=== PATIENT | female | born 1945 | race Caucasian/White ===

== ENCOUNTER 2019-11-02 12:06 | Inpatient (IN) | payer MEDICARE, OTHER ==
[~2019-11-02] VITALS: Ht 160 cm; Wt 81.2 kg
--- OUTSIDE RECORDS SUMMARY | ~2019-11-02 | XMS | Encounter Summary ---
Demographics + + + | Address | [address] | | | [place] [address] | + + + | Home Phone | | + + + | Preferred Language | Unknown | + + + | Marital Status | | + + + | Muslim Affiliation | 1009 | + + + | Race | Unknown | + + + | Ethnic Group | Unknown | + + + Author + + + | Author | [facility] | | | and Leifana | + + + | Organization | [facility] | | | and Leifana | + + + | Address | Unknown | + + + | Phone | Unavailable | + + + Support + + +---------+ + | Name | Relationship | Address | Phone | + + +---------+ + | Ruben Kolb | ECON | Unknown | | + + +---------+ + Care Team Providers + +------+ + | Care Paint Pourer Name | Role | Phone | + +------+ + PCP | Unavailable | + +------+ + Encounter Details +--------+ + + + + | Date | Type | Department | Care Team | Description | +--------+ + + + + | 06/09/ | [facility] | [facility] | Luis Duron, | | | 1998 | Encounter | MED CTR XRAY [address] | MD [address] [facility] | | | | | Janet Garcia | [place] | | | | | [place] [address] | [address] | | | | | [phone] | | | +--------+ + + + + Social History + +-------+ +--------+------+ | Tobacco Use | Types | Packs/Day | Years | Date | | | | | Used | | + +-------+ +--------+------+ | Never Assessed | | | | | + +-------+ +--------+------+ + + + | Sex Assigned at | Date Recorded | | | | + + + | Not on file | | + + + + + + + | Job Start Date | Occupation | Industry | + + + + | Not on file | Not on file | Not on file | + + + + + + + + | Travel History | Travel Start | Travel End | + + + + + + | No recent travel history available. | + + documented as of this encounter Plan of Treatment Not on filedocumented as of this encounter Visit Diagnoses Not on filedocumented in this encounter"
--- OUTSIDE RECORDS SUMMARY | ~2019-11-02 | XMS | Encounter Summary ---
Demographics + + + | Address | [address] | | | [place] [address] | + + + | Home Phone | | + + + | Preferred Language | Unknown | + + + | Marital Status | Single | + + + | Hindu Affiliation | Unknown | + + + | Race | Unknown | + + + | Ethnic Group | Other Race | + + + Author + + + | Author | [facility] | + + + | Organization | [facility] | + + + | Address | Unknown | + + + | Phone | Unavailable | + + + Care Team Providers + +------+ + | Care Fire Control Technician G Name | Role | Phone | + +------+ + PCP | Unavailable | + +------+ + Encounter Details +--------+ + + + + | Date | Type | Department | Care Team | Description | +--------+ + + + + | 12/26/ | Hospital | Dermatopathology | | | | 2012 | Encounter | [address] | | | | | | Mailcode: CH16D | | | | | | [facility] | | | | | | and Healing, | | | | | | [address] | | | | | | Floor [place], [place] | | | | | | [address] | | | | | | [phone] | | | +--------+ + + + [...]
--- OUTSIDE RECORDS SUMMARY | ~2019-11-02 | XMS | Encounter Summary ---
Demographics + + + | Address | [address] | | | [place] [address] | + + + | Home Phone | | + + + | Preferred Language | Unknown | + + + | Marital Status | | + + + | Nondenominational Affiliation | 1009 | + + + | Race | Unknown | + + + | Ethnic Group | Unknown | + + + Author + + + | Author | [facility] | | | and Leifana | + + + | Organization | [facility] | | | and Leifana | [...] Team Providers + +------+ + | Care Subassembler Name | Role | Phone | + +------+ + PCP | Unavailable | + +------+ + Encounter Details +--------+ + + + + | Date | Type | Department | Care Team | Description | +--------+ + + + + | 06/21/ | Hospital | [facility] GENERIC OP | | LOC OSTEOARTH | | 2003 | Encounter | CONVERSION [address] | | NOS-L/LEG | | | | DESIRE STEINER | | | | | | [place] | | | | | | [address] | | | | | | [phone] | | | +--------+ + + + [...] filedocumented as of this encounter Visit Diagnoses + + | Diagnosis | + + | Localized osteoarthrosis not specified whether primary or secondary, lower leg | + + documented in this encounter"
--- OUTSIDE RECORDS SUMMARY | ~2019-11-02 | XMS | Clinical Summary ---
Demographics + + + | Address | [address] | | | [place] [address] | + + + | Home Phone | | + + + | Preferred Language | Unknown | + + + | Marital Status | | + + + | Jain Affiliation | 1009 | + + + | Race | Unknown | + + + | Ethnic Group | Unknown | + + + Author + + + | Author | [facility] | | | and Leifana | + + + | Organization | [facility] | | | and Leifana [...] + +------+ + | Care Fire Control Officer Name | Role | Phone | + +------+ + | Sebastian Mann MD | PCP | | + +------+ + Allergies Not on File Medications Not on file Active Problems Not on file Social History + +-------+ +--------+------+ | Tobacco [...] recent travel history available. | + + Last Filed Vital Signs Not on file Plan of Treatment + + + + + | Health Maintenance | Due Date | Last Done | Comments | + + + + + | Vaccine: | | | | | Dtap/Tdap/Td (1 - | 8 | | | | Tdap) | | | | + + + + + | Vaccine: Zoster (1 | | | | | of 2) | 7 | | | + + + + + | Breast Cancer | | | | | Screening | 2 | | | + + + + + | Vaccine: | | | | | Pneumococcal 65+ (1 | 2 | | | | of 2 - PCV13) | | | | + + + + + | Vaccine: Influenza | | | | | (Season Ended) | 0 | | | + + + + + Results Not on filefrom Last 3 Months Insurance + +--------+ +--------+ +---------+--------+ | Payer | Benefi | Subscriber | Effect | Phone | Address | Type | | | t Plan | ID | medina | | | | | | / | | Dates | | | | | | Group | | | | | | + +--------+ +--------+ +---------+--------+ | MEDICARE | MEDICA | [id number] | 09/25/19 | [phone] | | Medica | | | RE | | 12-Pre | 5 | | re | | | PART A | | sent | | | | | | AND B | | | | | | + +--------+ +--------+ +---------+--------+ + +--------+ +--------+ + + | Guarantor Name | Accoun | Relation to | Date | Phone | Billing Address | | | t Type | Patient | of | | | | | | | | | | + +--------+ +--------+ + + | Lissette Kolb | Person | Self [birth year] | [address] | | | al/Shan | | 1946 | [phone] | [place] | | | [place] | | | [address] ([place]) | [address] | + +--------+ +--------+ + +"
--- OUTSIDE RECORDS SUMMARY | ~2019-11-02 | XMS | Clinical Summary ---
Demographics + + + | Address | [address] | | | [place] [address] | + + + | Home Phone | | + + + | Preferred Language | Unknown | + + + | Marital Status | Single | + + + | Methodist Affiliation | Unknown | + + + | Race | Unknown | + + + | Ethnic Group | Other Race | + + + Author + + + | Author | [facility] | + + + | Organization | [facility] | + + + | Address | Unknown | + + + | Phone | Unavailable | + + + Care Team Providers + +------+ + | Care Director Of Restaurant Operations Name | Role | Phone | + +------+ + PCP | Unavailable | + +------+ + Source Comments JORGE is fully live on both [facility] Ambulatory and [facility] InPatient.[facility] Allergies Not on File Medications Not on [...] Signs Not on file Plan of Treatment Not on file Results Not on filefrom Last 3 Months Insurance + +--------+ +--------+ + +--------+ | Payer | Benefi | Subscriber | Effect | Phone | Address | Type | | | t Plan | ID | medina | | | | | | / | | Dates | | | | | | Group | | | | | | + +--------+ +--------+ + +--------+ | MEDICARE | MEDICA | xxxxxxxxxx | Effect | [phone] | [address] | Medica | | | RE A & | | medina | [address] | [address] | re | | | B | | for | | [place], [place] | | | | | | all | | [phone] | | | | | | dates | | | | + +--------+ +--------+ + +--------+ | [employer] [place] | MUTUAL | [id number] | Effect | | | Indemn | | | OF | | med[place] | | | [place] | | | [place] | | for | | | | | | | | all | | | | | | | | dates | | | | + +--------+ +--------+ + +--------+ + +--------+ +--------+ + + | Guarantor Name | Accoun | Relation to | Date | Phone | Billing Address | | | t Type | Patient | of | | | | | | | | | | + +--------+ +--------+ + + | Lissette Kolb | Person | Self [birth year] | [address] | | | al/Fam | | 1946 | [phone] | [place] | | | [place] | | | 3 (Home) | [address] | + +--------+ +--------+ + +"
--- OUTSIDE RECORDS SUMMARY | ~2019-11-02 | XMS | Encounter Summary ---
Demographics + + + | Address | [address] | | | [place] [address] | + + + | Home Phone | | + + + | Preferred Language | Unknown | + + + | Marital Status | Single | + + + | Worship Affiliation | Unknown | + + + | Race | Unknown | + + + | Ethnic Group | Other Race | + + + Author + + + | Author | [facility] | + + + | Organization | [facility] | + + + | Address | Unknown | + + + | Phone | Unavailable | + + + Care Team Providers + +------+ + | Care Wood Caulker Name | Role | Phone | + +------+ + PCP | Unavailable | + +------+ + Encounter Details +--------+ + + + + | Date | Type | Department | Care Team | Description | +--------+ + + + + | 12/26/ | Hospital | Dermatopathology | | | | 2012 | Encounter | [address] | | | | | | Mailcode: CH16D | | | | | | [facility] | | | | | | and Healing, | | | | | | [address] | | | | | | Floor [place], [place] | | | | | | [address] | | | | | | [phone] | | | +--------+ + + + [...]
--- OUTSIDE RECORDS SUMMARY | ~2019-11-02 | XMS | Clinical Summary ---
Demographics + + + | Address | [address] | | | [place] [address] | + + + | Home Phone | | + + + | Preferred Language | Unknown | + + + | Marital Status | | + + + | Religion Affiliation | 1009 | + + + | Race | Unknown | + + + | Ethnic Group | Unknown | + + + Author + + + | Author | [facility] | | | and Leifana | + + + | Organization | [facility] | | | and Leifana [...] Team Providers + +------+ + | Care Delivery Person Name | Role | Phone | + [...] +--------+ +---------+--------+ | MEDICARE | MEDICA | [id number] | 09/25/19 | [phone] | | Medica [...] | | al/Shan | | 1946 | [phone] | [place] | | | [place] | | | [address] ([place]) | [address] | + +--------+ +--------+ + +"
--- OUTSIDE RECORDS SUMMARY | ~2019-11-02 | XMS | Clinical Summary ---
Demographics + + + | Address | [address] | | | [place] [address] | + + + | Home Phone | | + + + | Preferred Language | Unknown | + + + | Marital Status | Single | + + + | Buddhist Affiliation | Unknown | + + + | Race | Unknown | + + + | Ethnic Group | Other Race | + + + Author + + + | Author | [facility] | + + + | Organization | [facility] | + + + | Address | Unknown | + + + | Phone | Unavailable | + + + Care Team Providers + +------+ + | Care Maple Sugar Maker Name | Role | Phone | + +------+ + PCP | Unavailable | + +------+ + Source Comments JORGE is fully live on both [facility] Ambulatory and [facility] InPatient.[facility] Allergies Not on File Medications Not on [...] | | | | all | | [address] | | | | | | dates | | | | + +--------+ +--------+ + +--------+ | [employer] [place] | MUTUAL | [id number] | Effect | | | Indemn | | | OF | | medina | | | ity | | | [place] | | for | | | | [...] | | al/Fam | | 1946 | [phone] | [place] | | | [place] | | | 3 (Home) | [address] | + +--------+ +--------+ + +"
--- OUTSIDE RECORDS SUMMARY | ~2019-11-02 | XMS | Encounter Summary ---
Demographics + + + | Address | [address] | | | [place] [address] | + + + | Home Phone | | + + + | Preferred Language | Unknown | + + + | Marital Status | Single | + + + | Rastafari Affiliation | Unknown | + + + | Race | Unknown | + + + | Ethnic Group | Other Race | + + + Author + + + | Author | [facility] | + + + | Organization | [facility] | + + + | Address | Unknown | + + + | Phone | Unavailable | + + + Care Team Providers + +------+ + | Care Tunnel Mucker Name | Role | Phone | + +------+ + PCP | Unavailable | + +------+ + Encounter Details +--------+ + + + + | Date | Type | Department | Care Team | Description | +--------+ + + + + | 12/08/ | Hospital | Dermatopathology | | | | 2012 | Encounter | [address] | | | | | | Mailcode: CH16D | | | | | | [facility] | | | | | | and Healing, | | | | | | [address], [address] | | | | | | Floor [place], [place] | | | | | | [address] | | | | | | [phone] | | | +--------+ + + + [...] Not on filedocumented as of this encounter Procedures + +--------+ + + + | Procedure Name | Priori | Date/Time | Associated Diagnosis | Comments | | | ty | | | | + +--------+ + + + | DERMATOPATHOLOGY(WET | Routin | 12/26/2012 | | Results for this | | [facility]) | e | | | procedure are in the | | | | | | results section. | + +--------+ + + + | DERMATOPATHOLOGY(WET | Routin | 12/08/2012 | | Results for this | | [facility]) | e | | | procedure are in the | | | | | | results section. | + +--------+ + + + documented in this encounter Results DERMATOPATHOLOGY(WET [facility]) (12/26/2012) + + + + + + | Component | Value | Ref Range | Performed | Pathologist | | | | | At | Signature | + + + + + + | DERMATOPATH | SOURCE OF SPECIMEN:A Rt. | | [facility] | | | OLOGY(WET | proximal forearm, | | DERMATOPATH | | | MNT) | excision CLINICAL | | OLOGY | | | | DESCRIPTION:Please read | | | | | | margins bx. proven | | | | | | malignant melanoma | | | | | | sutures at digital apex. | | | | | | GROSS | | | | | | DESCRIPTION:Received in | | | | | | formalin is a specimen | | | | | | labeled [place], | | | | | | Lissette:A: Specimen is | | | | | | labeled "R forearm" and | | | | | | consists of an ellipse | | | | | | of brown-osirisin, | | | | | | [id number]. The specimen | | | | | | is oriented by a suture | | | | | | at one apex, which | | | | | | isdesignated as the | | | | | | distal apex. With the | | | | | | suture in the 12:00 | | | | | | position, thespecimen is | | | | | | inked blue from | | | | | | 12:00-3:00-6:00 and | | | | | | black from | | | | | | 6:00-9:00-12:00.The | | | | | | tissue is serially | | | | | | sectioned from 12:00 to | | | | | | 6:00 and | | | | | | submittedrespectively in | | | | | | cassettes A1 | | | | | | | | | | | | A6. MICROSCOPIC | | | | | | DESCRIPTION:There are an | | | | | | increased number of | | | | | | collagen bundles with | | | | | | fibrocytes | | | | | | arrangedparallel to the | | | | | | skin surface with | | | | | | vertically oriented | | | | | | blood vessels. In oneof | | | | | | the sections, there is a | | | | | | small, mostly well | | | | | | circumscribed, | | | | | | predominatelyjunctional | | | | | | melanocytic neoplasm | | | | | | characterized by round | | | | | | to oval nests andsingle | | | | | | melanocytes distributed | | | | | | primarily along the | | | | | | basal layer. Most of | | | | | | themelanocytic nuclei | | | | | | are round to oval, and | | | | | | the cells contain | | | | | | amphophiliccytoplasm | | | | | | with melanin. | | | | | | DIAGNOSIS:SCAR. | | | | | | NOTE: There is no | | | | | | evidence of residual | | | | | | melanoma in these | | | | | | sections. In oneof the | | | | | | sections away from scar, | | | | | | there is a small | | | | | | INCIDENTAL | | | | | | MELANOCYTICNEVUS, | | | | | | JUNCTIONAL TYPE which | | | | | | also appears to be | | | | | | completely excised. | | | | | | VBK:emr12/31/12 | | | | | | My electronic signature | | | | | | indicates that I have | | | | | | personally reviewed | | | | | | alldiagnostic slides, | | | | | | the gross and/or | | | | | | microscopic portion of | | | | | | thisreport and | | | | | | formulated the final | | | | | | diagnosis. | | | | | | Rendering Diagnostician: | | | | | | Bobo Jackson | | | | | | M.DWileyPathologistElectroni | | | | | | ana Signed 01/01/2013 | | | | | | 7:14AM | | | | + + + + + + + + | Specimen | + + | | + + + + + + + | Performing | Address | City/State/Zipcode | Phone Number | | Organization | | | | + + + + + | [facility] | [address] | [place] [address] | | | DERMATOPATHOLOGY | [address] | | | + + + + + DERMATOPATHOLOGY(LEON DUGGAN) (12/08/2012) + + + + + + | Component | Value | Ref Range | Performed | Pathologist | | | | | At | Signature | + + + + + + | DERMATOPATH | SOURCE OF SPECIMEN:A Rt. | | [facility] | | | OLOGY(WET | proximal radial | | DERMATOPATH | | | MNT) | forearm, shave biopsy | | OLOGY | | | | CLINICAL | | | | | | DESCRIPTION:R/o | | | | | | atypa/malignancy. | | | | | | GROSS | | | | | | DESCRIPTION:Received in | | | | | | formalin is a specimen | | | | | | labeled [place], | | | | | | Lissette:A: Specimen is | | | | | | labeled "R prox radial | | | | | | forearm" and consists of | | | | | | an irregularshave of | | | | | | white-brown skin, | | | | | | [id number]. The surgical | | | | | | margin is inked black; | | | | | | thetissue is | | | | | | quadrisected, and | | | | | | entirely submitted in | | | | | | cassette A1. | | | | | | MICROSCOPIC | | | | | | DESCRIPTION:There is a | | | | | | moderately broad, not | | | | | | entirely symmetric, | | | | | | compound | | | | | | melanocyticneoplasm | | | | | | composed of nests, some | | | | | | of them of varying size, | | | | | | as well as | | | | | | singlemelanocytes | | | | | | distributed somewhat | | | | | | irregularly both along | | | | | | and focally abovethe | | | | | | basal layer, including | | | | | | in the mid and upper | | | | | | spinous layers | | | | | | (highlightedwith Melan-A | | | | | | and SOX-10). Beneath, | | | | | | there is a dense | | | | | | infiltrate oflymphocytes | | | | | | and histiocytes, as | | | | | | well as fibrosis. Most | | | | | | of the melanocyticnuclei | | | | | | are moderately large, | | | | | | some of them are | | | | | | irregularly shaped, and | | | | | | mostcontain increased | | | | | | amounts of amphophilic | | | | | | cytoplasm. In a few | | | | | | areas, thereare | | | | | | occasional nests and | | | | | | cords of more uniform | | | | | | appearing | | | | | | melanocytespresent in | | | | | | the upper papillary | | | | | | dermis where there is | | | | | | also solar elastosis. | | | | | | DIAGNOSIS:MELANOMA, | | | | | | RIGHT PROXIMAL RADIAL | | | | | | FOREARM, MEASURING | | | | | | APPROXIMATELY 0.35MM | | | | | | INTHICKNESS, | | | | | | NON-ULCERATED, IN | | | | | | ASSOCIATION WITH A | | | | | | PRE-EXISTING NEVUS. | | | | | | NOTE: While subtle, | | | | | | marked asymmetry within | | | | | | the epidermal | | | | | | componentsuggests | | | | | | MELANOMA, in which | | | | | | precise thickness | | | | | | measurements are | | | | | | challenginggiven an | | | | | | indistinct interface | | | | | | with pre-existing nevus. | | | | | | The melanoma, whichhas | | | | | | less than one | | | | | | mitosis/mm2 in the small | | | | | | dermal component, | | | | | | extendsclosely to the | | | | | | peripheral margins and | | | | | | additional treatment to | | | | | | ensurecomplete removal | | | | | | would be prudent. | | | | | | KPW:emr12/11/12 My | | | | | | electronic signature | | | | | | indicates that I have | | | | | | personally reviewed | | | | | | alldiagnostic slides, | | | | | | the gross and/or | | | | | | microscopic portion of | | | | | | thisreport and | | | | | | formulated the final | | | | | | diagnosis. | | | | | | Rendering Diagnostician: | | | | | | Nicholas Kovacs | | | | | | NoelPathologistElectroni | | | | | | ana Signed 12/12/2012 | | | | | | 11:28AM | | | | + + + + + + + + | Specimen | + + | | + + + + + + + | Performing | Address | City/State/Zipcode | Phone Number | | Organization | | | | + + + + + | [facility] | [address] | [place] [address] | | | DERMATOPATHOLOGY | [address] | | | + + + + + documented in this encounter Visit Diagnoses Not on filedocumented in this encounter
--- OUTSIDE RECORDS SUMMARY | ~2019-11-02 | XMS | Encounter Summary ---
Demographics + + + | Address | [address] | | | [place] [address] | + + + | Home Phone | | + + + | Preferred Language | Unknown | + + + | Marital Status | | + + + | Bahai Affiliation | 1009 | + + + | Race | Unknown | + + + | Ethnic Group | Unknown | + + + Author + + + | Author | [facility] | | | and Leifana | + + + | Organization | [facility] | | | and Leifana [...] Team Providers + +------+ + | Care Meter/Relay Craftsman Name | Role | Phone | + +------+ + PCP | Unavailable | + +------+ + Encounter Details +--------+ + + + + | Date | Type | Department | Care Team | Description | +--------+ + + + + | 06/09/ | [facility] | [facility] | Luis Duron, | | | 1998 | Encounter | MED CTR XRAY [address] | MD [address] [facility] | | | | | [place] | [place] | | | | | [place] [address] | [address] | | | | | [phone] | | | +--------+ + + + [...]
--- OUTSIDE RECORDS SUMMARY | ~2019-11-02 | XMS | Encounter Summary ---
Demographics + + + | Address | [address] | | | [place] [address] | + + + | Home Phone | | + + + | Preferred Language | Unknown | + + + | Marital Status | Single | + + + | Taoist Affiliation | Unknown | + + + [...] Team Providers + +------+ + | Care Creosoting Engineer Name | Role | Phone | + [...] [address] | | | | | | [facility] | | | | | | and Healing, | | | | | | [address] | | | | | | Floor [place], [place] | | | | | | [address] | | | | | | [phone] | | | +--------+ + + + [...] brown-osirisin, | | | | | | [id number]. The specimen | | | | | [...] [facility] | [address] | [place] [address] | | | DERMATOPATHOLOGY | [address] [...] | | | | | | labeled [place], | | | | | | Lissette:A: Specimen is | | | | | | labeled "R prox radial | | | | | | forearm" and consists of | | | | | | an irregularshave of | | | | | | white-brown skin, | | | | | | [id number]. The surgical | | | | | [...] [facility] | [address] | [place] [address] | | | DERMATOPATHOLOGY | [address] | | | + + + + + documented in this encounter Visit Diagnoses Not on filedocumented in this encounter
--- OUTSIDE RECORDS SUMMARY | ~2019-11-02 | XMS | Encounter Summary ---
Demographics + + + | Address | [address] | | | [place] [address] | + + + | Home Phone | | + + + | Preferred Language | Unknown | + + + | Marital Status | | + + + | Islam Affiliation | 1009 | + + + | Race | Unknown | + + + | Ethnic Group | Unknown | + + + Author + + + | Author | [facility] | | | and Leifana | + + + | Organization | [facility] | | | and Leifana | [...] Team Providers + +------+ + | Care Acid Bleacher Name | Role | Phone | + +------+ + PCP | Unavailable | + +------+ + Encounter Details +--------+ + + + + | Date | Type | Department | Care Team | Description | +--------+ + + + + | 06/09/ | [facility] | [facility] | Luis Duron, | | | 1998 | Encounter | MED CTR XRAY [address] | MD [address] [facility] | | | | | Janet Garcia | [place] | | | | | [place] [address] | [id number] | | | | | [phone] | | | +--------+ + + + [...]
--- OUTSIDE RECORDS SUMMARY | ~2019-11-02 | XMS | Encounter Summary ---
Demographics + + + | Address | [address] | | | [place] [address] | + + + | Home Phone | | + + + | Preferred Language | Unknown | + + + | Marital Status | | + + + | Anabaptist Affiliation | 1009 | + + + | Race | Unknown | + + + | Ethnic Group | Unknown | + + + Author + + + | Author | [facility] | | | and Leifana | + + + | Organization | [facility] | | | and Leifana [...] Team Providers + +------+ + | Care Site Director Name | Role | Phone | + [...] [place] | | | | | | [address] | | | | | | [phone] | | | +--------+ + + + [...]
--- OUTSIDE RECORDS SUMMARY | ~2019-11-02 | XMS | Encounter Summary ---
Demographics + + + | Address | [address] | | | [place] [address] | + + + | Home Phone | | + + + | Preferred Language | Unknown | + + + | Marital Status | Single | + + + | Mandaeism Affiliation | Unknown | + + + | Race | Unknown | + + + | Ethnic Group | Other Race | + + + Author + + + | Author | [facility] | + + + | Organization | [facility] | + + + | Address | Unknown | + + + | Phone | Unavailable | + + + Care Team Providers + +------+ + | Care Narcotics Detective Name | Role | Phone | + [...] [id number] | | | | | | [facility] | | | | | | and Healing, | | | | | | [address] | | | | | | Floor [place], [place] | | | | | | [address] | | | | | | [phone] | | | +--------+ + + + [...]
--- OUTSIDE RECORDS SUMMARY | ~2019-11-02 | XMS | Clinical Summary ---
Demographics + + + | Address | [address] | | | [place] [address] | + + + | Home Phone | | + + + | Preferred Language | Unknown | + + + | Marital Status | | + + + | Jew Affiliation | 1009 | + + + | Race | Unknown | + + + | Ethnic Group | Unknown | + + + Author + + + | Author | [facility] | | | and Leifana | + + + | Organization | [facility] | | [...] Team Providers + +------+ + | Care Paralegal Secretary Name | Role | Phone | + [...] +--------+ +---------+--------+ | MEDICARE | MEDICA | [id number] | 09/25/19 | [phone] | | Medica [...] | | al/Shan | | 1946 | [phone] | [place] | | | rosie | | | [address] ([place]) | [phone] | + +--------+ +--------+ + +"
--- OUTSIDE RECORDS SUMMARY | ~2019-11-02 | XMS | Encounter Summary ---
Demographics + + + | Address | [address] | | | [place] [address] | + + + | Home Phone | | + + + | Preferred Language | Unknown | + + + | Marital Status | Single | + + + | Gnosticism Affiliation | Unknown | + + + | Race | Unknown | + + + | Ethnic Group | Other Race | + + + Author + + + | Author | [facility] | + + + | Organization | [facility] | + + + | Address | Unknown | + + + | Phone | Unavailable | + + + Care Team Providers + +------+ + | Care Capsule Maker Name | Role | Phone | [...] [id number] | | | | | | [facility] | | | | | | and Healing, | | | | | | [address], [address] | | | | | | Floor [place], [place] | | | | | | [address] | | | | | | [phone] | | | +--------+ + + + [...] brown-osirisin, | | | | | | [id number]. The specimen | | | | | [...] [facility] | [address] | [place] [address] | | | DERMATOPATHOLOGY | [address] [...] | | | | | | labeled [place], | | | | | | Lissette:A: Specimen is | | | | | | labeled "R prox radial | | | | | | forearm" and consists of | | | | | | an irregularshave of | | | | | | white-brown skin, | | | | | | [id number]. The surgical | | | | | [...] [facility] | [address] | [place] [address] | | | DERMATOPATHOLOGY | [address] | | | + + + + + documented in this encounter Visit Diagnoses Not on filedocumented in this encounter
--- OUTSIDE RECORDS SUMMARY | ~2019-11-02 | XMS | Encounter Summary ---
Demographics + + + | Address | [address] | | | [place] [address] | + + + | Home Phone | | + + + | Preferred Language | Unknown | + + + | Marital Status | | + + + | Roman Catholic Affiliation | 1009 | + + + | Race | Unknown | + + + | Ethnic Group | Unknown | + + + Author + + + | Author | [facility] | | | and Leifana | + + + | Organization | [facility] | | | and Leifana [...] Team Providers + +------+ + | Care Anesthesiology Resident Name | Role | Phone | + [...] [place] | | | | | | [address] | | | | | | [phone] | | | +--------+ + + + [...]
--- OUTSIDE RECORDS SUMMARY | ~2019-11-02 | XMS | Clinical Summary ---
Demographics + + + | Address | [address] | | | [place] [address] | + + + | Home Phone | | + + + | Preferred Language | Unknown | + + + | Marital Status | Single | + + + | Adventism Affiliation | Unknown | + + + | Race | Unknown | + + + | Ethnic Group | Other Race | + + + Author + + + | Author | [facility] | + + + | Organization | [facility] | + + + | Address | Unknown | + + + | Phone | Unavailable | + + + Care Team Providers + +------+ + | Care Clinical Writer Name | Role | Phone | + +------+ + PCP | Unavailable | + +------+ + Source Comments JORGE is fully live on both [facility] Ambulatory and [facility] InPatient.[facility] Allergies Not on File Medications Not [...] | | | | all | | [id number] | | | | | | dates | | | | + +--------+ +--------+ + +--------+ | [employer] | [employer]UAL | [id number] | Effect | | | Indemn | | | OF | | medina | | | ity | | | [place] | | for | | | | [...] | | al/Fam | | 1946 | [phone] | [place] | | | [place] | | | 3 (Home) | [address] | + +--------+ +--------+ + +"
[~2019-11-02 12:06] MED LIST: ALEVE220 MG PO; AMLODIPINE BESYL5 MG PO; BACTRIM DS TAB1 EACH PO; COZAAR25 MG PO; DILAUDID4 MG PO; DRISDOL50000 UNIT PO; HYDROCHLOROTH12.5 MG PO; HYDROCHLOROTHIA25 MG PO; IBUPROFEN800 MG PO; LEXAPRO20 MG PO; LOSARTAN POTAS100 MG PO; METOPROLOL TAR100 MG PO; METOPROLOL TART25 MG PO; MIRALAX17 GM PO; NORVASC5 MG PO; NUCYNTA100 MG PO; PHYSICIANS1000 MCG/1 INJ; PRILOSEC20 MG PO; XARELTO10 MG PO
[2019-11-02] MEDS ORDERED: CIPROFLOXACIN500 MG PO (12:21)
--- NOTE | 2019-11-02 19:05 | NUR ---
BEDSIDE REPORT RECEIVED FROM GARY MENDOZA. pt RESTING IN BED AWAKE, DENIES ANY NEEDS AT THIS TIME. IVF INFUSING WNL ORDERED. CALL LIGHT IN REACH.
--- NOTE | 2019-11-02 19:50 | NUR ---
CALL LIGHT ANSWERED, pt C/O INABILITY TO SLEEP OVER PAST WEEK. MD NOTIFIED, TO PLACE ORDERS FOR SLEEP MEDICATION.
--- NOTE | 2019-11-02 20:40 | NUR ---
pt ASSISTED TO RESTROOM, 2PA WITH FWW, TOLERATED WELL, GAIT SLOW, pt C/O FEELING WEAK. IV SITE FLUSHED, INFUSING WNL ORDERED. pt ALERT AND ORIENTED TO ALL. BACK IN BED, VSS. CALL LIGHT IN REACH.
--- NOTE | 2019-11-02 21:30 | NUR ---
PT CALLED. WANTED TO KNOW IF THE "NOISE" FROM THE IV POLE WAS GOING TO HAPPEN ALL NIGHT. OFFERED AND SHE ACCEPTED EAR PLUGS. MOVED IV POLE FURTHER AWAY FROM BED. TV TURNED ON FOR HER/
--- NOTE | 2019-11-02 21:50 | NUR ---
pt ASSESSMENT COMPLETE. DENIES PAIN WITH URINATION. DENIES NAUSEA. CALL LIGHT IN REACH.
--- NOTE | 2019-11-02 23:36 | NUR ---
PATIENT REFUSED TO BRUSH/OREL CARE.
--- NOTE | 2019-11-02 23:45 | NUR ---
CALL LIGHT ANSWERED, 1PA WITH AGAPITO WEINER TO RESTROOM AND BACK TO BED. NO REQUESTS AT THIS TIME. CALL LIGHT IN REACH.
--- NOTE | 2019-11-03 00:45 | NUR ---
CALL LIGHT ANSWERED. 1PA TO RESTROOM WITH FWW FOR VOID AND BACK TO BED, INCONTINENCE NOTED. PRN HEARTBURN MEDICATION ADMINISTERED REQUESTED. VSS. IVF INFUSING WNL ORDERED. CALL LIGHT IN REACH.
--- NOTE | 2019-11-03 02:31 | NUR ---
CALL LIGHT ANSWERED. 1PA TO RESTROOM WITH FWW FOR VOID, INCONTINENT IN ATTENDS, ATTENDS CHANGED. BACK IN BED, ASSESSMENT COMPLETE. pt C/O NAUSEA, PRN MEDICATION ADMINISTERED. IVF INFUSING WNL ORDERED. pt DENIES ANY ADDITIONAL NEEDS AT THIS TIME. CALL LIGHT IN REACH.
--- NOTE | 2019-11-03 04:14 | NUR ---
CALL LIGHT ANSWERED. 1PA TO RESTROOM FOR VOID, INCONTINENCE IN ATTENDS, BED, LINENS CHANGED, ATTENDS IN PLACE. pt BACK IN BED. NEW BAG IVF INFUSING WNL ORDERED. CALL LIGHT IN REACH.
--- NOTE | 2019-11-03 05:40 | NUR ---
pt USING CALL LIGHT FOR FREQUENT VOIDS, INCONTINENT IN ATTENDS, DRIBBLING NOTED. 1PA WITH WALKER TO RESTROOM. IVF INFUSING ORDERED THROUGHOUT SHIFT. C/O NAUSEA, PRN MEDICATION X 1. PRN SLEEP MEDICATION ADMINISTERED, pt STATES "DID NOT HAVE A GOOD NIGHT OF SLEEP".
--- NOTE | 2019-11-03 06:05 | NUR ---
CALL LIGHT ANSWERED. 1PA TO BSC FOR VOID, URGENCY. INCONTINENCE IN ATTENDS. ATTENDS CHANGED. pt BACK IN BED. VSS. IVF INFUSING WNL ORDERED. CALL LIGHT IN REACH.
--- NOTE | 2019-11-03 06:43 | NUR ---
NOTIFIED DR JARAMILLO OF CRITICAL LAB VALUE PHOS, OF 0.7, NO NEW ORDERS RECEIVED AT THIS TIME.
--- NOTE | 2019-11-03 07:45 | NUR ---
PATIENT USING THE BATHROOM. RN IN ROOM. PATIENT BACKS TO BED. PATIENT USES WALKER. TWO PERSON ASSISTING. WARM BLANKET PROVIDED. BED ALAR ON. WHITE BOARD UPDATED. CALL LIGHT WITHIN REACH. NO OTHER NEEDS AT THIS TIME
--- NOTE | 2019-11-03 07:50 | NUR ---
BEDSIDE REPORT.. PT RESTING IN BED ALERT NO DISTRESS NOTED, NO REQUESTS AT THIS TIME.
--- NOTE | 2019-11-03 08:15 | NUR ---
PT ASSISSTED UP TO SITTING POSITION TO EAT BREAKFAST. NO COMPLAINTS. OTHER THAN PT REPORTS SHE IS VERY TIRED.
--- NOTE | 2019-11-03 08:32 | NUR ---
CALL LIGHT ANSWERED. PATIENT RESTING IN BED. PATIENT WOULD LIKE TURN OFF THE LIGHTS TO REST. TURN OFF THE LIGHTS. THE PATIENT WOULD LIKE TO HAVE A BEDBATH LATER. CALL LIGHT WITHIN REACH. NO OTHER NEEDS AT THIS TIME
--- NOTE | 2019-11-03 09:42 | NUR ---
PATIENT RESTING IN BED. VITAL SIGNS AND I&O DONE. LOW DYASTOLIC BLOOD PRESSURE. RN NOTIFIED. CALL LIGHT WITHIN REACH. NO OTHER NEEDS AT THIS TIME
--- NOTE | 2019-11-03 10:00 | NUR ---
PT HAS MORE IV ABX TO INFUSE. SHE REPORTS SHE IS MISSING HER TODAY. SHE HAS NO COMPLAINTS OTHER THAN TIRED.
--- NOTE | 2019-11-03 11:23 | NUR ---
PATIENT RESTING IN BED. PATIENT GOES TO USE THE BATHROOM. PATIENT USES WALKER. TWO PERSON ASSISTING. PATIENT'S ADULT PULL UP CHANGED. PERICARE PERFORMED. PATIENT BACKS TO BED. CALL LIGHT WITHIN REACH. NO OTHER NEEDS AT THIS TIME
--- NOTE | 2019-11-03 11:48 | NUR ---
PT ALERT, ORIENTED AND LAYING IN BED IN POSITION ON L SIDE. PT STATED THAT SHE IS NOT FEELING BETTER, REQUESTED PRAYER. GAVE PT A G.POST AND P. SHAWL. VISIT WENT ON PT SEEMED TO BE CONFUSED ABOUT DAY, GARY CHAVIS DID VOICE SAME CONCERN. DID NOTE BRUISING ON HER FOREHEAD
--- NOTE | 2019-11-03 12:30 | NUR ---
Spoke with Jem. She lives with her spouse Rubne. States this is her second UTI since July and she becomes very ill with UTI. States she lives in 1 story home without steps. Has a 4 w walker and does well with it. States she does not drive, her spouse drives her. C/o feeling very tired and nauseated. States she feels very embarrased as she was confused last night. Assured to not feel embarrassed as it was due to her UTI. She states the nurses have been so kind to her. Plans on going home at discharge with her spouse.
--- NOTE | 2019-11-03 13:32 | NUR ---
PATIENT RESTING IN BED. PATIENT'S LUNCH ORDERED. VITAL SIGNS AND I&O DONE. CALL LIGHT WITHIN REACH. NO OTHER NEEDS AT THIS TIME
--- NOTE | 2019-11-03 13:36 | NUR ---
PT REPORT NAUSEA, BRANCH STORE MANAGER SRI ADMINISTERED IV ZOFRAN PRN, NO EMESIS. WILL MONITOR.
--- NOTE | 2019-11-03 15:38 | NUR ---
PATIENT RESTING IN BED. BEDBATH DONE. PERICARE DONE. PATIENT USING A CLEAN GOWN AND ADULT PULL UP. CALL LIGHT WITHIN REACH. NO OTHER NEEDS AT THIS TIME
--- NOTE | 2019-11-03 15:48 | NUR ---
MARTHA ALTMAN IN PT ROOM, BED BATHING PT SHE DID NOT WANT TO SHOWER. AFTERNOON ASSESSMENT COMPLETE, NO NEW CONCERNS.
--- NOTE | 2019-11-03 16:57 | NUR ---
PT HAS REPORTED FEELING SLEEPY MOST OF SHIFT. SHE HAD ONE BOUT OF NAUSEA WAS GIVEN ZOFRAN SHE REPORTED THAT WAS EFFECTIVE. POOR APPETITE FOR LUNCH. PT HAS BEEN CONTINENT FOR MOST OF DAY SHIFT, ONE INCONT. OF URINE. FLAT/WITHDRAWN AFFECT, VERBALIZES APPRPRIATELY. REPORTS SHE WOULD LIKE HER SPOUSE TO COME IN AND VISIT. PT NOT MOTIVATED TO AMBULATE.
--- NOTE | 2019-11-03 17:07 | NUR ---
PATIENT SITTING UP IN BED. ORAL CARE DONE. VITAL SIGNS AND I&O DONE. CALL LIGHT WITHIN REACH. NO OTHER NEEDS AT THIS TIME
--- NOTE | 2019-11-03 18:06 | NUR ---
PT UP TO BATHROOM ONE PERSON ASSIST, PT REPORTED NAUSEA. PT GIVEN ZOFRAN PRN WILL MONITOR
--- NOTE | 2019-11-03 19:42 | NUR ---
BEDSIDE REPORT RECEIVED FROM GARY CHAVIS AND GARY WALKER. pt LYING IN BED AWAKE, DENIES ANY NEEDS AT THIS TIME. IVF INFUSING WNL ORDERED. CALL LIGHT IN REACH.
--- NOTE | 2019-11-03 21:20 | NUR ---
pt ASSESSMENT COMPLETE. pt DENIES PAIN, NAUSEA. INCONTINENT OF URINE, PARISH VISITOR SINTA CHANGING pt. VSS. WARM BLANKETS PROVIDED. IVF INFUSING WNL ORDERED. pt GAGGING WITH PO POTASSIUM TABLETS ADMINISTRATION. CALL LIGHT IN REACH.
--- NOTE | 2019-11-03 21:27 | NUR ---
CALL LIGHT ANSWERED, BLANKETS ADJUSTED REQUESTED. NO ADDITIONAL REQUESTS.
--- NOTE | 2019-11-03 22:24 | NUR ---
VOLTAGE TESTER WAS IN THE ROOM HELPING PATIENT USE THE BEDSIDE COMMODE. THIS GRAPHICS ARTIST HELPED PATIENT BACK TO BED. CALL LIGHT IN REACH.
--- NOTE | 2019-11-04 00:15 | NUR ---
CALL LIGHT ANSWERED. 1PA WITH FWW TO BS FOR VOID AND BM. pt BACK IN BED. IVF INFUSING WNL ORDERED. CALL LIGHT IN REACH. NO ADDITIONAL REQUESTS.
--- NOTE | 2019-11-04 01:30 | NUR ---
CALL LIGHT ANSWERED, 1PA W FWW TO BED SIDE COMMODE FOR VOID AND BACK TO BED, INCONTINENCE NOTED, ATTENDS CHANGED. pt BACK IN BED, C/O PAIN "ALL OVER FROM FALL, MIGHT BE THE REASON I CAN'T GET ANY SLEEP." MD PHONED, TELEPHONE ORDER RECEIVED, ORDERS REPEATED BACK TO VERIFY.
--- NOTE | 2019-11-04 01:40 | NUR ---
ONE TIME PAIN MEDICATION ADMINISTERED FOR 3/10 PAIN "ALL OVER FROM FALLING". pt GIVEN FREDY CRACKER TO EAT WITH MEDICATION. PO FLUIDS IN REACH. ASSESSMENT COMPLETE. CALL LIGHT IN REACH.
--- NOTE | 2019-11-04 03:25 | NUR ---
pt RESTING IN BED WITH EYES CLOSED, RR 16. LIGHTS OFF IN ROOM.
--- NOTE | 2019-11-04 04:55 | NUR ---
CALL LIGHT ANSWERED. NEW BAG IVF INFUSING ORDERED. 1PA TO BSC FOR VOID, INCONTINENCE NOTED, ATTENDS CHANGED. VS COMPLETE. pt DENIES PAIN, REQUESTING TO SLEEP. CALL LIGHT IN REACH.
--- NOTE | 2019-11-04 05:49 | NUR ---
pt UP TO BSC WITH 1PA, FWW FOR FREQUENCY IN URINATION. RESTED WELL AFTER ONE TIME DOSE PAIN MEDICATION, C/O GENERALIZED PAIN FROM FALL PRIOR TO ADMIT. IVF INFUSING WNL THROUGHOUT SHIFT. ALERT AND ORIENTED TO ALL, USING CALL LIGHT APPROPRIATELY.
--- NOTE | 2019-11-04 07:32 | NUR ---
RECEIVED REPORT FROM KATY VEGA. PT SITTING UP IN BED, PLACED CALL LIGHT TO USE RESTROOM, SATYA ALTMAN ASSITED PT TO BEDSIDE COMMODE. PT STATES PAIN IS 5/10 CURRENTLY AND "WOULD TAKE SOMETHING IF THEY WOULD GIVE IT TO ME"
--- NOTE | 2019-11-04 09:52 | NUR ---
PATIENT SLEEPY IN BED. VITAL SIGNS AND I&O DONE. PATIENT REFUSED TO TAKE HER BREAKFAST. RN NOTIFIED. CALL LIGHT WITHIN REACH. NO OTHER NEEDS AT THIS TIME
--- NOTE | 2019-11-04 10:27 | NUR ---
CALL LIGHT ANSWERED. PATIENT RESTING IN BED. PATIENT ASKS FOR SODA. SODA GIVEN. CALL LIGHT WITHIN REACH. NO OTHER NEEDS AT THIS TIME
--- NOTE | 2019-11-04 11:22 | NUR ---
PT PUT URBAN GARDENING SPECIALIST LIGHT TO REQUEST SOMETHING FOR HEARTBURN/ NAUSEA. THIS RN PTOVIDED PT WITH MAALOX AT THIS TIME AND EDUCATED PT THAT WE CAN GIVE ZOFRAN IF SHE STILL FEELS SICK
--- NOTE | 2019-11-04 11:24 | NUR ---
PATIENT SITTING UP IN CHAIR. HANDS AND FACE CLEANED. PATIENT REFUSED TO TAKE A SHOWER TODAY BECAUSE SHE DOES NOT FEEL GOOD. PATIENT ASKS FOR NAUSEA AND HEARTBURN MEDICATION. RN NOTIFIED. CALL LIGHT WITHIN REACH. NO OTHER NEEDS AT THIS TIME
--- NOTE | 2019-11-04 11:30 | NUR ---
Attempted to see pt x 2 today. Initially she was sleeping and was on the phone when I returned. Will see pt tomorrow.
--- NOTE | 2019-11-04 12:15 | NUR ---
IN PTS ROOM TO GIVE PT A PEP TALK. PT HAD BECOME VERY DEPENDENT ON NURSING STAFF TO DO EVERYTHING FOR HER. EDUCATED PT ON THE NEED TO MOVE (IMPROVE HER WEAKNESS), EAT NUTRICIOUS FOODS (IMPROVE WEAKNESS AND NAUSEA), ALSO DISCUSSED WITH PT THE IMPORTANCE OF TUCKING HER CHIN TO HER CHEST TO PREVENT ASPIRATNG ON HER LIQUIDS. PT STATED "WHAT IF I FALL ASLEEP SITTING UP?" THIS RN DISCUSSED WITH PT THAT THEN SHE FALLS ASLEEP SITTING UP JUST LIKE SHE WOULD IF SHE FELL ASLEEP IN A RECLINER.
--- NOTE | 2019-11-04 12:20 | NUR ---
PT SITTING IN CHAIR-ALERT AND ORIENTED. BREAKFAST IN FRONT OF PT-COMPLAINING STILL OF NAUSEA. GARY MENDOZA HAD JUST GIVEN MEDS TO HELP, ENCOURAGED PT TO TRY AND EAT SOMETHING. PT STATED SHE SLEPT WELL LAST NIGHT, COULD TELL THAT SHE IS MISSING HER . PT REQUESTED I CALL HIM AND SEE HOW HE IS DOING WHICH I DID. PT FEELS SHE HAS GREAT CARE AT [facility] AND IS FEELING BETTER. GAVE PT SOME ENCOURAGEMENT AND HAD PRAYER WITH HER
--- NOTE | 2019-11-04 13:12 | NUR ---
in pts room to do second assessment and to give afternoon meds
--- NOTE | 2019-11-04 13:57 | NUR ---
PATIENT RESTING IN BED. VITAL SIGNS AND I&O DONE. HEAT PACK PROVIDED. PATIENT COMPLAINS ABOUT PAIN AND ASKS FOR PAIN MEDICATION. RN NOTIFIED. CALL LIGHT WITHIN REACH. NO OTHER NEEDS AT THIS TIME
--- NOTE | 2019-11-04 14:30 | NUR ---
IN PTS ROOM TO GIVE PT 500MG OF TYLENOL FOR GENERALIZED PAIN FROM HER FALL. PT THEN ASPIRATED ON HER WATER. RE EDUCATED PT ON TUCKING HER CHIN TO CHEST TO SWALLOW. PT TUCKED CHIN TO CHEST BUT THEN TRIED TO MOVE AND PLACE WATER CUP ON TABLE WHILE DOING SO, THIS RN EDUCATED PT TO FOCUS ON HER SWALLOWING AND NOT PERFORM ANY OTHER TASKS, PT COMPLIANT WITH THIS AND UNDERSTANDS THE IMPORTANCE OF NOT ASPIRATING TO HELP PREVENT PNEUMONIA
[2019-11-04] MEDS ORDERED: TYLENOL325 MG PO (16:04)
--- NOTE | 2019-11-04 16:05 | NUR ---
MED REC COMPLETE
--- NOTE | 2019-11-04 17:11 | NUR ---
PATIENT RESTING IN BED. PATIENT GOES TO USE THE BATHROOM. PATIENT USES WALKER. ONE PERSON ASSISTING. PATIENT BACKS TO BED. IN ROOM. VITAL SIGNS AND I&O DONE. CALL LIGHT WITHIN REACH. NO OTHER NEEDS AT THIS TIME
--- NOTE | 2019-11-04 18:39 | NUR ---
CHECKED ON PT. PT APPEARS TO BE RESTING COMFORTABLY AT THIS TIME
--- NOTE | 2019-11-04 19:20 | NUR ---
bedside report from johnathon - pt was anxious today, better with in rm. bruise on forehead from prior fall very prominent and discolored today. call light in reach - currently alert and oriented - pt is known to me and recognizes me by name.
--- NOTE | 2019-11-04 20:14 | NUR ---
TOOK PATIENT TO BEDSIDE COMMODE. PATIENT IS INCONTINENT. PATIENT IS BACK IN BED. PATIENT C/O HEADACHE AND ASKING FOR PAIN MEDS. GENEVA VEGA NOTIFIED.
--- NOTE | 2019-11-04 21:17 | NUR ---
UP TO BSC WITH SENIOR SYSTEMS DEVELOPER AND NURSE - MEDICATED FOR HEADACHE DUE TO FALL PRIOR TO HOSPITAL STAY. BRUISING NOTED ON MIDLINE FORE HEAD.
--- NOTE | 2019-11-04 22:30 | NUR ---
CALL LIGHT ANSWERED. 1PA WITH FWW TO BSC FOR VOID AND BACK TO BED. pt INCONTIENT IN ATTENDS, CHANGED. CALL LIGHT IN REACH. LIGHTS OFF IN ROOM.
--- NOTE | 2019-11-05 00:08 | NUR ---
CALL LIGHT ANSWERED. IV PUMP ALARMING. IVF BAG CHANGED ORDERED. CALL LIGHT IN REACH. pt RESTING IN BED, NO REQUESTS AT THIS TIME.
--- NOTE | 2019-11-05 00:40 | NUR ---
pt assisted to bsc, call light in reach - + flatus - pt wants to sit for a while. alert and oriented.
--- NOTE | 2019-11-05 00:49 | NUR ---
CALL LIGHT ANSWERED. SS LIQUID BM NOTED IN COMMODE, MIXED W URINE. 1PA WITH FWW BACK TO BED. CALL LIGHT IN REACH. NO ADDITIONAL REQUESTS.
--- NOTE | 2019-11-05 03:33 | NUR ---
CALL LIGHT ANSWERED, pt STATES "I ALREADY WENT PEE". ATTENDS CHANGED, ADDITIONAL VOID WHILE CHANGING ATTENDS. NEW CHUX UNDER pt. DENIES ANY REQUESTS. IVF INFUSING WNL ORDERED. CALL LIGHT IN REACH.
--- NOTE | 2019-11-05 04:00 | NUR ---
pt up to bsc, used call light appropriately - changed attends inc. of urine. denies other needs
--- NOTE | 2019-11-05 04:42 | NUR ---
Report received from GARY Morel.
--- NOTE | 2019-11-05 05:00 | NUR ---
Patient incontinent of urine, up to BSC with FWW and 1PA. Patient steady on feet. New attends in place and chux pad put on bed. Patient returns to bed with FWW and 1PA. Warm blankets provided. Patient denies further needs, call light within reach.
--- NOTE | 2019-11-05 07:15 | NUR ---
REPORT TO THIS RN AND PT WITH TO COMMODE WITH WALKER AND RN HELP. PT BACK IN BED AND WARM BLACKETS GIVEN.
--- NOTE | 2019-11-05 09:30 | NUR ---
PT SITTING UP IN BED AND START COUGHING AND SMALL AMOUNT OF EMESIS NOTED, PT REPORTS NAUSEA. MEDICATION GIVEN. PT WORKING WITH PT.
--- NOTE | 2019-11-05 10:20 | NUR ---
Spoke with Lissette. She cont. to state she does not feel well. Complaint of fatigue and nausea.
--- NOTE | 2019-11-05 13:29 | NUR ---
PT BEEN UP TO CHAIR AND NOW BACK IN BED WITH WARM BLACKET IN PLACE. PT CONTINUES TO REPORT WEAKNESS AND BEING TIRED.
--- NOTE | 2019-11-05 14:00 | NUR ---
MD AT BEDSIDE WITH RN, EDUCATION GIVEN ON BLOOD ADMINISTRAION. PT UP TO BATHROOM WITH WALKER AND RN HELP. PT BACK TO BED CALL LIGHT GIVEN AND BED IN LOW.
--- NOTE | 2019-11-05 14:29 | NUR ---
PT LAYING IN BED ON L.SIDE. SHE MENTIONED SHE HAD A TOUGH NIGHT, BUT WAS PLEASED SHE WAS ABLE TO VISIT WITH HER ANITA. PT REQUESTED PRAYER AND REQUESTED I RETURN LATER.
--- NOTE | 2019-11-05 17:18 | NUR ---
Incontinent of large amount of liquid stool, light brown in color. Fitted sheet, draw sheet, gown and depends changed. Cinda care completed by this nurse. Return to bed.
--- NOTE | 2019-11-05 19:16 | NUR ---
pt RESTING IN BED, BLOOD INFUSION CLOSE TO COMPLETION. ASSISTED TO REPOSITION. REPORT RECEIVED FROM GARY VEGA. WHITEBOARD UPDATED. CALL LIGHT WITHIN REACH.
--- NOTE | 2019-11-05 19:40 | NUR ---
PT'S IV WAS BEEPING, IT IS NOW INFUSING FINE CALL LIGHT IS CLOSE.
--- NOTE | 2019-11-05 19:47 | NUR ---
PATIENT RESTING IN BED, CALL LIGHT IN REACH. RN AT BEDSIDE. PATIENT WASHED HANDS AND FACE WITH WARM WASH CLOTH. NO FURTHER NEEDS AT THIS TIME.
--- NOTE | 2019-11-05 19:48 | NUR ---
BLOOD TRANSFUSION COMPLETED. pt DENIES S/S OF INFUSION REACTION. STATED "I FEEL BETTER THAN I DID BEFORE THE BLOOD" VSS COMPLETED BY CAR BLOCKER POST INFUSION.
--- NOTE | 2019-11-05 20:21 | NUR ---
ASSESSMENT DONE. MEDICATIONS GIVEN (SEE MAR). pt REPORTED NAUSEA "IT HAS BEEN COMING AND GOING FOR A COUPLE HOURS" PRN GIVEN (SEE MAR). NO FURTHER REQUESTS AT THIS TIME. CALL LIGHT WITHIN REACH. pt SPEAKING ON PHONE.
--- NOTE | 2019-11-05 21:15 | NUR ---
PT'S IV PUMP WAS BEEPING. SHE DENIES FURTHER NEEDS AT THIS TIME. CALL LIGHT IS CLOSE.
--- NOTE | 2019-11-05 21:22 | NUR ---
ASSISTED PT TO BSC WITH FWW AND BACK TO BED. PT HAD SOME DRY HEAVING WHILE ON BSC BUT NO EMESIS. SHE REPORTS HEARTBURN WELL NOTIFIED PRIMARY RN. PT DENIES FURTHER NEEDS AT THIS TIME. CALL LIGHT IS CLOSE.
--- NOTE | 2019-11-05 21:33 | NUR ---
PT'S IV WAS BEEPING AND SHE WANTED HELP ADJUSTING HER GOWN. PT DENIES FURTHER NEEDS AT THIS TIME. CALL LIGHT IS CLOSE.
--- NOTE | 2019-11-05 21:44 | NUR ---
WRAPED A BLANKET AROUND PT'S ARM AND HELPED HER READJUST IN BED TO KEEP ARM STRAIGHT TO IV WILL STOP BEEPING. PT DENIES FURTHER NEEDS. CALL LIGHT IS CLOSE.
--- NOTE | 2019-11-05 23:43 | NUR ---
IN TO GIVE MEDICATIONS (SEE MAR). pt RESTING IN BED. NO REQUESTS AT THIS TIME. CALL LIGHT WITHIN REACH.
--- NOTE | 2019-11-06 00:38 | NUR ---
CALL LIGHT ON. pt UP TO BSC AND BACK TO BED. IV INFUSION COMPLETED. SL. NO FURTHER REQUESTS AT THIS TIME. CALL LIGHT WITHIN REACH.
--- NOTE | 2019-11-06 02:15 | NUR ---
HELPED PT TO THE BSC AND BACK TO BED WITH HER FWW. NEW ATTENDS PUT ON. BEDSIDE TABLE AND CALL LIGHT IN REACH.WARM BLANKET GIVEN .
--- NOTE | 2019-11-06 03:15 | NUR ---
HELPED PT TO THE BSC AND BACK TO BED WITH HER FWW. PT ASKING FOR SOMETHING TO SLEEP. I INFORMED HER RN JERONIMO. BEDSIDE TABLE AND CALL LIGHT IN REACH.
--- NOTE | 2019-11-06 03:16 | NUR ---
SPOKE WITH pt OFFERED SLEEP MASK AND EAR PLUGS. GIVEN TO pt BY RECOVERY MANAGER. CALL LIGHT WITHIN REACH.
--- NOTE | 2019-11-06 04:14 | NUR ---
PATIENT CALLED FOR ASSISTANCE WITH REPOSITIONING. PATIENT ABLE TO REPOSITION HERSELF INDEPENDENTLY WITH SUPERVISION. PATIENT CALL LIGHT IN REACH. NO FURTHER NEEDS AT THIS TIME.
--- NOTE | 2019-11-06 05:01 | NUR ---
CALL LIGHT ON. pt UP TO BSC AND BACK TO BED 1PA FWW. SMALL LIQUID BM, INCONT VOID IN DEPENDS. FRESH DEPENDS AND PAD IN PLACE. VITALS AND I&O RECORDED. NO FURTHER REQUESTS AT THIS TIME. WARM BLANKET PROVIDED. CALL LIGHT WITHIN REACH.
--- NOTE | 2019-11-06 05:08 | NUR ---
pt DID NOT REST MUCH DURING SHIFT. 1 UNIT PRBC FINISHED INFUSING. IV POSITIONAL, SL. UP MULTIPLE TIMES TO VOID, INCONT OF URINE. 2 LIQUID BMS, SMALL AMOUNT. 1PA FWW. POOR ORAL INTAKE. FORGETFUL AT TIMES. USES CALL LIGHT FREQUENTLY.
--- NOTE | 2019-11-06 06:30 | NUR ---
HELPED PT TO THE BSC AND BACK TO BED WITH HER FWW.BEDSIDE TABLE AND CALL LIGHT IN REACH. TWO WARM BLANKETS GIVEN AND HER HEATER TURNED UP PER PT REQUEST. SHE NEEDS NOTHING MORE AT THIS TIME. GARBAGES EMPTIED.
--- NOTE | 2019-11-06 08:34 | NUR ---
PATIENT CALLED-SITTING IN CHAIR, FINISHED WITH BREAKFAST, ATE 5% OF OATMEAL. BRUSHED TEETH, WASHED FACE AND HANDS CALL LIGHT IN REACH.
--- NOTE | 2019-11-06 08:49 | NUR ---
PA ASSIST WITH AGAPITO AVELAR FROM CHAIR TO BED W/FWW(PATIENT WAS VERY STAEDY,COULD BE 1PA. WAS INCONTINENT OF URINE, NEW BRIEF ON AND LINENS CHANGED. WARM BLANKET GIVEN, CALL LIGHT WITHIN REACH.
--- NOTE | 2019-11-06 09:10 | NUR ---
Attempted to see pt, she is getting on commode. Will return later.
--- NOTE | 2019-11-06 09:14 | NUR ---
PT UP TO THE CHAIR THIS AM, ATE BREAKFAST BUT NOT MUCH THIS AM. PT DOES NOT FEEL THAT SHE IS HAVING ANY DT'S AT THIS TIME. TALKED WITH HER ABOUT HER DRINKING AND FALLING AT HOME. PT HAS NEVER HAVE DT'S IN THE PAST.
--- NOTE | 2019-11-06 10:39 | NUR ---
PT GIVEN FLUIDS CRANBERRY JUICE WITH HER PHOS PKS. ENCOURAGE PT TO DRINK THEM. EXPLAINED THAT IT IS SUGARFREE JUICE AND NOT APPLE JUICE, I WOULD HOPE THAT IT DOES NOT BOTHER HER STOMACH.
--- NOTE | 2019-11-06 11:50 | NUR ---
In and spoke with pt. She is sitting in chair. Denies complaint. Information given on HH agencys in the area. Pt would like [facility]. Informed I will send the chart to them.
[2019-11-06] MEDS ORDERED: NITROFURANTOIN100 M1 PO (11:52)
[2019-11-06] MEDS ORDERED: FOLIC ACID1 MG PO (11:55)
[2019-11-06] MEDS ORDERED: VITAMIN D325 MC4 PO (11:55)
--- NOTE | 2019-11-06 12:04 | NUR ---
DR DUENAS INTO SEE PT AND DISCHARGED TO HOME. PT UP TO THE CHAIR FOR LUNCH, PT WANTED TO STAY IN BED. EXPLAINED THAT SHE IS GOING HOME AT 14:00 TODAY AND THAT SHE NEEDS TO EAT AND THEN WE WILL HEL HER ET DRESSED. OFFERED SHOWER AND SHAMPOO, PT REFUSED.
--- NOTE | 2019-11-06 12:23 | NUR ---
PT ALERT, ORIENTED AND SITTING IN CHAIR WITH GARY ESTRADA HELPING PT WITH LUNCH. PT SHARED SHE IS GOING HOME TODAY, WITH A BIG SMILE. GAVE BLESSING
--- NOTE | 2019-11-06 12:32 | NUR ---
PHARMACY INTO TALK WITH PT ABOUT HER MEDICATIONS AT THIS TIME. DISCHARGE INSTRUCTIONS GIVEN ALL QUESTIONS ANSWERED.
--- NOTE | 2019-11-06 12:50 | NUR ---
H&P, progress notes, DC summary PT/OT eval and notes, face sheet scanned to [facility].
--- NOTE | 2019-11-06 12:51 | NUR ---
PT BACK TO BED AFTER DISCHARGE INSTRUCTIONS GIVEN. ALL QUESTIONS ANSWERED AND PT IS WAITING ON HER HUSBANDS TO BRING HER SOME CLEAN CLOTHES. CALL LIGHT WITHIN REACH.
--- NOTE | 2019-11-06 14:00 | NUR ---
IN WITH PERSONAL CLOTHES. DISCHARGE VITALS AND I&OS DONE AND CHARTED.
== END 2019-11-06 13:40 | disposition home health service (06) | DRG 690 ==
LOC: ED 12:06 → MS 16:53
PROVIDERS: ADMIT Internal Medicine
PROC: 30233N1 Transfusion of Nonautologous Red Blood Cells into Peripheral Vein, Percutaneous Approach (ICD-10-PCS; principal; 2019-11-05)
DX: N30.00 Acute cystitis without hematuria (principal); N17.9 Acute kidney failure, unspecified; B95.2 Enterococcus as the cause of diseases classified elsewhere; E87.6 Hypokalemia; F10.20 Alcohol dependence, uncomplicated; E83.42 Hypomagnesemia; R29.6 Repeated falls; K70.0 Alcoholic fatty liver; E80.6 Other disorders of bilirubin metabolism; I10 Essential (primary) hypertension; K21.9 Gastro-esophageal reflux disease without esophagitis; Z20.828 Contact with and (suspected) exposure to other viral communicable diseases; F41.9 Anxiety disorder, unspecified; F32.9 Major depressive disorder, single episode, unspecified; D69.6 Thrombocytopenia, unspecified; D52.9 Folate deficiency anemia, unspecified; R79.89 Other specified abnormal findings of blood chemistry; E83.39 Other disorders of phosphorus metabolism; E86.0 Dehydration; E55.9 Vitamin D deficiency, unspecified; E02 Subclinical iodine-deficiency hypothyroidism; Z88.5 Allergy status to narcotic agent; Z88.0 Allergy status to penicillin; Z79.899 Other long term (current) drug therapy; Z79.1 Long term (current) use of non-steroidal anti-inflammatories (NSAID); Z88.8 Allergy status to other drugs, medicaments and biological substances; Z87.891 Personal history of nicotine dependence
CPT/HCPCS: 36415; 74177; 80048; 80053; 80069; 80076; 80500; 81001; 81256; 82140; 82248; 82306; 82607; 82728; 82746; 83010; 83540; 83615; 83690; 83735; 84100; 84425; 84439; 84443; 84466; 84484; 84630; 85014; 85018; 85025; 85027; 85610; 85730; 86850; 86900; 86901; 86920; 87077; 87088; 87186; 96361; 96375; 97116; 97162; 97165; 97530; 97535; 99285-25; J0696; J2405; J3475; J3480; J7030; J7040; J7060; J7121; P9016; Q9967; U0002

== ENCOUNTER 2019-11-07 02:53 | Inpatient (IN) | payer MEDICARE, OTHER ==
[~2019-11-07] VITALS: Ht 160 cm; Wt 87.1 kg
[~2019-11-07 02:53] MED LIST changes: +CIPROFLOXACIN500 MG PO; +FOLIC ACID1 MG PO; +NITROFURANTOIN100 M1 PO; +TYLENOL325 MG PO; +VITAMIN D325 MC4 PO
--- OUTSIDE RECORDS SUMMARY | 2019-11-07 04:30 | XMS ---
PreManage Notification: LIV BRIAN Security Flight Paramedic Events No recent Security Events currently on file CRITERIA MET - [facility] - 2 Visits in 30 Days CARE PROVIDERS There are no care providers on record at this time. Jo Ann has no Care Guidelines for this patient. Omar VISIT COUNT (12 MO.) [address] [facility] TOTAL 2 NOTE: Visits indicate total known visits. ED/C VISIT TRACKING (12 MO.) 11/07/2019 02:[address] [facility] [place] TYPE: Emergency COMPLAINT: - FALL 11/02/2019 12:07 [facility] [place] TYPE: Emergency COMPLAINT: - WEAKNESS, FALL INPATIENT VISIT TRACKING (12 MO.) 11/02/2019 16:53 [facility] [place] TYPE: Medical Surgical COMPLAINT: - UTI/IASEL [email or web address]
--- NOTE | 2019-11-07 05:21 | NUR ---
pt ARRIVED ON FLOOR. MULTIPLE STAFF ASSIST TO TRANSFER FROM STRETCHER TO BED. ASSESSMENT DONE. SCATTERED BRUISES. LEFT ANKLE IN BOOT. CAP REFILL AND PULSES OKAY. VITALS RECORDED. DAUGHTER AT BEDSIDE. CALL LIGHT WITHIN REACH.
--- NOTE | 2019-11-07 05:48 | NUR ---
PRN PAIN MED GIVEN FOR 6/10 PAIN (SEE MAR). pt REPORTED "I FELL WHEN I WAS WALKING INTO THE HOUSE BUT THEY GOT ME UP AND I DID OKAY UNTIL I GOT UP IN THE NIGHT TO GO TO THE BATHROOM. MY TRIED TO HELP ME BUT I JUST WENT DOWN." IVF INFUSING, SCHEDULED MED GIVEN (SEE MAR). pt RESTING IN BED. CALL LIGHT WITHIN REACH. ASSISTED WITH REPOSITIONING. NO FURTHER REQUESTS AT THIS TIME.
--- NOTE | 2019-11-07 06:04 | NUR ---
DR SAMAYOA CALLED TO CHECK ON PT AND ORDERED TYPE & CROSS FOR 2 UNITS, TORBC. HE WILL BE IN TO SEE HER IN ABOUT AN HOUR.
--- NOTE | 2019-11-07 06:52 | NUR ---
ROUNDED ON pt. RESTING IN BED, WOKE WHEN DOOR OPENED REPORTED SLEEPING. CALL LIGHT WITHIN REACH. DAUGHTER AT BEDSIDE.
--- NOTE | 2019-11-07 07:48 | NUR ---
ASSUMED CARE OF THIS PATIENT, REQUESTING PAIN MEDICATION FOR 8 PAIN L ANKLE, FENTANYL GIVEN, BRACE IN PLACE, ICE TO ANKLE, GOOD CMS TO TOES, PT IS ALERT AND ORIENTED, DAUGHTER SITTING IN RECLINER. DR ASMAYOA HAS JUST ARRIVED TO SEE PT.
--- NOTE | 2019-11-07 08:00 | NUR ---
PATIENT RESTING IN BED. DAUGHTER IN ROOM. BEDBATH DONE WITH BHAVANA BEFORE PATIENT GOES TO SURGERY. CATHETER CARE DONE. PATIENT USING A CLEAN GOWN. CALL LIGHT WITHIN REACH. NO OTHER NEEDS AT THIS TIME
--- NOTE | 2019-11-07 10:11 | NUR ---
PATIENT IN SURGERY. IN ROOM. I&O DONE.
--- NOTE | 2019-11-07 10:43 | NUR ---
11/07/19 1043 María Thomas 1022: PATIENT OPENS EYES AND NODS HEAD WHEN ASKED IF SHE IS IN PAIN. PATIENT FOLLOWS INSTRUCTIONS AND WIGGLES HER TOES, BILATERALLY. PATIENT FALLS QUICKLY BACK TO SLEEP WHEN UNSTIMULATED. ICE AND ELEVATION TO LEFT KNEE/ANKLE.
--- NOTE | 2019-11-07 11:05 | NUR ---
PT RETURNED TO ROOM FROM RECOVERY, AWAKE, ORIENTED, SLEEPY, DENIES ANY PAIN, CMS TO L FOOT INTACT, DRSG CDI, PICCO DRSG INTACT FLASHING GREEN, ICE TO ANKLE, CONT. PULSE OXIMETER PLACED. 93% ON RA, ENC TO DEEP BREATH INCREASED TO 98% ON RA. ORDERS NOTED, CALL LIGHT IN EASY REACH. DOE PATENT WITH YELLOW URINE.
--- NOTE | 2019-11-07 12:15 | NUR ---
PT STATES SHE IS COMFORTABLE, L LEG ELEVATED, CMS INTACT TO TOES, REPOSITIONED FOR COMFORT. CALL LIGHT IN EASY REACH.
--- NOTE | 2019-11-07 13:18 | NUR ---
PATIENT TO CT.
--- NOTE | 2019-11-07 13:35 | NUR ---
RETURNED FROM CT, PHYSICAL THERAPY HERE TO SEE PATIENT.
--- NOTE | 2019-11-07 14:11 | NUR ---
PATIENT RESTING IN BED. VITAL SIGNS AND I&O DONE. LOW OUTPUT. RN NOTIFIED. CALL LIGHT WITHIN REACH. NO OTHER NEEDS AT THIS TIME
--- NOTE | 2019-11-07 17:24 | NUR ---
Admin Nucynta 50mg po for reports of 7/10 left ankle pain.
--- NOTE | 2019-11-07 17:32 | NUR ---
PATIENT RESTING IN BED. VITAL SIGNS AND I&O DONE. CALL LIGHT WITHIN REACH. NO OTHER NEEDS AT THIS TIME
--- NOTE | 2019-11-07 17:45 | NUR ---
Pt a&ox4, on ra. Ice to LLE, bulky marlys wrap; CDI. CMS intact. SCD right leg. Metz intact. Tolerated a snack. NWB to LLE. Raymundo CDI; flashing green. Calls staff approp. Nucynta in use for pain.
--- NOTE | 2019-11-07 19:25 | NUR ---
SHIFT REPORT RECEIVED FROM SVETLANARIKRISTIN TOLBERT AT BEDSIDE. PT AWAKE AND RESTING IN BED, SON IN ROOM. SHIMA DRESSING TO LLE, GREEN LIGHT FLASHING. SCANT SEROSANGUINEOUS SHADOWING NOTED TO BOTH SHIMA DRESSING AND DRESSING NEAR ANKLE. WILL MONITOR. LLE ALSO ELEVATED, WITH TRUE WRAP IN PLACE. PT DENIES NEEDS OR CONCERNS. CALL LIGHT IN REACH.
--- NOTE | 2019-11-07 20:05 | OR ---
[facility] [address] [place] [address] Signed DATE OF OPERATION: 11/07/2019 SURGEON: Lee Stringer MD PREOPERATIVE DIAGNOSIS: Displaced left tib-fib fracture. POSTOPERATIVE DIAGNOSIS: Displaced left tib-fib fracture. PROCEDURE PERFORMED: Open reduction, IM rodding, left tibia. HYDROELECTRIC PRODUCTION TECHNICIAN: Gavi Perez PA-C. Gavi was present and critical for all portions of procedure. ANESTHESIA: General. ESTIMATED BLOOD LOSS: 150 mL. TOURNIQUET: No tourniquet. IMPLANTS: Synthes tibial Expert ramone, 11 x 315 with two proximal locking screws and four distal locking screws. BRIEF HISTORY: Lissette is a 74-year-old female, who suffered a ground-level fall about 3 o'clock in the morning, was transported to the Emergency Department with tibial deformity. She was x-rayed and found to have a distal tibia fracture as 100% displaced. This was not an open fracture. Risks, benefits, and alternatives were discussed and she elected to proceed after she was admitted to my service. DESCRIPTION OF PROCEDURE: Once consent was obtained, she was taken to the operating room after adequate anesthesia. She was placed on the operating table. All downside pressure points well Electronically Signed By: LEE STRINGER MD 11/07/192004 PATIENT NAME: LISSETTE BRIAN OPERATIVE REPORT DATE OF : 47 REPORT #: [id number] PHYSICIAN: LEE STRINGER MD PCP: ANN MARIE RABAGO MD REPORT IS CONFIDENTIAL AND NOT TO BE RELEASED WITHOUT AUTHORIZATION [facility] [address] [place], [place] [address] Signed padded. The left lower extremity was prepped and draped in a standard sterile fashion. The C-arm was then brought in and the fracture was fairly easy to reduce, but horribly unstable. We then introduced a percutaneous tenaculum to hold the fracture reduced. Once this was accomplished, and a little bit of traction was applied by Ms. Perez. The fracture was well maintained. The proximal tibia was then approached through a 2-inch incision along the medial parapatellar line. This was carried through skin and subcutaneous tissue. The curved awl was then introduced to the anterior medial tibia in a center position and was introduced into the tibia. This was followed by the ball-tipped guide ramone, which was advanced down the tibia into a center-center position distally. The tibia was then sequentially reamed from 8.5 up to 11.5. The 11 ramone was then selected and measured to a 315. The 315 ramone was then irrigated, introduced over the guide ramone until it was well seated at the physeal scar distally. The guide ramone was then removed. The fracture was again being held with the tenaculum. Four distal interlocking screws were placed percutaneously using a perfect circles technique. Four screws were used due to the soft density of the bone. Two screws were placed proximally, one in the dynamic and one in the static holes. The wounds were all copiously irrigated. Final radiographs showed anatomic reduction and good placement of the screws. The wounds were cleansed and closed with 2-0 Monocryl, followed by tanvir. The wounds were dressed with Aticoat, SHIMA over the big wound, and Sg wrap. She tolerated the procedure well. All sponge, needle, and instrument counts were correct. Lee Stringer MD BA/SENAITL /[id number] Copies: ~ Electronically Signed By: LEE STRINGER MD 11/07/19 2005 PATIENT NAME: LISSETTE BRIAN OPERATIVE REPORT DATE OF : 47 REPORT #: [id number] PHYSICIAN: LEE STRINGER MD PCP: ANN MARIE RABAGO MD REPORT IS CONFIDENTIAL AND NOT TO BE RELEASED WITHOUT AUTHORIZATION
--- NOTE | 2019-11-07 20:22 | NUR ---
SON JULIANNA LEAVING FOR THE EVENING, REQUESTED THAT HE OR HIS SISTER ROBERTO BE INCLUDED IN ALL DISCHARGE PLANNING DECISIONS. SPOKE WITH pt ALONE. pt STATED "YES, PLEASE HAVE THEM MAKE ANY DECISIONS ABOUT MY DISCHARGE. ROBERTO CAN SIGN FOR ME TOO." PER JULIANNA MEJIA LIVES IN [facility] AND SHOULD BE THE PRIMARY CONTACT, HE WOULD LIKE TO BE PART OF ANY CALLS. DAUGHTER ROBERTO, PHONE NUMBER [phone]. SON JULIANNA, PHONE NUMBER [phone].
--- NOTE | 2019-11-07 20:46 | NUR ---
PER PT REQUEST I GAVE HER THE REMOTE THAT WAS ACROSS THE ROOM. FRESH ICE WATER GIVEN WELL. SHE NEEDS NOTHING MORE AT THIS TIME.
--- NOTE | 2019-11-07 21:53 | NUR ---
VITALS AND I &OS DONE AND CHARTED. INFORMED RN MCKAYLA OF LOW OUTPUT. 25ML BEDSIDE TABLE AND CALL LIGHT IN REACH. PT NEEDS NOTHING MORE AT THIS TIME.
--- NOTE | 2019-11-07 22:30 | NUR ---
ASSESSMENT COMPLETE, SCHEDULED MEDS ALSO GIVEN ALONG WITH PRN PAIN PILL FOR 4/10 PAIN IN LLE (SEE EMAR). SHIMA DRESSING INTACT, GREEN LIGHT FLASHING. MEDIAL DRESSING BELOW SHIMA ALSO INTACT. DRESSING TO ANKLE FULLY SATURATED, SEROSANGUINEOUS IN COLOR, SMALL AMOUNT LEAKING TO ABD AND PILLOW CASE. MANUFACTURING SUPERVISOR 2ND SHIFT MANDY IN ROOM TO ALSO ASSESS. WILL CALL DR SAMAYOA TO NOTIFY ALONG WITH TRENDING LOW UO. CAP REILL WNL, COOL TO THE TOUCH. BILATERAL PEDAL PULSES NOTED. SCD'S, BRUCE HOSE, AND HEEL PROTECTOR TO RLE. IV FLUIDS INFUSING, SITE LEAKING. WITH HELP FROM MANUFACTURING SUPERVISOR 2ND SHIFT MANDY, SITE CLEANED AND REDRESSED. BRISK BLOOD RETURN NOTED, REDRESSED WITH OPSITE. CPOX IN PLACE, VSS. NO FURTHER NEEDS OR CONCERNS. CALL LIGHT IN REACH.
--- NOTE | 2019-11-07 23:23 | NUR ---
HELPED GARY BLOCK REPOSITION PT IN BED TO HER RIGHT SIDE. EMPTIED DOE AGAIN. 25ML IN FORMED HER RN.
--- NOTE | 2019-11-07 23:31 | NUR ---
PT HAS HAD 50MLS UO FROM DOE SINCE START OF SHIFT. ALSO, MOST DISTAL DRESSING TO ANKLE FULLY SATURATED, SMALL AMOUNT ON ABD PAD AND PILLOW CASE. PER DR SAMAYOA, OKAY TO REINFORCE WITH ANOTHER ABD PAD AND MONITOR. ALSO NEW ORDERS READ BACK TO CONTINUE LR FLUIDS AT 125MLS/HR CONTINUOUS. PER DR SAMAYOA, NO NEED TO CALL BACK FOR LOW UO FOR REMAINING OF SHIFT.
--- NOTE | 2019-11-08 00:50 | NUR ---
ROUNDED ON PT, DOE CATHETER EMPTIED. 1300MLS OUTPUT NOTED, DARK YELLOW IN COLOR. PRN PAIN PILL GIVEN FOR 6/10 PAIN IN LLE PER PT REQUEST (SEE EMAR). LLE DRESSING C/D/I. NO DRAINAGE NOTED ON CHUCKS. GREEN LIGHT TO SHIMA DRESSING NOTED. CALL LIGHT IN REACH. BED ALARM ALSO ON. WARM BLANKET PROVIDED.
--- NOTE | 2019-11-08 01:00 | NUR ---
BED ALARM WENT OFF, I WENT IN AND TURNED IT OFF. PT WAS MOVING AROUND IN BED. I REPOSITIONED HER TO HER LEFT SIDE WITH A PILLOW. BED ALARM SET. BEDSIDE TABLE AND CALL LIGHT IN REACH.
--- NOTE | 2019-11-08 01:14 | NUR ---
PT CALLS FOR NURSE. PT SAYS SHE IS CONFUSED AND UNCOMFORTABLE. PT REORIENTED AND REPOSITIONED. ICE WATER PROVIDED. NO OTHER NEEDS. CALL LIGHT IN REACH.
--- NOTE | 2019-11-08 02:18 | NUR ---
VITALS AND I&OS DONE AND CHARTED. BEDSIDE TABLE AND CALL LIGHT IN REACH.
--- NOTE | 2019-11-08 03:00 | NUR ---
ASSESSMENT COMPLETE. PT ORIENTED, BUT FORGETFUL AND AT TIMES REQUIRES QUESTIONS REPEATED. SHIMA DRESSING AND DRESSING BELOW SHIMA INTACT, GREEN OKAY LIGHT FLASHING. NO NEW SHADOWING OR DRAINAGE. WITH HELP FROM CONSTRUCTION CONTROLLER MANDY, ABD PADS TO DISTAL DRESSING CHANGED AND TRUE WRAP REDRESSED. ORIGINAL DRESSING REMAINS IN PLACE, FULLY SATURATED, SEROSANGUINEOUS IN COLOR, MODERATE AMOUNT ON ORIGINAL ABD PADS. WILL MONITOR. CMS INTACT, BILATERAL PEDAL PULSES NOTED. LLE REMAINS ELEVATED ON PILLOW FOR COMFORT. IV FLUIDS INFUSING, SITE WNL. SITE TO RIGHT AC EMS START. NEW IV PLACED TO LEFT WRIST. TWO ATTEMPTS, 22G IN PLACE AND SALINE LOCKED. WILL WAIT FOR MORNING LABS BEFORE PULLING EMS START AND NOTIFY UPCOMING DAYSHIFT RN.
--- NOTE | 2019-11-08 06:55 | NUR ---
VITALS AND I&OS DONE AND CHARTED. GARBAGES EMPTIED. BEDSIDE TABLE AND CALL LIGHT IN REACH.
--- NOTE | 2019-11-08 07:00 | NUR ---
scheduled ancef given (see emar). dressing to lle c/d/i. no shadowing or drainage noted. call light in reach, pt denies further needs.
--- NOTE | 2019-11-08 07:31 | NUR ---
A/OX4, FORGETFUL AT TIMES. BED ALARM ON. VSS, PAIN CONTROLLED WITH PRN PAIN MEDICATION. REGULAR DIET, TOLERATING WELL. NO NAUSEA REPORTED. LOW UO AT START OF SHIFT, MD AWARE. DOE CATHETER REMAINS IN PLACE.IV FLUIDS AT 125MLS/HR. ABD PADS REPLACED DURING SHIFT AND REINFORCED WITH NEW TRUE WRAP. DISTAL DRESSING FULLY SATURATED, SEROSANGUINEOUS IN COLOR. SHIMA DRESSING INTACT, GREEN OKAY LIGHT FLASHING. AM LAB RESULTS: HEMOGLOBIN-7.3 AND SODIUM 128.
--- NOTE | 2019-11-08 08:42 | NUR ---
TRANSFUESING 2 UNITS OF PRBC'S TODAY. UNIT 1 STARTED AT THIS TIME. PT SITTING UP IN BED FEEDING SELF BKF. AT THE BEDSIDE. PT IS FORGETFULL TODAY. BUT DOES REMENBER TITLE PROCESSOR. BUT IS HAVING ISSUES CARRING ON A CONVERSVATION WITH .
--- NOTE | 2019-11-08 09:18 | NUR ---
PT FEEDING SELF, SHE PUSHES HER FOOD AROUND AND DOES NOT EAT MUCH. AT THE BEDSIDE.
--- NOTE | 2019-11-08 09:36 | NUR ---
PATIENT SITTING UP IN BED, FINISHED WITH BREAKFAST,ATE 5%. REQUESTED ICE CHIPS AND FRESH WATER. IN ROOM. PATIEN VERY CONFUSED THIS MORNING, TALKING ABOUT SEVERAL DIFFERENT TOPICS AT ONCE. RN AWARE. APRIL MONACO INREABROOK KIM EMPTIED, VITALS AND I&OS DONE AND CHATED.
--- NOTE | 2019-11-08 09:40 | NUR ---
BLOOD CONTIOUES TO INFUSE AT THIS TIME, PT IS CONFUSED BUT TRIES TO TALK ABOUT SOMETHING. IS HARD OF HEARING AND IT APPEARS THAT THIS DOES NOT BOTHER HIM.
--- NOTE | 2019-11-08 11:18 | NUR ---
UNIT 1 OF 2 COMPLETED AT THIS TIME. PT SON-IN-LAW PRESENT. DISCUSSED PT CONFUSSION. ALSO GAVE HIME SOME NUMBERS REGARDING HOME CARE HELP.
--- NOTE | 2019-11-08 11:34 | EKG ---
[facility] [address] [place] [address] Signed Normal sinus rhythm Low voltage QRS Borderline ECG When compared with ECG of 12-MAR-2019 11:11, Inverted T waves have replaced nonspecific T wave abnormality in Inferior leads Confirmed by ANDREW DUENAS MD ([id number]) on 11/08/2019 11:33:59 AM Electronically Signed By: ANDREW DUENAS MD 11/08/19 1134 PATIENT NAME: ROCLIV VY Electrocardiogram DATE OF : 47 PHYSICIAN: ANDREW DUENAS MD REPORT #: [id number] REPORT IS CONFIDENTIAL AND NOT TO BE RELEASED WITHOUT AUTHORIZATION
--- NOTE | 2019-11-08 11:40 | NUR ---
UNIT 2 OF 2 INFUSING AT THIS TIME, PT CONFUSED AND REPOSITIONED AT THIS TIME. REPORT GIVEN TO DAVID VEGA.
--- NOTE | 2019-11-08 11:47 | NUR ---
BEDSIDE REPORT RECEIVED PT SITTING UP IN BED BLOOD TRANSFUSING. ASSIST PT TO REPOSITION, SHE DENIES PAIN OR NEEDS OF AT THIS TIME
--- NOTE | 2019-11-08 13:40 | NUR ---
PT WAS UNABLE TO SELF FEED NOON MEAL LACK OF COORDINATION. THIS WOODWORKER HELPER PROVIDED ASSIST. P/T IN TO WORK WITH PT, ASSIST TO SIT ON EDGE OF BED, LINENS CHANGED AT THAT TIME. PT REPOSITIONED IN BED, SON IN TO VISIT.
--- NOTE | 2019-11-08 14:07 | NUR ---
BLOOD TRANSFUSION COMPLETED SON REMAINS IN THE ROOM. PT RESTING EYES CLOSED RESPONDS TO VOICE AGREES SHE IS COMFORTABLE.
--- NOTE | 2019-11-08 14:43 | NUR ---
PATIENT RESTING WITH EYES CLOSED. WOKE FOR VITALS. VITALS AND I&OS DONE. DOE EMPTIED. URINE CHARTED REGULAR VOID VS DOE THERE SEEMS TO BE A GLITCH IN SCREEN, NO PLACE TO CHART DOE OUTPUT. RN VIRIDIANA AWARE CALL LIGHT IN REACH, PATIENT BACK TO SLEEP
--- NOTE | 2019-11-08 16:31 | NUR ---
PT ASSISTED TO REPOSITION IN BED, IS PRESENT AT THIS TIME. FRESH H20 AND CALL LIGHT IN REACH
--- NOTE | 2019-11-08 17:39 | NUR ---
PT MUCH MORE CLEAR THIS EVENING ABLE TO SELF FEED, MORE TALKATIVE MAKING SENSE. DAUGHTER IS PRESENT AT BEDSIDE. PT CONTINUES TO DENY PAIN OR DISCOMFORTS, STATES SHE IS MORE COMFORTABLE RIGHT NOW THAN SHE'S BEEN ALL DAY
--- NOTE | 2019-11-08 19:10 | NUR ---
SHIFT REPORT RECEIVED FROM TUNDE KINGSTON AT BEDSIDE. PT AWAKE AND RESTING IN BED. IV FLUIDS INFUSING, SITE WNL. PT APPEARS COMFORTABLE, NO DISTRESS NOTED. SHIMA DRESSING AND DRESSING DISTAL TO SHIMA INTACT, GREEN OKAY LIGHT FLASHING. SCANT SEROSANGUINEOUS SHADOWING NOTED. SHADOWING NOTED TO TO HEEL AREA SMALL TO MODERATE AMOUNT TO PILLOW CASE. CHUCKS PLACED UNDER LLE TO MONITOR DRAINAGE. PT DENIES ADDITIONAL NEEDS, CALL LIGHT IN REACH.
--- NOTE | 2019-11-08 20:00 | NUR ---
ASSESSMENT COMPLETE, SCHEDULED MEDS GIVEN (SEE EMAR). VSS, PT A/O TO SELF, PLACE, AND EVENTS. REORIENTED TO DATE AND POC. PT REPORTS BEING TOLD SHE WAS GOING TO BE DISCHARGED TODAY, PT EXPLAINED POC AND NEED FOR REHAB PLACEMENT. PT VERBALIZING UNDERSTANDING, BED ALARM ON TO ENSURE SAFETY. COMPLETE BED LINEN AND BED BATH COMPLETE WITH HELP FROM PODIATRIC FOOT AND ANKLE SPECIALIST MANDY. HAIR ALSO WASHED. BACKSIDE INTACT, NO REDDNESS NOTED. SMALL BRUISE R/T BLOCK IN OR. ABD REPLACED AND TRUE WRAP REDRESSED DUE TO LEAKING AT SHIFT CHANGE. SHIMA DRESSING INTACT, GREEN OKAY LIGHT FLASHING. DISTAL DRESSING REMAINS SATURATED WITH SEROSANGUINEOUS. WILL MONITOR. IV SITE TO RIGHT AC LEAKING, REMOVED. CATHETER TIP INTACT AND REINFORCED WITH 2X2 AND COBAN. NO FURTHER NEEDS, CALL LIGHT IN REACH.
--- NOTE | 2019-11-08 22:45 | NUR ---
PT RESTING IN BED, ASSISTED WITH REPOSITIONING AND AGAIN REMINDED PT THAT POC IS TO STAY IN HOSPITAL UNTIL FURTHER NOTICE. PT VERBALIZES UNDERSTANDING, STATES, "OKAY, THEN I'LL GET READY FOR BED THEN". IV FLUIDS INFUSING, SITE REMAINS WNL. DRESSING TO LLE C/D/I, NO SHADOWING, DRAINAGE, OR LEAKING NOTED TO TRUE WRAP. CALL LIGHT IN REACH, BED ALARM IN PLACE.
--- NOTE | 2019-11-09 02:10 | NUR ---
PT RESTING IN BED WITH EYES CLOSED. RR EVEN AND UNLABORED, NO DISTRESS NOTED. CALL LIGHT IN REACH.
--- NOTE | 2019-11-09 03:48 | NUR ---
ASSESSMENT COMPLETE, NO NEW CHANGES OR CONCERNS. PT PLACED ON BEDPAN AND HAD BM X1, LIQUID. BED LINEN CHANGE AND PT REPOSITIONED IN BED. DRESSING TO LLE REMAINS C/D/I. BILATERAL PEDAL PULSES NOTED. SHIMA DRESSING ALSO INTACT, GREEN OKAY LIGHT FLASHING. SCD AND BRUCE HOSE TO LLE. NO FURTHER NEEDS, CALL LIGHT IN REACH. BED ALARM ON.
--- NOTE | 2019-11-09 04:49 | NUR ---
PT HAD A GOOD NIGHT OVERALL. INITIALLY CONFUSED AT START OF SHIFT, THINKING SHE WAS GOING HOME. REORIENTATION PROVIDED AND PT COMPLAINT WITH CARE THROUGHOUT SHIFT. A/O, BUT FORGETFUL AT TIMES. VSS, BED ALARM ON TO ENSURE SAFETY. REGULAR DIET, TOLERATING WELL. NO NAUSEA REPORTED. MILK OF MAG D/C AFTER PT HAD LIQUID BM X1. VOIDING QS, DOE CATHETER IN PLACE. ALL DRESSINGS INTACT, GREEN SHIMA LIGHT FLASHING. ABD PADS REPLACED AT START OF SHIFT, HAS REMAINED C/D/I SINCE. CMS INTACT. BRUCE CHATTERJEE AND SCD TO RLE.
--- NOTE | 2019-11-09 05:37 | NUR ---
VS AND I&O'S COMPLETE, LAB IN ROOM TO COLLECT BLOOD DRAW. IV FLUIDS INFUSING, SITE WNL. NO ADDITIONAL NEEDS VERBALIZED, CALL LIGHT IN REACH.
--- NOTE | 2019-11-09 06:27 | NUR ---
SPOKE TO DR SAMAYOA REGARDING PT'S INTAKE AND OUTPUT. VERBAL ORDER READ BACK TO PULL DOE AND DISCONTINUE IV FLUIDS. DOE REMOVED AT THIS TIME.
--- NOTE | 2019-11-09 06:58 | NUR ---
PT SALINE LOCKED AT THIS TIME, SITE WNL AND FLUSHES EASILY. NO ADDITIONAL NEEDS VERBALIZED. CALL LIGHT IN REACH.
--- NOTE | 2019-11-09 07:39 | NUR ---
Pt resting in bed, respirations even and non labored. Pt has no notable distress. Pesonal supplies and call light within reach.
--- NOTE | 2019-11-09 09:18 | NUR ---
PATIENT SITTING UP IN BED. IN ROOM. VITAL SIGNS AND I&O DONE. CALL LIGHT WITHIN REACH. NO OTHER NEEDS AT THIS TIME
--- NOTE | 2019-11-09 09:35 | NUR ---
TRIED TO ADMINISTER ORDERED PILLS. PT SITTING UP STRAIGHT IN BED WITH CHIN TUCKED, STILL CHOKED ON PILL. ALMOST CALLED A RAPID RESPONSE BUT PT WAS FINALLY ABLE TO CLEAR IT. RESTED FOR A FEW MINUTES AND THEN ASSESSED AGAIN. ABLE TO SWALLOW WATER WO DIFFICULTY. PT STATES THAT SOMETIMES SHE HAS THAT PROBLEM AT HOME AND ASKED IF SHE COULD JUST TAKE THEM CRUSHED IN APPLESAUCE. HAPPY TO COMPLY. PT SWALLOWED WO DIFFICUL.TY
--- NOTE | 2019-11-09 10:10 | NUR ---
Nucynta 50mg po admin for reports of 7/10 LLE pain.
--- NOTE | 2019-11-09 10:45 | NUR ---
CALL LIGHT ANSWERED. PATIENT RESTING IN BED. OCCUPATIONAL THERAPIST IN ROOM. PATIENT INCONTINENT OF URINE. PATIENT USES THE BEDPAN. PERICARE PERFORMED. TWO PERSON ASSISTING. PATIENT USING A CLEAN ATTENDS. CALL LIGHT WITHIN REACH. NO OTHER NEEDS AT THIS TIME
--- NOTE | 2019-11-09 11:42 | NUR ---
Pt resting in bed, eyes closed, resp even and non labored. Personal supplies and call light within reach.
--- NOTE | 2019-11-09 13:00 | NUR ---
Spoke with Jose. She states she lives with her spouse at home and uses a walker, cane, shower chair, and grab bars. Fell following dc from the hospital last week. Pt is oriented x 1 and frequently changes subjects during the conversation, but is not aware she does so. She is willing to go to a SNF on dc and would like to stay in [place]. Chart faxed to T. Discussed with pt report of alcohol use and she feels she and her spouse need help. D[place] [facility] [place] like [place] speak with them. Called and spoke with Francisca and she will visit pt at 6 pm this evening when she finishes class.
--- NOTE | 2019-11-09 13:21 | NUR ---
PT DROWSY, APPEARS TO BE RATHER DISSAPPOINTED. STAYED FOR A MOMENT, PT VERY DIACOURAGED AT THE TURN OF EVENTS IN HER LIFE. HAD PRAYER WITH PT GAVE HER ENCOURAGEMENT
--- NOTE | 2019-11-09 13:46 | NUR ---
PATIENT RESTING IN BED. VITAL SIGNS AND I&O DONE. CALL LIGHT WITHIN REACH. NO OTHER NEEDS AT THIS TIME
--- NOTE | 2019-11-09 14:32 | NUR ---
Pt working with pt at this time.
--- NOTE | 2019-11-09 14:48 | NUR ---
PATIENT RESTING IN BED. PATIENT REFUSED TO HAVE A BEDBATH TODAY BECAUSE SHE DOES NOT FEEL GOOD. CALL LIGHT WITHIN REACH. NO OTHER NEEDS AT THIS TIME
--- NOTE | 2019-11-09 14:50 | NUR ---
Nucynta 50mg po admin for reports of 7/10 LLE pain.
--- NOTE | 2019-11-09 15:42 | NUR ---
Pt updated Peer to Peer will visit at 6 pm tonight and possible admission to [facility].
--- NOTE | 2019-11-09 16:17 | NUR ---
Per Dr. Stringer pt does not need to use walking boot.
--- NOTE | 2019-11-09 17:48 | NUR ---
Pt a&ox4, on ra. Nucynta po for pain. Pt worked with pt in bed as she was too weak to ambulate. Tolerating regular diet. Brief in place-incontinent. Calls staff appropriately.
--- NOTE | 2019-11-09 17:58 | NUR ---
PATIENT SITTING UP IN BED. VITAL SIGNS AND I&O DONE. CALL LIGHT WITHIN REACH. NO OTHER NEEDS AT THIS TIME
--- NOTE | 2019-11-09 19:20 | NUR ---
REPORT FROM DAY SHIFT RN. PT LYING IN BED, ALERT AND ORIENTED. DRESSING TO POSTERIOR LLE REINFORCED BY DAY SHIFT RN D/T SEROSANG DRAINAGE. PT REPOSITIONED IN BED. DENIES NEEDS. WHITE BOARD UPDATED. CALL LIGHT IN REACH.
--- NOTE | 2019-11-09 19:23 | NUR ---
Posterior dressing reinforced with abd. Sg wrap has sarosang leakage noted to posterior dressing.
--- NOTE | 2019-11-09 21:56 | NUR ---
THIS HOOP FLARING MACHINE OPERATOR AND STREET LIGHT WIRER CLEANED/WIPED PATIENT. CHANGED BED LINEN AND ATTENDS. V/S AND I&O TAKEN AND CHARTED. CALL LIGHT WITHIN REACH.
--- NOTE | 2019-11-09 22:10 | NUR ---
EVENING ASSESSMENT COMPLETE. SCHEDULED MEDS CRUSHED AND GIVEN IN PUDDING PT REPORTS SHE WAS HAVING ISSUES SWALLOWING LARGER PILLS. PRN GIVEN FOR LLE PAIN. FRESH ICE/SCD'S/TEDS/HP IN PLACE. NO NEW DRAINAGE NOTED TO LLE DRESSING. PT WITHOUT S/SX OF ETOH WITHDRAWAL. BED ALARM ON FOR SAFETY. CALL LIGHT IN REACH.
--- NOTE | 2019-11-10 00:50 | NUR ---
PT RESTING IN BED WITH EYES CLOSED, NAD.
--- NOTE | 2019-11-10 02:53 | NUR ---
CALL LIGHT ANSWERED. PT INCONTINENT OF URINE. ATTENDS CHANGED WITH 2PA. NAHID CARE DONE BY STAFF. REPOSITIONED IN BED WITH PILLOWS. PT DENIES PAIN. CALL LIGHT IN REACH.
--- NOTE | 2019-11-10 05:03 | NUR ---
PT RESTING IN BED WITH EYES CLOSED. RR EVEN AND UNLABORED, NAD. CALL LIGHT WITHIN REACH.
--- NOTE | 2019-11-10 06:15 | NUR ---
PT INCONTINENT OF URINE. ATTENDS CHANGED WITH 2PA. NAHID CARE DONE BY STAFF. VS AND I&O COMPLETE. PT DENIES PRN FOR PAIN AT THIS TIME. DRESSING TO LLE REINFORCED WITH ABD AND TRUE WRAP DUE TO SEROSANG DRAINAGE LEAKING THROUGH. FRESH ICE APPLIED. PT DENIES FURTHER NEEDS. CALL LIGHT IN REACH.
--- NOTE | 2019-11-10 06:55 | NUR ---
DR. SAMAYOA NOTIFIED ABOUT SATURATED LLE DRESSING. NEW TELEPHONE ORDERS RECEIVED VERIFIED WITH READ BACK METHOD.
--- NOTE | 2019-11-10 07:49 | NUR ---
0700: Report recieved from Merry VEGA. Pt resting in bed with her bed alarm on. She denies any problems other than feeling tired at this time. Call pardo within reach.
--- NOTE | 2019-11-10 07:50 | NUR ---
Spoke with Dr. Stringer and updated I am working on admit for patient to [facility]. Asked if he is ready for her to dc and he states she will need 1-[address] Whitfield notified.
--- NOTE | 2019-11-10 08:08 | NUR ---
DR SAMAYOA TO THE ROOM CHECKING IN ON THE PT AT THIS TIME. PT WAS ATTEMPTING TO SWALLOW A PILL AND DID COUGH AND SPIT IT UP. SHE APPEARS TO BE IN NO DISTRESS AT THIS TIME.
--- NOTE | 2019-11-10 08:13 | NUR ---
PATIENT RESTING IN BED. PATIENT INCONTINENT OF URINE. PERICARE PERFORMED. BEDBATH DONE. ATTENDS CHANGED. TWO PERSON ASSISTING. PATIENT USING A CLEAN GOWN. CALL LIGHT WITHIN REACH. NO OTHER NEEDS AT THIS TIME
--- NOTE | 2019-11-10 09:34 | NUR ---
PATIENT RESTING IN BED. IN ROOM. VITAL SIGNS AND I&O DONE. HIGH BLOOD PRESSURE. RN NOTIFIED. CALL LIGHT WITHIN REACH. NO OTHER NEEDS AT THIS TIME
--- NOTE | 2019-11-10 09:41 | NUR ---
PHYSICAL THERAPY CHECKED WITH THIS RN TO IF PT HAD PAIN MEDICATIONS THIS AM. THIS RN INTO ASSESS PATIENT PAIN, SHE SAID "ITS GOOD" ASSESSED VIA NUMBER SCALE. PT REPORTS SHE IS AT A 2/10. ASKED PT IF SHE FEELS SHE NEEDS PAIN MEDICATION PRIOR TO WORKING WITH PHYSICAL THERAPY SHE SAID "LETS TRY IT WITHOUT"
--- NOTE | 2019-11-10 10:21 | NUR ---
The pt worked with Janny the physical therapist. Janny, myself and another RN assisted the pt to her feet and she became very scared stating she is fearful of falling and that her pain increased in her left ankle to an 8/10 from a 2. Pt states she can't do anymore at this time. Pt states she will try again after medication for pain. Pt medicated and Janny states she will come back and work with the pt again after pain medications.
--- NOTE | 2019-11-10 10:44 | NUR ---
LEFT ANKLE DRESSING CHANGED WITH AN ACTICOTE, ABD AND COVERED WITH TRUE WRAP ORDERED. THE INCISION SITES APPEAR HEALTHY WITHOUT ANY S/S OF INFECTION NOTED. THERE IS A NOTED MODERATE AMOUNT OF SEROUS DRAIANGE WITHOUT ANY NOTED SMELL. [id number] REMAIN IN PLACE TO THE NOTED 3 SITES. PT TOLERATED THE DRESSING CHANGE WELL. ICE REPLACED AT THIS TIME, SCD IS ON AND RUNNING ON THE RIGHT AND A BRUCE HOSE IS IN PLACE ON THE RIGHT.
--- NOTE | 2019-11-10 10:45 | NUR ---
Spoke with Jem. She states she is feeling better and clearer in her mind. States she was able to see Peer to Peer support last. She scheduled to follow up with Peer to Peer diana, thinks she may reschedule.
--- NOTE | 2019-11-10 11:41 | NUR ---
Pt attempted to stand again with the help of physical therapy, the PADDLE DYEING MACHINE OPERATOR and myself. Pt was able to stand briefly with much help for a very short time but was unable to pivot and she states she is going to fall and she sat back down on the bed. Jem states her pain was under good control this time only reaching about a 3/10 but that she is just too weak to do any more. Physical therapy states she will come back again this afternoon to work with her again. Pt had been incont of urine and was cleaned and changed at this time. Call pardo within reach, bed alarm on, scd on and running, ice in place and gabrielle hose on the right leg. Jem denies any other needs at this time.
--- NOTE | 2019-11-10 11:44 | NUR ---
PATIENT SITTING UP ON THE EDGE OF THE BED. RN AND PHYSICAL THERAPIST IN ROOM. PATIENT STANDS UP. PATIENT USES WALKER. THREE PERSON ASSISTING. PATIENT BACKS TO BED. PATIENT'S ATTENDS CHANGED. TWO PERSON ASSISTING. CALL LIGHT WITHIN REACH. NO OTHER NEEDS AT THIS TIME
--- NOTE | 2019-11-10 12:13 | NUR ---
PT ASSISTED WITH OCCUPATIONAL THERAPY TO SITTING AT SIDE OF BED FOR LUNCH. STAFF REPORTS PT IS MORE CLEAR OF MIND TODAY THAN YESTURDAY. PT ALSO REPORTS SHE CAN NOT REMEMBER ANYTHING FROM YESTURDAY, WHEN ASKED IF SHE REMEMBERED WORKING WITH PHYSICAL THERAPY YESTURDAY.
--- NOTE | 2019-11-10 14:04 | NUR ---
PT LAYING IN BED, TV OFF. PT IS OBVIOUSLY STRUGGLING WITH HER CURRENT SITUATION. WAS ABLE TO ONLY SPEND A MOMENT WITH PT-SHE SAID SHE IS UPSET THAT SHE WILL BE GOING TO [facility]. I ENCOURAGED HER TO VIEW IT A TOOL TO GET TO WHERE SHE WANTS TO BE-BACK HOME. MULTIPLE STAFF IN TO CARE FOR PT. GAVE BLESSING, WILL FOLLOW
--- NOTE | 2019-11-10 14:06 | NUR ---
PATIENT RESTING IN BED. VITAL SIGNS AND I&O DONE. CALL LIGHT WITHIN REACH. NO OTHER NEEDS AT THIS TIME
--- NOTE | 2019-11-10 15:57 | NUR ---
1540: THE PT JUST STOOD SEVERAL TIMES AT THE BEDSIDE WITH THE HELP FROM HEATH THE PHYSICAL THERAPIST AND MYSELF USING THE WALKER AND GAIT BELT. PT NOW BACK TO BED AND HER CALL OROURKE IS WITHIN REACH. THE PT REMAINS VERY FEARFUL OF FALLING BUT STATES THAT HER PAIN REMAINS UNDER CONTROL WITH PREMEDICATION FOR PAIN. SEE PHYSICAL THERAPY NOTES.
--- NOTE | 2019-11-10 16:17 | NUR ---
Pt states her pain level is "good" at this time. Foot remains elevated. Harjit hose and scd on the right leg. Raymundo functioning well, dressings remains intact. Fresh ice placed to the left lower leg. Pt was incont of urine and was cleaned and fresh attends were placed.
--- NOTE | 2019-11-10 16:20 | NUR ---
PATIENT RESTING IN BED. RN IN ROOM. PATIENT INCONTINENT OF URINE. PERICARE PERFORMED. PATIENT'S ATTENDS CHANGED. TWO PERSON ASSISTING. CALL LIGHT WITHIN REACH. NO OTHER NEEDS AT THIS TIME
--- NOTE | 2019-11-10 17:04 | NUR ---
PATIENT RESTING IN BED. DAUGHTER IN ROOM. VITAL SIGNS AND I&O DONE. CALL LIGHT WITHIN REACH. NO OTHER NEEDS AT THIS TIME
--- NOTE | 2019-11-10 18:19 | NUR ---
UPON CHANGING THE PT'S ATTENDS THERE APPEARS TO BE SOME YEAST IN HER GROIN. NYSTOP NIO ADDED TO THE ORDERS.
--- NOTE | 2019-11-10 18:24 | NUR ---
PT STOOD AT THE BEDSIDE WITH THE WALKER, GAIT BELT AND WITH 2-3 PERSON ASSIST 3 TIMES THIS SHIFT. THIS REQUIRES MUCH ASSISTANCE FROM TO DUE THIS AND SHE STATES THAT SHE IS VERY SCARED OF FALLING EACH TIME. AFTER THE FIRST TIME THE STANDING AND WITH PREMEDICATION SHE TOLERATED THE PAIN WELL RATING IT LOW THE SECOND TWO TIMES. PT ALSO WORKED WITH OT THIS SHIFT. HER PAIN HAS BEEN WELL CONTROLED OTHER THAN WHEN SHE STOOD THE FIRST TIME. HER K PHOS AND MAG LEVELS WERE REPLACED ORDERED. THE LEFT ANKLE DRESSING WAS CHANGED THIS AM ORDERED AND THE DRESSING REMAINS CDI AT THIS TIME. THE OTHER DRESSINGS REMAIN INTACT WITH A MODERATE AMOUNT OF OLD DRAINAGE NOTED WITHOUT ANY S/S OF INFECTION. BRUCE CHATTERJEE, TONJA, SHIMA, ICE AND ELEVATION IN PLACE.
--- NOTE | 2019-11-10 19:08 | NUR ---
RECEIVED REPORT FROM GARY MATTHEWS. pt RESTING IN BED WITH LEFT LEG ELEVATED. NO REQUESTS AT THIS TIME. CALL LIGHT WITHIN REACH. WHITEBOARD UPDATED.
--- NOTE | 2019-11-10 20:35 | NUR ---
pt RESTING IN BED. DEPENDS CHANGED, PAD SATURATED. NEW LINENS. LEFT ANKLE WRAPPED, SURGICAL DRESSINGS VISUALIZED, NO NEW DRAINAGE NOTED. DRESSINGS INTACT AND DRY. SHIMA FLASHING GREEN. EDEMA NOTED IN LEFT ANKLE AND FOOT. pt ORIENTED TO PERSON, PLACE, AND SITUATION. NOT ORIENTED TO TIME OR DATE, REORIENTED QUICKLY. ASSESSMENT DONE. pt REFUSED BOWEL MED, OTHER MEDICATIONS GIVEN (SEE MAR). NO REQUESTS AT THIS TIME. CALL LIGHT WITHIN REACH.
--- NOTE | 2019-11-10 21:35 | NUR ---
PT CALLED REQUESTING A WARM BLANKET, SHE DENIES FURTHER NEEDS AT THIS TIME. CALL LIGHT IS CLOSE.
--- NOTE | 2019-11-10 22:30 | NUR ---
ASSISTED PRIMARY RN JERONIMO CLEANED/ WIPED PATIENT AND CHANGED ATTENDS AND BED LINEN. PATIENT HAD LARGE LOOSE BROWN WATERY STOOL.
--- NOTE | 2019-11-10 22:55 | NUR ---
CALL LIGHT ON. pt REPORTED A BM. LIQUID BROWN STOOL. LINENS CHANGED. LEFT LEG ELEVATED. NO FURTHER REQUESTS AT THIS TIME. CALL LIGHT AND POSSESSIONS WITHIN REACH.
--- NOTE | 2019-11-11 00:30 | NUR ---
CALL LIGHT ON pt REQUESTED ASSISTANCE REPOSITIONING, DONE. NO FURTHER REQUESTS AT THIS TIME. CALL LIGHT WITHIN REACH.
--- NOTE | 2019-11-11 01:09 | NUR ---
CALL LIGHT ANSWERED. pt REPOSITIONED WITH TWO NURSING STAFF ASSIST. SOCKS AND BLANKETS REMOVED. CALL LIGHT IN REACH. NO ADDITIONAL REQUESTS.
--- NOTE | 2019-11-11 02:39 | NUR ---
PATIENT CALLED. WARM BLANKET PROVIDED.
--- NOTE | 2019-11-11 03:46 | NUR ---
CALL LIGHT ON. ASSISTED pt TO REPOSITION. ASSESSMENT DONE. pt DENIED PAIN AT THIS TIME. NO NEW DRAINAGE NOTED ON ANY DRESSINGS. SHIMA LIGHT FLASHING GREEN. CALL LIGHT WITHIN REACH.
--- NOTE | 2019-11-11 03:56 | NUR ---
PT CALLED D/T BEEPING NOISE, TURNED SCD MACHINE OFF. PT DENIES FURTHER NEEDS AND CALL LIGHT IS CLOSE.
--- NOTE | 2019-11-11 05:05 | NUR ---
CALL LIGHT ON, pt WANTED ALL THE BLANKETS OFF. DEPENDS CHANGED. VITALS AND I&O RECORDED. LOWER DRESSING HAD SLIGHT AMOUNT OF DRAINAGE, REINFORCED WITH ABD. pt REPORTED "I DON'T KNOW WHAT IS WRONG I JUST COULDN'T GET ALL THIS STUFF OFF AND COMFORTABLE." DENIED PAIN AT THIS TIME. NO FURTHER REQUESTS AT THIS TIME. CALL LIGHT WITHIN REACH.
--- NOTE | 2019-11-11 08:08 | NUR ---
PT CALLED TO REPORT SHE NEEDED HER BRIEFS CHANGED. TWO STAFF INTO ROOM TO ASSIST PT SHE REPORTED THAT SHE HAS ALREADY FINISHED. PT CHANGED. NOTED PT HAS DRAINAGE ON PILLOW CASE UNDER PT LEFT ANKLE. REPORTED TO MARIA E VEGA PRIMARY NURSE TODAY THAT DRAINAGE IS LEAKING FROM DRESSING.
--- NOTE | 2019-11-11 08:43 | NUR ---
PT SITTING UP IN BED TRYING TO EAT BKF. EXPLAINED TO PT THAT SHE WILL GET UP INTO THE CHAIR AFTER BKF. PT HAS ISSUES WITH TAKING PO MEDS. SHE CAN ONLY TAKE ONE AT A TIME AND STILLS YTEND TO HAVE PROBLEMS SWALLOW THEM. CRUSHED MEDS AND PLACED IN PUDDING AND PT DID WELL WITH THIS. PT IS PICKING AT HER BKF. AT THE BEDSIDE GAVE HIM A CUP OF COFFEE.
--- NOTE | 2019-11-11 10:50 | NUR ---
DRESSING CHANGE TALKED WITH DR SAMAYOA AND THEN TALKED WITH DEBORA. FARM EQUIPMENT ENGINE MECHANIC NURSE ABOUT THE DRESSING DUE TO THE CURRENT DRESSING HAS TAPE AND IT APPEARS ON THE LEFT LEG A BLISTER IS FORMING. THE FOOT AND LEG IS VERY BRUSIED AND HAS A LARGE AMOUNT OF DRAINAGE FROM THE ANKLE AREA. A ALLEVENT FOAM SPONGE DRESSING APPLIED WITH A ABD OVER THAT ON THE ANKLE AND KNEE AREA THEN WRAPED WITH A 4" TRUE BANDAGE. PULSES PRESENT IN ALL AREAS TOP OF FOOT AND THE ANKLE AREA. PT HAS FEELING AND IS ABLE TO WIGGLE TOES.
--- NOTE | 2019-11-11 10:54 | NUR ---
UP TO CHAIR PT WORKING WITH PT TO STAND AND TO GET TO THE CHAIR. THIS PROCESS IS A THREE STAFF PROCESS. PT UNABLE TO HOLD HER WEIGHT UP EVEN WITH THE USE OF THE CEILING LIFT. DURING THIS PROCESS DR SAMAYOA AND DR SWEET INTO SEE PT. PT UP TO THE CHAIR WITH CEILING LIFT, CALL LIGHT WITHIN REACH
--- NOTE | 2019-11-11 11:10 | NUR ---
In and spoke with pt. Her sister is visiting. Pt is more cheerful and laughing with sister. States she is doing ok, unable to get out of bed and lift was used. Sitting recliner at this time. She was able to speak with Dr. Stringer this am and plans on staying1-3 more days depending on how well she does. She asks if I can call her children and they have many questions and she can't answer. She plans on dc to [facility] when released. Called and spoke with son, he is concerned for her mental health and informed she seem happier today. He also wanted to know if she remain on tx for her UTI and updated until November 11 antibiotic will cont. I also call her her daughter after noon and she was concerned for her mom and depression. UPdated I had offered to assist her with a counseling appt on Saturday and she declined. She did accept [facility] to PE[facility] support and visited with them. Daughter is wanting to know if I can assist her with getting a room at [facility] where she can stand at the window to visit. Informed she will need to discuss with [facility] as it was my understanding pt are taken to the dinning area to visit through the window on cell phones. Reminded her mom will be on isolation for 14 days where she will not leave her room.
--- NOTE | 2019-11-11 12:59 | NUR ---
CHECKED IN ON PT- ANITA IN VISITING. SHE WAS SITTING UP IN BED. BRUISE STILL VISIBLE ON FOREHEAD. PT STILL HAS DEPRESSED LOOK ON FACE, WILL CHECK BACK AND LET THEM BE TOGETHER
--- NOTE | 2019-11-11 13:12 | NUR ---
PT BACK TO BED VIA CEILING LIFT. THEN ATTENDS CHANGED AT THIS TIME. PT DID NOT C/O PAIN WITH THIS ACTIVITY.
--- NOTE | 2019-11-11 13:57 | NUR ---
PT ALERT, ORIENTED AND HER SISTER FROM [place] IN TO VISIT. PT SEEMS MORE UPBEAT THIS AFTERNOON AND APPEARS HER SISTER SURPRISED HER WITH VISIT. PT SAID SHE HAS BEEN WORKING HARD WITH BOTH P.T. AND OT. GAVE BLESSING
--- NOTE | 2019-11-11 16:12 | NUR ---
LEG FEELS BETTER NOW. "THANK YOU FOR GIVING ME THE PAIN MEDS"
--- NOTE | 2019-11-11 17:53 | NUR ---
PT UP TO THE CHAIR WITH THE CEILING LIFT. DINNER TRAY SETUP FOR HER. PT DID WELL WITH THIS. SHE WAS ALSO INCONTENT OF URINE IN HER ATTENDS. ATTENDS CHANGED.
--- NOTE | 2019-11-11 19:32 | NUR ---
PT ATTENDS CHANGED, AND REPOSITIONED IN BED.
--- NOTE | 2019-11-11 20:33 | NUR ---
VITALS AND I&OS DONE AND CHARTED. EMPTIED GARBAGES AND CLEANED UP THE ROOM. FRESH ICE WATER GIVEN. BEDSIDE TABLE AND CALL LIGHT IN REACH.
--- NOTE | 2019-11-11 20:55 | NUR ---
in pt room with daughter roseanne - pt request pain pill and reposition legs. call light in reach. watching tv - meds given per her request crushed in pudding.
--- NOTE | 2019-11-11 23:31 | NUR ---
pt used the call light and asked to have some help with a drink of water. i helped her and asked if there is anything else i can do for her? she said she is good. call light and bedside table within her reach.
--- NOTE | 2019-11-12 01:05 | NUR ---
WITH THE HELP OF GARY FIERRO WE REPOSITIONED PT IN BED TO HER COMFORT. BEDSIDE TABLE AND CALL LIGHT IN REACH.
--- NOTE | 2019-11-12 04:30 | NUR ---
pt inc lg amt of urine and liq stool. linen and attends changed with help of oil burner repairersteven avendaño. nora care done, area red and treated with barrier wipes and nystop powder. pt sligtly confused thought she was talking to someone on phone during the attends change. noted and charge aware that anabel drsg is not attached to suction box. lle with 3-4 plus edema.
--- NOTE | 2019-11-12 05:16 | NUR ---
PT EYES CLOSED RESP RATE EVEN, BED ALARM ON AND CALL LIGHT IN REACH.
--- NOTE | 2019-11-12 06:57 | NUR ---
VITALS AND I&OS DONE AND CHARTED. WITH THE HELP OF GARY FIERRO WE CHANGED PT'S ATTEND INCONTINENT OF URINE. BEDSIDE TABLE AND CALL LIGHT IN REACH.
--- NOTE | 2019-11-12 07:47 | NUR ---
PT UP TO THE CHAIR AT THIS TIEM WITH CEILING LIFT. CALL LIGHT WITHIN REACH, HAD PAIN WHEN POSITING LEFT FOOT. PT TENDS TO KEEP LEFT FOOT TURNED OUT TO THE LEFT AND NOT IN AN UPRIGHT POSITION WITH TOES TO THE CEILING.
--- NOTE | 2019-11-12 08:45 | NUR ---
PT REMAINS UP IN THE CHAIR IS AT THE BEDSIDE. CRUSHED PT MEDS FOR HER AND PLACED IN PUDDING. PT IS ABLE TO SWALLOW THEM BETTER WHEN CRUSHED IN PUDDING. WAITING ON SOME OATMEAL FROM THE KITCHEN AT THIS TIME.
--- NOTE | 2019-11-12 10:44 | NUR ---
PT HAS WORKED WITH PT AND OT THIS AM. PT HAS BEEN UP IN THE CHAIR AND NOW IS BACK TO BED. PT WAS INCONTENT OF URINE. ATTENDS CHANGED AND IS IN BED AND IT WAS EXPLAINED TO HER THAT SHE WILL BE UP FOR LUNCH.
--- NOTE | 2019-11-12 11:10 | NUR ---
IV FLUIDS INFUSING AT THIS TIME, PT APPEARS TO BE SLEEPING AT THIS TIME.
--- NOTE | 2019-11-12 11:50 | NUR ---
PT ATTENDS CHANGED HAD VERY LARGE BM, THEN PT UP TO CHAIR FOR LUNCH.
--- NOTE | 2019-11-12 12:14 | NUR ---
PT REMAINS UP IN CHAIR ATE ALL OF HER SANDWICH AND SOME OF HER SOUP. THIS IS THE BEST SHE HAS EATEN IN THE PAST FEW DAYS.
--- NOTE | 2019-11-12 13:16 | NUR ---
PT SITTING IN CHAIR-ALERT, ORIENTED AND WATCHING TV. PT HAD DISCOURAGED LOOK ON HER FACE, AND ADMITTED SHE WAS MAYBE ALITLE DEPRESSED. HER REASON IS SHE BELIEVES SHE WILL BE IN SNF FOR UP TO 3 MONTHS BEFORE GOING HOME FOLLOWING DC FROM [facility]. DEBRIEFED PT, WORKED ON DEVELOPING MEASURABLE SHORT TERM GOALS. PT SAID SHE WAS TIRED-SHE FELT P.T. WAS WORKING HER REALLY HARD. HAD PRAYER WITH PT, WILL FOLLOW
--- NOTE | 2019-11-12 14:10 | NUR ---
PT REMAINS UP IN THE CHAIR AT THIS TIME HAS BEEN SLEEPING.
--- NOTE | 2019-11-12 14:30 | NUR ---
Spoke with pt. She is up in chair. Rn in room. Pt states she has not been able to take steps at this time. Rn assisting her with grooming.
--- NOTE | 2019-11-12 16:18 | NUR ---
Left message for pts daughter. She was wanting to know if mom could have a room with an outside window. I had called [facility] last night. They left a message today, stating they had save a room with a window for [facility].
--- NOTE | 2019-11-12 17:04 | NUR ---
PT INCONTENT OF URINE CHANGED AND THEN UP TO THE CHAIR WITH THE CEILING LIFT. PT TRAY SET UP FOR HER AND SHE IS FEEDING HERSELF.
--- NOTE | 2019-11-12 18:17 | NUR ---
PT BACK TO BE DID WELL WITH THE CEILING LIFT. ATTENDS DRY AT THIS TIME, SIDERAILS X2 CALL LIGHT WITHIN REACH. ROOM PICKED UP DUE TO MORE FAMILY IS TO COME SHE HER THIS EVENING.
--- NOTE | 2019-11-12 19:20 | NUR ---
SHIFT REPROT RECEIVED FROM TUNDE SANDERSON AT BEDSIDE. PT RESTING IN BED, PLACED ON BEDPAN PER PT REQUEST. SHIMA DRESSING INTACT, GREEN OKAY LIGHT FLASHING. NONADHERENT FOAM DRESSING X2 ALSO NOTED TO LLE, FOOT PUMP IN PLACE. SCD AND BRUCE HOSE TO RLE. NO ADDITIONAL NEEDS, CALL LIGHT IN REACH.
--- NOTE | 2019-11-12 19:35 | NUR ---
WITH THE HELP OF AGAPITO PANDYA WE GOT PT OFF THE BEDPAN AND CLEANED UP FROM A LARGE SOFT BM. REPOSITIONED PT UP IN BED TO HER COMFORT. BEDSIDE TABLE AND CALL LIGHT IN REACH.
--- NOTE | 2019-11-12 20:00 | NUR ---
ASSESSMENT COMPLETE, SCHEDULED MEDS GIVEN (SEE EMAR). PT A/O, A LITTLE FOREGETFUL AT TIMES BUT HAS BEEN CALLING APPROPERIATELY. PRN PAIN PILL ALSO GIVEN FOR PAIN IN LLE. NO CHANGES IN DRESSING SINCE BEGINNING OF SHIFT. CMS INTACT, BILATERAL PEDAL PULSES NOTED. SHIMA DRESSING INTACT, GREEN OKAY LIGHT FLASHING. NONADHERENT FOAM DRESSING X2 ALSO REMAIN IN PLACE, SCANT SEROSANGUINEOUS SHADOWING NOTED. DRESSING C/D/I WHEN VIEWING TRUE WRAP. ANKLE PUMPS IN PLACE, BRUCE HOSE TO RLE. ICE CREAM AND FREDY CRACKERS PROVIDED PER PT REQUEST. NO FURTHER NEEDS. CALL LIGHT IN REACH.
--- NOTE | 2019-11-12 23:39 | NUR ---
PT RESTING IN BED WITH EYES CLOSED. RR EVEN AND UNLABORED, NO DISTRESS NOTED. CALL LIGHT IN REACH.
--- NOTE | 2019-11-12 23:53 | NUR ---
WARM BLANKET GIVEN PER PT REQUEST.
--- NOTE | 2019-11-13 00:49 | NUR ---
pt repositioned per pt request. hips floated. no further needs, call light in reach. green flashing light noted with anabel dressing.
--- NOTE | 2019-11-13 03:00 | NUR ---
ASSESSMENT COMPLETE, NO NEW CHANGES OR CONCERNS. PRN PAIN MEDICATION GIVEN FOR 5/10 PAIN IN LLE. BRUCE CHATTERJEE AND SCD'S TO RLE, SCD'S ONLY TO LLE. SHIMA DRESSING INTACT, GREEN OKAY LIGHT FLASHING. DISTAL DRESSINGS X2 WNL, NO CHANGE SINCE PREVIOUS ASSESSMENT. PT DENIES NAUSEA. INCONTINENT OF URINE, NAHID CARE DONE AND PT REPOSITIONED WITH HELP FROM DAVID VEGA. NO FURTHER NEEDS, CALL LIGHT IN REACH.
--- NOTE | 2019-11-13 05:59 | NUR ---
PT SLEPT OFF AND ON, CALLED THROUGHOUT THE NIGHT TO BE REPOSITIONED. TOE TOUCH TO LLE, MARTINA LIFT FOR TRANSFER TO CHAIR. REGULAR DIET, TOLERATING WELL, NO NAUSEA REPORTED. PAIN CONTROLLED WITH PRN PAIN MEDICATIONS, VSS. SHIMA DRESSING FLASHING GREEN AND DRESSINGS X2 UNCHANGED. BRUCE CHATTERJEE AND SCD'S. ASSISTED WITH TURNING PRN. INCONTINENT OF URINE.
--- NOTE | 2019-11-13 07:25 | NUR ---
REPORT RECIEVED FROM Mohsen HILLIARD RN. PATIENT LYING IN BED WITH EYES CLOSED AT THIS TIME. ALLOWED TO REST. CALL LIGHT IN REACH, BED RAILS UP X2.
--- NOTE | 2019-11-13 08:10 | NUR ---
2PA WITH OTHER WOODWORK TEACHER PATIENT FROM BED TO CHAIR USING MARTINA, PATIENT TOLERATED WELL. SET UP FOR BREAKFAST. FACE AND HANDS WASHED, BRIEF CHANGED. CALL LIGHT IN REACH.
--- NOTE | 2019-11-13 09:58 | NUR ---
ASSESSMENT COMPLETED. STATES PAIN IS CONTROLLED AT THIS TIME. DENIES OTHER NEEDS. EDUCATED ON IV MEDICATION PRESCRIBED AND WHY PRESCRIBED. VERBALIZES UNDERSTANDING. CALL LIGHT IN REACH, SITTING IN RECLINER.
--- NOTE | 2019-11-13 10:03 | NUR ---
PATIENT UP IN CHAIR, EYES CLOSED. WOKE FOR VITALS AND I&OS. LINENS CHANGED. FACE AND HANDS WASHED/ TEETH BRUSHED. RESH ICE IN CUP. CALL LIGHT IN REACH. NOOTHER NEEDS
--- NOTE | 2019-11-13 10:40 | NUR ---
SPOKE WITH DR SAMAYOA WHO STATES HE IS READY TO DISCHARGE TO SNF. HE WILL FILL OUT ORDERS WHICH WHERE PRINTED AND LEFT ON CHART BY NURSING. CALLED [facility]. SPOKE WITH LELAND. SHE STATES THEY CAN TAKE PATIENT TODAY. DISCUSSED THAT I WILL SEND ORDERS WHEN THEY ARE DONE.
[2019-11-13] MEDS ORDERED: SENNA LAX8.6 MG PO (10:54)
[2019-11-13] MEDS ORDERED: NUCYNTA50 MG PO (10:54)
[2019-11-13] MEDS ORDERED: ASPIRIN EC325 MG PO (10:54)
--- NOTE | 2019-11-13 11:02 | NUR ---
Assist into bed by Kelley lift. Incontinent of urine, brief changed, nora-care completed. Dr. Stringer in to see patient. Verbal orders to remove Picot and place Allevyn, dressing changed as prescribed. Ecchymosis to incision sites. Dried serosanguinous drainage on previous dressings. Incision approximated, no odor or redness or heat noted at sites. New dressings applied. Denies other needs at this time. Call light in reach, Bed rails up X2.
--- NOTE | 2019-11-13 11:07 | NUR ---
2PA PATIENT BACK TO BED, GARY HURTADO ASSISTED, USED MARITNA. PATIENT WAS INCONTINENT, CHANGED BRIEF. MD IN TO VISIT WITH PATIENT. CALL LIGHT IN REACH.
--- NOTE | 2019-11-13 12:23 | NUR ---
ORDERS, PASSR AND RX FAXED TO [facility]. FAX CONFIRMATION RECEIVED 1224PM.
--- NOTE | 2019-11-13 12:25 | NUR ---
RECEIVED A CALL FROM PATIENTS SON JULIANNA WITH SOME QUESTIONS. UPDATED HIM THAT DR SAMAYOA HAS WRITTEN DICHARGE THIS MORNING. HE WONDERED HOW SHE WAS BEING TRANSPORTED. DISCUSSED SHE MAY NEED NON-EMERGENT TRANSFER SHE IS NOT GETTING OOB YET AND NEEDING [facility]. DISCUSSED THAT THERAPIST AND STAFF WILL DETERMINE IF WHEELCHAIR IS SAFE, IF NOT, WE WILL FILL OUT REQUEST FOR MEDICARE PAYMENT TO BE FILED WITH EMS SERVICE. NOT ABLE TO QUARANTEE PAYMENT WITH MEDICARE AT THIS TIME. HE STATES THAT WILL BE FINE. ALL QUESTIONS ANSWERED.
--- NOTE | 2019-11-13 13:07 | NUR ---
PT TO BE MOVED TO [facility] TODAY. SHE STILL EXPRESSES HER DISPLEASURE WITH THIS DECISION. PT WANTS TO GO HOME, BUT ACKNOWLEDGES HER NEED FOR SKILLED CARE. PT STILL EMOTIONAL, GAVE COMFORT AND HAD PRAYER.
--- NOTE | 2019-11-13 13:44 | NUR ---
PATIENT AWAKE IN BED, VITALS AND I&OS CHARTED. GARBAGE EMPTIED. CALL LIGHT IN REACH. NO OTHER NEEDS AT THIS TIME.
--- NOTE | 2019-11-13 14:00 | NUR ---
SPOKE WITH LELAND MURRY RN AT [facility]. SHE STATES ORDERS ARE FINE. THEY DO NOT CARRY THE PAIN MEDICATION ORDERED THOUGH ([facility]). DISCUSSED I WILL CHECK WITH PHARMACY HERE TO SEE IF WE CAN PROVIDE A PART FILL SO THEY CAN GET SOME IN STOCK. SPOKE WITH PHARMACY TECHS, PHARMACIST IS IN A CODE AT THIS TIME. SPOKE WITH CONTRACT ADMINISTRATION COORDINATOR WHO STATES SHE WILL HAVE GO TO THEIR PHARMACY TO FILL AND THEN THEY CAN TAKE IT TO [facility] WITH HER. UPDATED [facility].
--- NOTE | 2019-11-13 14:23 | NUR ---
Incontinent of urine at this time. Brief and linens changed. Denies other needs at this time. Call light in reach, visitor at bedside.
--- NOTE | 2019-11-13 15:19 | NUR ---
NO PHARMACY IN [facility] HAS NUCYNTA. OUR PHARMACY WILL DO A PARTIAL FILL WHEN RETURNS WITH RX. THIS WILL BE SENT TO [facility] WITH PATIENT. MESSAGE LEFT FOR UNEMPLOYMENT EXAMINER AT [facility]. TEXTED DR SAMAYOA REGARDING THIS ISSUE.
--- NOTE | 2019-11-13 15:23 | NUR ---
REPORT CALLED TO GARY JESUS, AT [facility].
--- NOTE | 2019-11-13 15:42 | NUR ---
INCONTINENT OF URINE. BRIEF CHANGED, NAHID-CARE COMPLETED. DENIES OTHER NEEDS AT THIS TIME.
--- NOTE | 2019-11-13 15:51 | NUR ---
PATIENT AWAKE IN BED, SON IN ROOM. THIS BOBBIN WINDER TENDER AND RN GENESIS CHANGED PATIENTS BRIEF. PERSONAL ITEMS GATHERED. THIS BOBBIN WINDER TENDER AND PATIENTS SON DRESSED PATIENT IN PERSNOAL CLOTHES. WAITING FOR D/C. CALL LIGHT IN REACH.
== END 2019-11-13 16:00 | DRG 562 ==
LOC: ED 02:53 → MS 02:55 → ED 04:32 → MS 11-10 08:30
PROVIDERS: ADMIT Specialist
DX: S82.302A Unspecified fracture of lower end of left tibia, initial encounter for closed fracture (principal); G92 Toxic encephalopathy; D62 Acute posthemorrhagic anemia; F33.9 Major depressive disorder, recurrent, unspecified; E87.1 Hypo-osmolality and hyponatremia; S82.832A Other fracture of upper and lower end of left fibula, initial encounter for closed fracture; G89.18 Other acute postprocedural pain; M19.90 Unspecified osteoarthritis, unspecified site; I25.10 Atherosclerotic heart disease of native coronary artery without angina pectoris; I10 Essential (primary) hypertension; N30.90 Cystitis, unspecified without hematuria; B95.2 Enterococcus as the cause of diseases classified elsewhere; K21.9 Gastro-esophageal reflux disease without esophagitis; E55.9 Vitamin D deficiency, unspecified; D52.9 Folate deficiency anemia, unspecified; E86.0 Dehydration; E83.42 Hypomagnesemia; E83.39 Other disorders of phosphorus metabolism; T42.6X5A Adverse effect of other antiepileptic and sedative-hypnotic drugs, initial encounter; W18.30XA Fall on same level, unspecified, initial encounter; Y92.239 Unspecified place in hospital as the place of occurrence of the external cause; Y92.009 Unspecified place in unspecified non-institutional (private) residence as the place of occurrence of the external cause; F10.20 Alcohol dependence, uncomplicated; Z79.899 Other long term (current) drug therapy; Z88.5 Allergy status to narcotic agent; Z88.0 Allergy status to penicillin; Z88.8 Allergy status to other drugs, medicaments and biological substances
CPT/HCPCS: 01392; 36415; 64445; 64447; 70450; 71045; 73590; 73610; 80048; 80053; 80076; 81001; 83735; 84100; 84132; 85025; 86850; 86900; 86901; 86920; 93005; 93010; 97110; 97162; 97166; 97530; 97535; J0330; J0690; J0735; J1100; J1885; J2001; J2250; J2405; J2704; J2765; J3010; J3475; J7030; J7060; J7121; P9016

== ENCOUNTER 2021-03-15 11:23 | Inpatient (IN) | payer MEDICARE, OTHER ==
[~2021-03-15] VITALS: Ht 160 cm; Wt 85.9 kg
[~2021-03-15 11:23] MED LIST changes: +ASPIRIN EC325 MG PO; +NUCYNTA50 MG PO; +SENNA LAX8.6 MG PO
--- OUTSIDE RECORDS SUMMARY | 2021-03-15 11:30 | XMS ---
PreManage Notification: LIV BRIAN Security Commercial Lending Relationship Manager Events No recent Security Events currently on file CRITERIA MET - [facility] - Has Care Guidelines CARE PROVIDERS GEM SHANKS Internal Medicine: Pulmonary Disease 11/09/2019-Current PHONE: Unknown [facility] Group Home [facility] Current PHONE: [phone] Jo Ann has no Care Guidelines for this patient. Care History Medical/Surgical 11/09/2019 [facility] Patient has follow up on 11/12/[address] He. 11/09/2019 [facility] - Patient is currently established with [facility]. If patient is seen in the ED during business hours. Please contact CHWs at [facility]. Care Recommendation: If this patient has had 5 or more Emergency Department visits in the last 12 months.\T\nbsp; Patient will require education on the scope and purpose of the ED as an acute care provider not a Primary Care Provider and should not be utilized for chronic conditions.\T\nbsp; These are guidelines and the provider should exercise clinical judgment when providing care. Omar VISIT COUNT (12 MO.) 1 COMPA Harris TOTAL 1 NOTE: Visits indicate total known visits. ED/UCC VISIT TRACKING (12 MO.) 03/15/2021 11:23 COMPA Gallegos [place] TYPE: Emergency COMPLAINT: - FALL INPATIENT VISIT TRACKING (12 MO.) No inpatient visits to display in this time frame [email or web address]
[2021-03-15] MEDS ORDERED: LISINOPRIL10 MG PO (11:47)
[2021-03-15] MEDS ORDERED: BAYER CHEWABLE81 MG PO (16:58)
--- NOTE | 2021-03-15 19:57 | NUR ---
03/15/211956 Katie Kim 1940-PATIENT ARRIVED TO PACU ON 9L MASK NONAROUSABLE RN DOING JAW THRUST TO MAINTAIN OPEN AIRWAY. ORAL AIRWAY IN PLACE. SR WITH PVC. IVF INFUSING. DOE CATHETER DRAINING YELLOW URINE. DRESSING TO RIGHT HIP HAS SMALL AMT OF DRAINAGE ON DRESSING. BRUCE HOSE AND SCDS PLACED ON PATIENT. 1954-RN DOING JAW THRUST TO MAINTAIN OPEN AIRWAY. WILL PLACE ICE TO RIGHT HIP.
--- NOTE | 2021-03-15 22:47 | NUR ---
PATIENT POST-OP VITALS TAKEN AND RECORDED. DOE EMPTIED AND DOE CARE COMPLETED. PATIENT REFUSING BOWEL CARE AT THIS TIME. PATIENT REFUSED SCHECDULED PAIN MEDICATION AT THIS TIME. DR DUENAS IN TO SEE PATIENT. WILY PROVIDED. CALL LIGHT IN REACH. BED ALARM ON FOR SAFETY. CALL LIGHT IN REACH.
--- NOTE | 2021-03-15 23:44 | NUR ---
PATIENT SCHEDULED MEDICATION GIVEN PER ORDER. PATIENT DENIES ANY PAIN. IV INFUSING PER ORDER. PATIENT DENIES ANY NEEDS. CALL LIGHT IN REACH. BED ALARM ON FOR SAFETY.
--- NOTE | 2021-03-16 02:26 | NUR ---
PATIENTS VITALS TAKEN AND RECORDED. SCHEDULED MEDICATIONS GIVEN PER ORDER. PATIENT DENIES ANY PAIN. DOE EMPTIED. PATIENTS IV INFUSING PER ORDER. SCDS, TEDHOSE, AND HEEL PROTECTORS IN PLACE. PATIENT DENIES ANY NEEDS. CALL LIGHT IN REACH. BED ALARM ON FOR SAFETY.
--- NOTE | 2021-03-16 04:22 | NUR ---
PATIENT IS RESTING IN BED WITH EYES CLOSED, CPOX READINGS ARE WNL. CALL LIGHT IN REACH.
--- NOTE | 2021-03-16 05:27 | NUR ---
PATIENTS VITALS TAKEN AND RECORDED. DOE EMPTIED AND DOE CARE COMPLETED. PATIENT REPOSITIONED IN BED. SCDS, HEEL PROTECTORS, AND TEDHOSE IN USE. TOWEL ROLLED UNDER RIGHT ANKLE PER ORDER. PATIENT DENIES ANY PAIN. PATIENTS IV INFUSING PER ORDER. PATIENT DENIES ANY FURTHER NEEDS. CALL LIGHT IN REACH.
--- NOTE | 2021-03-16 05:59 | NUR ---
PATIENT ASSISTED TO THE BSC A 2-3PA HEAVY PIVOT TRANSFER. PATIENT WAS UNABLE TO HAVE BM. PATIENT WAS PAINFUL WITH MOVEMENT. PATIENT IS BACK IN BED RESTING. SCDS, TEDHOSE, AND HEEL PROTECOTRS IN PLACE. ROLLED UP TOWEL UNDER RIGHT ANKLE PER ORDER. PATIENT IS NOW ON RA. PATIENT DENIES ANY FURTHER NEEDS. CALL LIGHT IN REACH.
--- NOTE | 2021-03-16 06:56 | NUR ---
PATIENTS MORNING MEDICATIONS GIVEN PER ORDER. PATIENT DENIES ANY FURTHER NEEDS. CALL LIGHT IN REACH.
--- NOTE | 2021-03-16 07:27 | OR ---
[facility] [address], [place] [address] Signed DATE OF OPERATION: 03/15/2021 SURGEON: Lee Stringer MD PREOPERATIVE DIAGNOSIS: Right intertrochanteric hip fracture. POSTOPERATIVE DIAGNOSIS: Right intertrochanteric hip fracture. PROCEDURE PERFORMED: Open reduction and internal fixation of right hip. BODY SHOP MECHANIC: Gavi Perez PA-C. Gavi was present and critical for all portions of procedure. ANESTHESIA: General. BLOOD LOSS: 100 mL. IMPLANTS: Four-hole Synthes DHS with 90 mm lag screw and four 4.5 screws. BRIEF HISTORY: Lissette is a 75-year-old female, who suffered a ground level fall last night. She was picked up by her family and put in the chair. However, she continued to have hip pain. Ultimately presented to the ER today and radiograph showed a nondisplaced intertrochanteric hip fracture. She was seen in the emergency department. Risks and benefits of operative treatment were discussed with her and the family and the fact that early intervention is better in terms of complications postoperatively. They elected to proceed. DESCRIPTION OF PROCEDURE: Once consent was obtained, she was taken to the operating room. After adequate anesthesia, she was placed on the fracture table. Both feet were placed in foot traction. The left foot was extended and adducted. The right was left in a neutral position. C-arm was brought in. Radiograph showed the fracture to be nondisplaced. Electronically Signed By: LEE STRINGER MD 03/16/21 0727 PATIENT NAME: LISSETTE BRIAN OPERATIVE REPORT DATE OF : 47 REPORT #: [id number] PHYSICIAN: LEE STRINGER MD PCP: ANN MARIE RABAGO MD REPORT IS CONFIDENTIAL AND NOT TO BE RELEASED WITHOUT AUTHORIZATION [facility] [address], [place] [address] Signed The hip was then prepped and draped in a standard sterile fashion. A 3 inch incision was made laterally, carried through the skin and subcutaneous tissue. IT band was then divided longitudinally and the vastus lateralis was split bluntly down to the femur. The guide for the 135 DHS was then placed on the lateral femur and the guide pin was advanced from the lateral femur across the femoral neck into a low center-center position in the femoral head. The guide pin was then eight measured to a 90 and a triple reamer was then used to ream the femur up into the femoral head. The 90 mm lag screw was then advanced over the guide pin until it was well-seated in the femoral head. The four-hole DHS was then slid over this and advanced until it was well-seated against the lateral femur in the center position. The four 4.5 mm screws were then drilled and appropriate length screws were placed. The wound was then copiously irrigated with antibiotic solution. The fascia was closed using #2 Stratafix, subcutaneous tissue with 0 Stratafix, and skin with tanvir. Wound was dressed with an Acticoat 7 dressing. She was awakened, taken to the recovery room in satisfactory condition. All sponge, needle, and instrument counts were correct. Lee Stringer MD BA/MODL /[id number] Copies: ~ Electronically Signed By: LEE STRINGER MD 03/16/21 0727 PATIENT NAME: ROCLISSETTE ELLEN OPERATIVE REPORT DATE OF : 47 REPORT #: [id number] PHYSICIAN: LEE STRINGER MD PCP: ANN MARIE RABAGO MD REPORT IS CONFIDENTIAL AND NOT TO BE RELEASED WITHOUT AUTHORIZATION
[2021-03-16] MEDS ORDERED: FOLIC ACID1 MG PO (07:57)
--- NOTE | 2021-03-16 08:00 | NUR ---
Spoke with Lissette following her visit with Dr. Stringer. Pt cont. to josé luis e at home with her spouse. She has a car electronics installer. Has walker, wc, cane, hospital bed, toilet riser, and an electric recliner. Pt plans on dc to home and states she will never go to a SNF again as it was a bad exper- ience. We discussed this is the recommendation by her surgeon and she declines. She states her daughter is finding her a cg and has also called someone to come in and speak with her about her alcohol use. She is unsure if this is CARTER, but thinks they are coming to the hospital to see her. She has had [facility] in the past for HH and would like the m to return for PT/OT. Pt plans on going home to her home when she can discharge. Attempted to call spouse and unable to reach. Called and spoke with son, Vin, as Dr. Stringer had discussed dc with him.
--- NOTE | 2021-03-16 09:00 | NUR ---
REPORT RECEIVED FROM NIGHT RN AND PT. CARE RESUMED. PT. IS ALERT AND ORIENTED. SHE DENIES PAIN AT THIS TIME. ACTICOAT DRESSING INTACT WITH MODERATE SERISANGUINOUS SHADOWING ON THE RIGHT HIP. +2 EDEMA AROUND THE SITE. DOE REMOVED BY RN STUDENT AND PT. ABLE TO VOID. SCD/BRUCE HOSE, HEEL PROTECTORS IN PLACE AND LEG ELEVATED. SKIN TEAR ON RIGHT ARM DRESSED WITH ALLEVYN. ABRASION ON THE L. FOREHEAD IS DRY AND SCABBED. PT. DENIES MOST SIGNS OF ETOH WITHDRAWAL, EXCEPT MILD TREMORS IN HANDS. WILL CONTINUE TO MONITOR. DISCUSSED POC AND MEDS. LEFT RESTING WITH CALL LIGHT IN REACH.
--- NOTE | 2021-03-16 09:32 | NUR ---
Jo Removal per order at 0910. Educated patient on jo removal process and check void. Removed jo without incident. 10mL saline removed prior to removal. Emptied 325 mL from jo prior to removal. Patient tolerarted well and verbalized understanding of education and agreed to call when she needs help.
--- NOTE | 2021-03-16 10:05 | NUR ---
PT WORKING WITH P.T. REPORTS NEED TO VOID, BUT COULD NOT LAWN CARETAKER TIME AND HAD AN INCONTINENT VOID. PT. ASSISTED BY P.T. WITH FWW/ TOE TOUCH TO THE BSC. BEDDING CHANGED AND NEW ATTENDS IN PLACE. LEFT RESTING WITH EMPLOYER RELATIONS REPRESENTATIVE AND P.T. IN THE ROOM.
--- NOTE | 2021-03-16 11:45 | NUR ---
Pts son,Vin, here. Met with him and he is aware mom refusing to go to a SNF. He and sister are attempting to hire a cg (he states she works placing cg), He has questions regarding HH and discussed [facility] and what HH does, discussed equipment and pt is well set with equipment. Son also states he is able to work remotely and would be able to stay for a week or so until they can hire a cg. He also states spouse is frail and would not be able to assist pt with care, grandson is on the spectrum and would only be able to assist if someone was present to direct him. Son and daughter will cont. to attempt to find cg to stay with pt and assist. Will cont. to work with family for plan for dc. Pt declined list of SNFS and already made her choice for HH.
--- NOTE | 2021-03-16 12:33 | NUR ---
PT ALERT, ORIENTED AND VISITING WITH SON JULIANNA. HAD TIME TO DEBRIEF PT, SHE ADMITTED SHE WILL NOT GO TO SNF, FEELS SHE HAS EVERYTHING SHE NEEDS. HAS HELP FROM FAMILY, WORKING TO FIND CG. PT CONFESSED TO ME SHE NEEDS HELP WITH A DRINKING PROBLEM. IS OPEN TO PEER TO PEER-MENTIONED SHE HAS SPOKEN WITH CM REGARDING THIS NEED. PT REQUESTED PRAYER, WILL CONTINUE TO FOLLOW
--- NOTE | 2021-03-16 12:46 | NUR ---
MED REC COMPLETE
--- NOTE | 2021-03-16 13:34 | NUR ---
PT. DENIES PAIN AT THIS TIME. THERE IS MORE SHADOWING, COVERING 75% OF FOAM DRESSING. DRESSING REMAINS INTACT AND NO LEAKING THROUGH. +2 EDEMA AROUND INCISION SITE REMAINS UNCHANGED. SON AND IN THE ROOM. PT. VOIDING WELL. ICE, SCDS, BRUCE HOSE, HEEL PROTECTORS IN PLACE. PT. DENIES FURTHER NEEDS. LEFT RESTING WITH CALL LIGHT IN REACH.
--- NOTE | 2021-03-16 14:06 | NUR ---
R. HIP DRESSING SATURATED. NOTIFIED. ORDER GIVEN FOR REPLACING ACTICOAT DRESSING AND A SPIKA DRESSING.
--- NOTE | 2021-03-16 16:09 | NUR ---
ROUNDING ON PT. SHE REPORTS HAVING INCONTINENT VOID. SHE STATES "I DON'T HAVE TO GET UP IF I ALREADY PEED, RIGHT?" THIS NURSE DISCUSSED IMPORTANCE OF STANDING FOR RECOVERY. PT. CLEANED AND ATTENDS CHANGED. SPIKA DRESSING CDI. ACTICOAT ON R. HIP HAS MODERATE SANGUINOUS DRAINAGE AND IS INTACT WITHOUT LEAKAGE. PT. GIVEN FRESH ICE PACK. DENIES PAIN AT THIS TIME. LEFT RESTING WITH CALL LIGHT IN REACH.
--- NOTE | 2021-03-16 17:30 | NUR ---
PT. IS INCREASINGLY DIAPHORETIC AND CONTINUES TO HAVE HAND TREMORS. CIWA ADMINISTERED AND SCORE OF 11. NOTIFIED NO NEW ORDERS. WILL CONTINUE TO MONITOR.
--- NOTE | 2021-03-16 18:14 | EKG ---
[facility] [address] [place] [id number] Signed Normal sinus rhythm Normal ECG When compared with ECG of 07-NOV-2019 04:38, T wave inversion no longer evident in Inferior leads T wave inversion less evident in Anterior leads Confirmed by ANDREW DUENAS MD ([id number]) on 03/16/2021 6:13:56 PM Electronically Signed By: ANDREW DUENAS MD 03/16/21 1814 PATIENT NAME: ROCLIV VY Electrocardiogram DATE OF : 47 PHYSICIAN: ANDREW DUENAS MD REPORT #: [id number] REPORT IS CONFIDENTIAL AND NOT TO BE RELEASED WITHOUT AUTHORIZATION
--- NOTE | 2021-03-16 19:10 | NUR ---
SHIFT REPORT RECEIVED FROM ANASTASIA VEGA. PT UP TO USE BSC AND BACK TO BED. NO OTHER NEEDS. SON IN ROOM. CALL LIGHT IN REACH.
--- NOTE | 2021-03-16 20:50 | NUR ---
ASSESSMENT COMPLETED. PT STATES SHE HAS 5/10 R HIP PAIN, PRN PAIN MED PROVIDED. SCHEDULED MEDS PROVIDED. GCS 15, A&O X4. IV WNL, CDI, FLUSHED WELL. RIGHT HIP BANDAGE ABD DRY AT THIS TIME, SPICA IN PLACE. PT TOLERATING TOE TOUCH 2PA, FWW TO BSC WELL BUT A BIT ANXIOUS, EDUCATION PROVIDED. CMS INTACT, PT STATES SHE NORMALLY HAS NEUROPATHY IN FEET BUT NOT AT THIS TIME. GENERALIZED EDEMA IN RIGHT HIP. LUNGS CLEAR, HEART TONES REGULAR. ABD SOFT, NONTENDER, BOWEL TONES ACTIVE, TOLERATING ORAL INTAKE WELL. SCDs, BRUCE HOSE AND HEEL PROTECTION IN PLACE. SON IN ROOM. ICE WATER PROVIDED. CIWA 4 FOR SWEATING AND ANXIETY. CALL LIGHT IN REACH.
--- NOTE | 2021-03-16 22:22 | NUR ---
PT PAIN 3/10 IN RIGHT HIP. SCHEDULED MEDS PROVIDED WITH APPLESAUCE. PT REPORTS ITCHING, LOTION PROVIDED BY ANDRES ALTMAN.
--- NOTE | 2021-03-17 01:27 | NUR ---
PT CIWA 11. PT REPORTS BEING EXTREMELY ITCHY, SCRATCHING SKIN UNTIL BLEEDING. PT REPORTS SHE HAS NOT SLEPT AT ALL TONIGHT. MD NOTIFIED BY PHONE, STATES HE WILL PUT IN ORDERS.
--- NOTE | 2021-03-17 02:30 | NUR ---
PT REPORTS 6/10 R HIP PAIN, ANXIETY AND ITCHING. PRN ATIVAN PROVIDED. SCHEDULED PAIN MED PROVIDED. ACTICOAT DRESSING SOAKED, ABD PAD HAS SCANT RED DRAINAGE ON IT, SPICA CDI. L AC IV LEAKING, ATTEMPTED TO START NEW IV WITHOUT SUCCESS. L AC IV RE-DRESSED, NO LEAKAGE NOTED WITH SLOW FLUSH. CMS INTACT. CIWA 11. NO OTHER NEEDS AT THIS TIME. CALL LIGHT IN REACH.
--- NOTE | 2021-03-17 05:00 | NUR ---
CIWA 3, MILD ITCHING, MILD ANXIETY. SPICA DRESSING ADJUSTED, SMALL AMOUNT OF RED DISCHARGE ON ABD PAD, CHANGED, PT TOLERATED WELL. PT REPOSITIONED, CMS INTACT. NO OTHER NEEDS AT THIS TIME. CALL LIGHT IN REACH.
--- NOTE | 2021-03-17 06:00 | NUR ---
PT REPORTS 06/05 "ACHE" IN RIGHT HIP. SCHEDULED MEDS PROVIDED. DRESSING ABD AND SPICA DRESSING CDI. CMS INTACT. NO OTHER NEEDS. CALL LIGHT IN REACH.
--- NOTE | 2021-03-17 08:00 | NUR ---
REPORT RECEIVED FROM NIGHT RN AND PT. CARE RESUMED. PT. IS ALERT AND ORIENTED TO ALL. SHE APPEARS DIAPHRETIC AND SLIGHTLY RESTLESS. CIWA SCORE OF 11. PT. REFUSED ATIVAN AT THIS TIME AND REASSESS AFTER MORNING CARE. IV SITE FLUSHES WELL. 02 SAT. WAS 90% ON RA AND PT. ENCOURAGED TO DEEP BREATH. LUNGS CLEAR THROUGHOUT. RIGHT HIP FOAM DRESSING HAS A MODERATE AMOUNT OF SANGUINOUS DRAINAGE, BUT IS NOT LEAKING THROUGH THE OPSITE. PICA DRESSING PLACE. STUDENT NURSE IN THE ROOM TO ASSIST WITH BED BATH AND LINEN CHANGE. PT. LEFT RESTING WITH CALL LIGHT IN REACH.
--- NOTE | 2021-03-17 11:12 | NUR ---
PT ALERT, ORIENTED AND ANITA IN RM. PT ALERT, ADMITTED SHE DID NOT SLEEP WELL. PT MENTIONED ANXIETY MADE IT DIFFICULT TO REST COMFORTABLY. AGAPITO HIGGINBOTHAM IN DOING VS, GAVE BLESSING. WILL FOLLOW
--- NOTE | 2021-03-17 11:32 | NUR ---
ROUNDING ON PT. SHE STATES SHE IS DOING WELL AND DENIES PAIN AT THIS TIME. BROUGHT FRESH ICE WATER. IN THE ROOM.
--- NOTE | 2021-03-17 13:45 | NUR ---
PT. USED CALL LIGHT APPROPRIATELY FOR ASSISTANCE TO THE BEDSIDE COMMODE. PT. HAD DIFFICULTY AMBULATING WITH FWW AND TOE-TOUCH. 2PA NEEDED. DRESSING IS SATURATED, BUT NO LEAKING AND SPIKA DRESSING INTACT. PT. DENIES ANXIETY, ITCHINESS AT THIS TIME. REPORTS PAIN AFTER AMBULATION. SCHEDULED TYLENOL AND TRAMADOL ADMIN. PT. LEFT RESTING WITH CALL LIGHT IN REACH.
--- NOTE | 2021-03-17 14:15 | NUR ---
RECEIVED PHONE CALL FROM PATIENTS SON JULIANNA AROUND 1330 STATING THE FAMILY MET LAST NIGHT AND THEY ARE THINKING PATIENT MIGHT NOT BE ABLE TO GO HOME DIRECTLY THEY ARE FINDING IT HARD TO FIND QUILL MACHINE TENDER CARE FOR HOME AT THIS TIME. HE STATES THEY WILL BE IN THIS AFTERNOON IF I CAN COME TALK WITH THEM. ASKED STAFF NURSES TO LET ME KNOW WHEN FAMILY ARRIVES.
--- NOTE | 2021-03-17 16:22 | NUR ---
SPOKE WITH PATIENT, HER AND SON AND DAUGHTER IN ROOM. I DISCUSSED WITH THE PATIENT HER DISCHARGE PLAN SHE HAD IT CURRENTLY TO GO HOME WITH HELP AT HOME AND HOME HEALTH. ASKED HOW SHE THOUGHT SHE WAS DOING. SHE STATED SHE HADN'T BEEN UP TODAY. ASKED WHY AND SHE STATED "WHEN THEY CAME IN I JUST WASN'T UP TO IT AT THAT TIME". DISCUSSED IMPORTANCE OF WORKING WITH THERAPY WHEN THEY COME IT IS HARD FOR THEM TO COME BACK JUST WHEN PEOPLE FEEL LIKE IT BECAUSE OF THE NUMBER OF PEOPLE THEY HAVE TO SEE. DISCUSSED THAT SHE WILL NEED TO BE ABLE TO MOVE AROUND MORE IF GOING HOME. THIS LED THE FAMILY TO COME INTO CONVERSATION REGARDING HOW THEY FELT ABOUT HER NOT HAVING ENOUGH HELP SOON THEY HAD HOPED. DAUGHTER STATES THEY HAVE AN ASSESSMENT PLANNED FOR HER TO POSSIBLY HIRE HELP WITH LOCAL CAREGIVER AGENCY. BUT SHE STATES THEY WOULD ONLY HAVE AVAILABLE 6HOURS A WEEK AT THIS TIME. THEY DISCUSSED THIS A FAMILY. PATIENT BECAME UPSET AND VERY TEARY. STATES "I KNEW THIS WOULD HAPPEN". ASKED WHAT SHE MEANT. SHE STATES "THAT I WOULD HAVE TO GO TO THE HORRIBLE PLACE". DAUGHTER STATES SHE WAS IN THE LOCAL SHELTER ONCE AFTER A FRACTURED ANKLE. PATIENT STATES "IT WAS SO HORRIBLE". WHEN ASKED EXACTLY WHAT SHE MEANS SHE STATED "THE WHOLE THING". PATIENT THEN SPOKE ABOUT THAT SHE HATES STAYING ANY PLACE BUT HOME. FAMILY WAS VERY SUPPORTIVE. IS VERY QUIET HE IS VERY HARD OF HEARING BUT HE HELD HER HAND AND WAS VISIBLY UPSET THAT SHE WAS SO UPSET. BUT HE AGREED WITH KIDS HE CANNOT PHYSICALLY DO THE CARE HIMSELF. I EXPLAINED TO HER THAT SHE HAS ABSOLUTE CONTROL AND WILL MAKE HER OWN DECISION, BUT THAT SHE NEEDS ALL THE INFORMATION TO CONSIDER. WE DISCUSSED THAT SHE DOESN'T HAVE TO STAY LOCAL, THAT THERE ARE FACILITIES OTHER PLACES TOO. WE DISCUSSED CMS.GOV/COMPARE AND SON WAS ABLE TO PULL THAT UP ON HIS CELL PHONE. I ALSO GAVE THEM A HANDOUT WITH [facility] WITHIN 60 MILES. I DISCUSSED WITH HER THAT SHE DOESN'T HAVE TO GO. AND IF SHE DOES SHE IS FREE TO LEAVE ANY TIME. 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 NOT JUST ONCE A DAY WHEN THERAPY IS THERE. WE TALKED FOR ABOUT AN HOUR. SHE SEEMED LESS UPSET WHEN I LEFT. DAUGHTER CAUGHT ME IN THE BOSS AND STATES "SHE CHECKED HERSELF OUT OF [place], WILL THAT STOP HER FROM GETTING INTO SOMEWHERE?". I ASSURED HER UNLESS SHE DID SOMETHING TO DISRUPT THE FACILITY IT SHOULD NOT BE A PROBLEM. SHE THANKED ME FOR HELPING THEM TALK WITH HER. I CALLED TO SEE IF [facility] IS ACCEPTING PATIENTS, HAD TO LEAVE A MESSAGE ON THEIR VOICEMAIL. I DO NOT SEE ANY CHANCE OF GOING TO ANY FACILITY OVER WEEKEND, EVEN IF THEY CHOOSE ONE ADMITTING OFFICES WILL BE CLOSED AND THEY WILL NOT BE ABLE TO RUN INSURANCE WITHOUT THEM BEING THERE. STAFF UPDATED.
--- NOTE | 2021-03-17 17:39 | NUR ---
ROUNDING ON PT. SHE ASKS FOR ASSISTANCE WITH STRAIGHTENING OUT HER BED. WHILE REPOSITIONING, PT. STATES SHE HAD INCONTINENT VOID. 2PA CHANGING PT. ATTENDS. PT. REPORTS ANXIETY AND ITCHING. ATTRIBUTES ANXIETY LEARNING SHE IS GOING TO [facility] AFTER DISCHARGE FOR REHAB. DRESSING REMAINS UNCHANGED. ADMINISTERED VISTERIL. PT. STATES SHE IS NOT HUNGRY AND DID NOT EAT DINNER. LEFT RESTING IN BED WITH CALL LIGHT IN REACH.
--- NOTE | 2021-03-17 19:10 | NUR ---
SHIFT REPORT RECEIVED FROM ANASTASIA VEGA. PT REPORTS 3/10 PAIN WITH MOVEMENT. BRIEFS CHANGED. ICE PACK PROVIDED. SON IN ROOM. CALL LIGHT IN REACH.
--- NOTE | 2021-03-17 19:29 | NUR ---
FAMILY TO RN STATION, pt REPORTS FEELING WARM. TEMP AFEBRILE, 98.1. ICE PACK AND COOL RAG PROVIDED PER REQUEST, NO FURTHER NEEDS. CALL LIGHT IN REACH. PRIMARY RN JORDANA LYNCH.
--- NOTE | 2021-03-17 20:30 | NUR ---
IN TO ASSIST RN WITH VITALS, NO FURTHER NEEDS
--- NOTE | 2021-03-17 20:56 | NUR ---
ASSESSMENT, VS & I& O COMPLETED. DRESSING ON R HIP ABD PAD AND SPICA CDI. COLD PACK PROVIDED. PT COMPLAINS OF ITCHING, LOTION PROVIDED. IV WNL, CDI, FLUSHED WELL. LUNGS CLEAR, HEART TONES NORMAL. CMS INTACT EXCEPT MILD NUMBNESS TO BOTTOM OF FEET. PT FEELS MILDLY ANXIOUS, EDUCATION PROVIDED. SKIN FRAGILE, SCATTERED BRUISING AND ABRASIONS. GENERALIZED EDEMA IN RIGHT HIP. SON IN ROOM. PT DENIES PAIN WHILE LAYING IN BED. SCHEDULED MEDS PROVIDED. NO OTHER NEEDS. CALL LIGHT IN REACH.
--- NOTE | 2021-03-17 22:26 | NUR ---
SCHEDULED MEDS PROVIDED WITH PUDDING. PT DENIES PAIN AT THIS TIME. NO OTHER NEEDS. SON IN ROOM. CALL LIGHT IN REACH.
--- NOTE | 2021-03-17 23:16 | NUR ---
PT HAS N/V OF ABOUT 50ML AFTER CHANGING BRIEFS. PRN NAUSEA MED PROVIDED. PT FEELS ITCHY AND HAS ANXIETY, PRN MED PROVIDED. NO OTHER NEEDS AT THIS TIME. CALL LIGHT IN REACH.
--- NOTE | 2021-03-18 00:30 | NUR ---
PT RESTING IN BED, EYES CLOSED. CALL LIGHT IN REACH.
--- NOTE | 2021-03-18 02:30 | NUR ---
SCHEDULED MEDS PROVIDED. PT REPORTS 3/10 PAIN WITH MOVEMENT. BRIEFS CHANGED. DRESSING WNL, ABD PAD HAS SMALL AMOUNT OF DARK RED DRAINAGE, SPICA INTACT. ASSESSMENT COMPLETED. CMS INTACT EXCEPT BOTTOM OF FEET NUMBNESS, CHRONIC. BRUISING AND ABRASIONS UNCHANGED. ICE WATER PROVIDED. NO OTHER NEEDS. CALL LIGHT IN REACH.
--- NOTE | 2021-03-18 04:38 | NUR ---
PT RESTING IN BED, CALL LIGHT IN REACH.
--- NOTE | 2021-03-18 06:25 | NUR ---
SCHEDULED MEDS PROVIDED. VS AND I&O COMPLETED. PT UP TO BSC, HEAVY 2PA, FWW. PT DID NOT TOLERATE TRANSFER WELL BUT DID USE BSC WHEN ON IT. MEDS GIVEN WITH PUDDING. NO OTHER NEEDS AT THIS TIME. CALL LIGHT IN REACH.
--- NOTE | 2021-03-18 07:51 | NUR ---
REPORT RECEIVED FROM NIGHT RN AND PT. CARE RESUMED. THIS NURSE ATTEMPTED TO ADMIN. MORNING MEDS BUT PT. REQUESTS TO SLEEP LONGER. WILL RETURN IN AN HOUR.
--- NOTE | 2021-03-18 09:00 | NUR ---
PT. MEDS ADMIN IN PUDDING AND PT. TOLERATED WELL. PT. IS ALERT AND ORIENTED TO ALL. 2PA WITH FWW TO THE COMMODE. PT. HAS DIFFICULTY COORDINATING MOVEMENTS. VOIDED. SATURATED ACTICOAT DRESSING CHANGED, AREA CLEANED WITH ALCOHOL AND ACTICOAT REPLACED. NO NEW DRAINAGE NOTED DURING CHANGE. СВЕТЛАНА INTACT AND NO REDNESS NOTED AROUND THE SITE. +1 1 EDEMA PRESENT AROUND THE SITE. PT. ASSISTED BACK TO BED AND HELPED WITH REPOSITIONING. SHE REPORTS 4/10 WHEN MOVING LEG. NORCO ADMIN. POOR APPETITE AND PT. ATE ONLY PUDDING WITH HER MEDS INSTEAD OF BREAKFAST. BP ELEVATED AND NOTIFIED. ZESTRIL ORDERED. DISCUSSED POC AND SAFETY. IN THE ROOM. CALL LIGHT IN REACH.
--- NOTE | 2021-03-18 11:19 | NUR ---
PT. REPORTS 02/03 RT. HIP PAIN THAT IS STABBING AFTER P.T. ADMIN. 1 NORCO TAB. PT. TOOK TAB CUT WITH PUDDING. ASSISTED WITH REPOSITIONING. DISCUSSED NUTRITION AND ENCOURAGED PROTEIN INTAKE. LEFT RESTING WITH DAUGHTER AT BEDSIDE.
--- NOTE | 2021-03-18 14:23 | NUR ---
THIS RN RECEIVED REPORT FROM ANASTASIA VEGA. THIS RN TO ASSUME CARE OF PT AT THIS TIME. PT APPEARS TO BE DOING GOOD AT THIS TIME WITH MINIMAL PAIN BUT STATES THAT SHE IS TIRED FROM WORKING WITH PHYSICAL THERAPY.
--- NOTE | 2021-03-18 14:30 | NUR ---
THIS RN IN PTS ROOM TO GIVE SCHEDULED MEDS. PT NOT WANTING TYLENOL DUE TO IT BEING MORE DIFFICULT TO SWALLOW.
--- NOTE | 2021-03-18 16:55 | NUR ---
IN PTS ROOM PER REQUEST DUE TO PT NEEDING TO USE RESTROOM- IN SHORT TIME FOR STAFF TO GO INTO ROOM PT STATED THAT SHE HAD SCOOTED HERSELF UP AND WAS INCONTINENT OF URINE. THIS RN AND KRYSTIN RN PROVIDED PT WITH PERICARE AND CHANGED PADS. PT BACK TO COMFORTABLE POSITION
--- NOTE | 2021-03-18 17:52 | NUR ---
PT WITH ELEVATED BLOOD PRESSURE. DR SWEET NOTIFED. AWAITING ORDERS NOW.
--- NOTE | 2021-03-18 18:20 | NUR ---
HTIS RN IN PTS ROOM TO GIVE THE HYDRALIZE UPPED DOSE EARLY DUE TO PTS HIGH BP. THIS RN ALSO OFFERED PT VISTARIL FOR POSSIBLE ANXIETY- PT STATED THAT SHE WAS HAVING SOME AT THIS TIME. PACHECO PROVIDED ON SCHEUDLE FOR PTS PAIN.
--- NOTE | 2021-03-18 19:00 | NUR ---
SHIFT REPORT RECEIVED FROM REJI VEGA. PT UP TO BSC, 2PA, PT DID NOT TOLERATE WELL, BECOMES ANXIOUS DURING TRANSFER. DRESSING HAS 25% SHADOWING ON RIGHT HIP. NO OTHER NEEDS. CALL LIGHT IN REACH.
--- NOTE | 2021-03-18 19:35 | NUR ---
IN ROOM WITH PRIMARY RN JORDANA TO ASSIST pt FROM BSC BACK TO BED. pt HEAVY 2PA WITH FWW. pt ANXIOUS AND VERBALIZES INABILITY TO AMBULATE, pt REQUIRES ENCOURAGEMENT AND REDIRECTION AND PROVIDED WITH VERBAL INSTRUCTIONS ON SAFE AMBULATION. pt BOOSTED IN BED AND ROOM TIDIED. CALL LIGHT IN REACH.
--- NOTE | 2021-03-18 20:01 | NUR ---
PT REPORTS 8/10 RIGHT HIP PAIN, SHOOTING AND ACHING, PRN PAIN MED PROVIDED. ICE WATER PROVIDED. CALL LIGHT IN REACH.
--- NOTE | 2021-03-18 21:19 | NUR ---
ASSESSMENT, VS AND I&O COMPLETED. RIGHT HIP PAIN 08/03, ICE PACK PROVIDED. SCHEDULED MEDS PROVIDED. DRESSING WNL, 25% SHADOWING. GENERALIZED EDEMA IN RIGHT THIGH/HIP. LUNGS CLEAR, HEART TONES REGULAR. THERAPUTIC CCOMMUNICATION PROVIDED FOR ANXIETY. CMS INTACT EXCEPT CHRONIC NUMBNESS IN THE BOTTOM OF BOTH FEET. PT HAS NO IV. SCATTERED BRUISING AND ABRASIONS NOTED. 2 RIGHT ELBOW ABRASIONS COVERED WITH ALLEVYN. ICE WATER AND PUDDING PROVIDED. NO OTHER NEEDS. CALL LIGHT IN REACH.
--- NOTE | 2021-03-18 22:21 | NUR ---
PT R HIP PAIN 07/06, SCHEDULED MED PROVIDED. NO OTHER NEEDS. CALL LIGHT IN REACH.
--- NOTE | 2021-03-19 | NUR ---
PT RESTING IN BED, CALL LIGHT IN REACH.
--- NOTE | 2021-03-19 02:34 | NUR ---
ASSESSMENT COMPLETED. VS COMPLETED, SCHEDULED MEDS PROVIDED. R HIP PAIN 08/03, ICE PACK PROVIDED. DRESSING INTACT, NO CHANGES. CMS INTACT EXCEPT CHRONIC NUMBNESS ON BOTTOM OF FEET. ICE WATER PROVIDED. SCDs, BRUCE HOSE AND HEEL PROTECTION IN PLACE. NO OTHER NEEDS. CALL LIGHT IN REACH.
--- NOTE | 2021-03-19 04:00 | NUR ---
PT RESTING IN BED. CALL LIGHT IN REACH.
--- NOTE | 2021-03-19 06:03 | NUR ---
VS AND I&O COMPLETED. SCHEDULED MEDS PROVIDED. PT DENIES PAIN AT THIS TIME. BRIEFS CHANGED. DRESSING SLIGHTLY MORE SS DRAINAGE.ICE WATER AND PUDDING PROVIDED. NO OTHER NEEDS AT THIS TIME. CALL LIGHT IN REACH.
--- NOTE | 2021-03-19 07:22 | NUR ---
this rn recieved report from ever harris. pt appears to be resting
--- NOTE | 2021-03-19 08:30 | NUR ---
THIS RN IN PTS ROOM. PT UP TO CHAIR BY THE RECYCLING DIRECTOR'S. PT STATES THAT SHE IS NAUSEOUS. THIS RN PROVIDED PT WITH 4MG ZOFRAN. PT REQUESTING TO TAKE MEDS AFTER A BIT
--- NOTE | 2021-03-19 08:38 | NUR ---
PT RESTING IN BED. UPDATED WHITE BOARD. PT ACCEPTED [facility] FOR FACE. THIS CLOUD SOFTWARE ENGINEER AND CLOUD SOFTWARE ENGINEER ROSIO AMBULATED PT TO CHAIR. PT WAS VERY AGITATED AND AFRAID WE MIGHT DROP HER. PT WAS SAFELY AMBULATED TO CHAIR USING WALKER AND GAIT BELT. SET PT UP WITH BREAKFAST TRAY. REMADE BED. DURING THE PROCESS OF AMBULATING, A SCAB ON PTS KNEE BROKE OPEN FROM RUBBING AGAINST SCD'S EDGE. GARY MENDOZA NOTIFIED. PT COMPLAINING OF NAUSEA AND PAIN. PT REQUESTED MEDICATIONS FOR NAUSEA AND PAIN. GARY MENDOZA NOTIFIED. CALL LIGHT WITHIN REACH, NO FURTHER NEEDS AT THIS TIME. GAVE PT AN ENEMESIS BAG IN CASE OF VOMIT.
--- NOTE | 2021-03-19 09:10 | NUR ---
THIS RN IN PTS ROOM TO GIVE THE REST OF PTS MORNING MEDS.
--- NOTE | 2021-03-19 09:30 | NUR ---
THIS RN BACK IN PTS ROOM PER PT REQUEST DUE TO PT STATING SHE NEEDED TO USE THE COMMODE. THIS RN WITH ROSIO ALTMAN GOT PT TO COMMODE. WHILE PT WAS GETTING UP SHE IMMEDIATELY STATED "IM GANNA FALL" THIS RN COACHED PT TO COMMODE. PT KEPT WANTING TO SIT DOWN WHEN IT WAS NOT SAFE TO DO SO. STAFF HAD PT WELL BALNACED WITH THE GAIT BELT. PT KEPT PUSHING WALKER AWAY AND ATTEMPTING TO GRAB THE BED. THIS RN EDUCATED ABOUT HOW THAT WAS MORE UNSAFE. THIS RN ABLE TO KEEP PTS WALKER UNDER HER BY PUTTING FOOT IN THE WAY OF THE WHEEL. PT MADE IT TO THE COMMODE AND THEN STATED "I DON'T HAVE TO GO NOW, THAT WAS JUST TOO MUCH" PT ON COMMODE WITH CALL LIGHT WITHIN REACH THIS RN BACK IN PTS ROOM WITH ANASTASIA RN TO GET PT BACK TO BED. THIS RN INSTRUCTED PT HOW SHE WAS GOING TO GET UP AND MOVE- REASSURED PT THAT SHE WAS SAFE. DESPITE THIS PEP TALK PT WHEN SHE WAS STOOD UP WITH GAIT BELT STATED "IM GOING TO FALL" AND CRIED OUT IN PAIN MULTIPLE TIMES. PT BACK TO BED WITH CALL LIGHT WITHIN REACH. PILLOWS PROVIDED FOR COMFORT. DR. SAMAYOA IN PTS ROOM AT THIS TIME
--- NOTE | 2021-03-19 11:11 | NUR ---
PATIENT GIVEN ONE TIME DOSE OF 5MG OXYCODONE. PATIENT RATES PAIN 10/10 AT THIS TIME IN RIGHT HIP.
--- NOTE | 2021-03-19 11:13 | NUR ---
GARY MENDOZA NOTIFIED OF NO OUTPUT
--- NOTE | 2021-03-19 12:25 | NUR ---
PT REFUSED BEDBATH/SHOWER
--- NOTE | 2021-03-19 12:45 | NUR ---
PT REPORTED 10/10PAIN WITH PHYSICAL THERAPY. THIS RN IN PTS ROOM TO CHECK ON PT- PT STATES THAT IT IS GETTING BETTER AND THAT XIN EDUCATED HER ON THE PAIN SCALE.
--- NOTE | 2021-03-19 13:22 | NUR ---
PT IN BED. JUST LEFT. GARY MENDOZA NOTIFIED OF HIGH BP. PT COMPLAINING OF PAIN. PT CURRENTLY SIPPING ON ENSURE. WILL COME BACK FOR I&O'S LATER. CALL LIGHT WITHIN REACH, NO FURTHER NEEDS AT THIS TIME.
--- NOTE | 2021-03-19 13:45 | NUR ---
THIS RN IN PTS ROOM WITH JULIÁN ALTMAN PER PT REQUEST DUE TO PT STATING THAT SHE WAS INCONTINENT OF BM. PT HAD A SMALL BM AND THEN RELEASED SOME GAS. STAFF PLACED PT BEDPAN- PT THEN PROCEDDED TO HAVE AN XLARGE BM. ROSIO ALTMAN AND THIS RN CHANGED PTS LINENS AND CLEANED UP PT. PT HARDLY TOLERATED THE TURNING REQUIRED TO CLEAN HER UP. AFTER GETTING PT TURNED THIS RN NOTED SLIGHT DRAINAGE FROM PTS SURGIACAL SITE.
--- NOTE | 2021-03-19 18:40 | NUR ---
PT WAS INCONTINENT. PT REFUSED PM/ORAL CARE
--- NOTE | 2021-03-19 19:57 | NUR ---
pT AWAKE, ALERT AND ORIENTED, PLEASNT. ON ROOM AIR, CLEAR LUNGS, BRUISED AMRS AND LEGS, R OPTICOT DRESSING WITH OLD AND FRESH DRAINAGE. TRACE EDEMA TO R HIP, DECLINES SCDS IN R LEG, SCDS L LEG ON, DECLINES HEEL PROTECTORS, ALLEVYN DRESSING TO BOTH ELBOW AREAS. TOLERATING FLUIDS WELL, ATTGENDS IN PLACE, CALL LIHGT AT HNADS REACH, REPOSITIONED. COOPERATIVE. NO IV SITE
--- NOTE | 2021-03-19 21:35 | NUR ---
awake, pleasant. R hip dressing with old and new discharge. given ultram scheduled per r hip pain, cooperative. no c/o h/a or cp
--- NOTE | 2021-03-20 00:43 | NUR ---
was incontinent of urine, skin care, clean attends in place, c/o 11/03 r hip pain, medicated with 1 norco, scds , gabrielle hose in place, declines heel protectors, tolerated well, dressing r hip saturated
--- NOTE | 2021-03-20 00:58 | NUR ---
ANSWERED PT CALL LIGHT, PT ASKED FOR ICE PACK. ICE PACK PROVIDED WITH RN APPROVAL. CALL LIGHT WITHIN REACH. NO FUTHER ASSISTANCE NEEDED AT THIS TIME.
--- NOTE | 2021-03-20 02:01 | NUR ---
awakes easily, coop with assessment, R hip dressing saturated, area tender edema, tedhose, scds and heel protectors in place. On room air. medicated with scheduled Ultram and metropolos scheduled. Denies c/o lightheadness
--- NOTE | 2021-03-20 04:27 | NUR ---
resting, eyes closed, no distress, call light and fluids at bedside, scds in place, tedhose and heel protectors
--- NOTE | 2021-03-20 06:26 | NUR ---
Pt on room air, clear lungs, tolerating diet and fluids well. bruising over arms and legs healing, allevyn to R elbow and knee area, R HIP Opticot saturated w ss old drainage. edema to area, tender, Has been medicated with scheduled Ultram, has declines scheduled Tylenol,. Has received prn NorcoX2 per pain effective. scds, gabrielle hose and heel protectors in place Has been incontinent of urine and bowel. skin care, barrier cream clean attends in place,with turning and repositioning. uses call light. BP 187/71, received PRN Aprezoline po. denies c/o h/a or flashing lights. MD aware of pts high BP since admit.
--- NOTE | 2021-03-20 06:32 | NUR ---
Patient said she would like to sleep for a while longer.
--- NOTE | 2021-03-20 07:28 | NUR ---
this rn received report from mariam harris.
--- NOTE | 2021-03-20 08:50 | NUR ---
PATIENT IS RESTING IN BED. WHITE BOARD UPDATED. SHE DOES NOT FEEL LIKE EATING BREAKFAST RIGHT NOW. PATIENT RECIEVED FRESH ICE PACK. SHE DOES NOT NEED ANYTHING ELSE AT THIS TIME. CALL LIGHT IN REACH.
--- NOTE | 2021-03-20 09:15 | NUR ---
THIS RN IN PTS ROOM TO GIVE PT MORNING MEDS. PT STATES THAT SHE HAS CONCERNS LEAVING AFTER HAVING BLOOD PRESSURE ISSUES. THIS RN DISCUSSED WITH PT THAT WE ARE TWEAKING MEDS SO SHE WILL BE OKAY TO GO TO A FACILITY. THIS RN PROVIDED PT WITH HER TRAMADOL AND A NORCO PRN SO SHE CAN FULLY PARTICIPATE IN PHYSICAL THERAPY LATER
--- NOTE | 2021-03-20 10:00 | NUR ---
SPOKE WITH PATIENT IN ROOM. PATIENT IS AWAKE, ALERT. PATIENT REMEMBERS ME MEETING WITH THEM ON SATURDAY. ASKED IF SHE HAS MADE ANY DECISIONS. SHE STATES SHE IS AGREEING SHE NEEDS REHAB FOR NOW. SHE STATES SHE REALLY DOESN'T WANT TO LEAVE TOWN AND WANTS TO TRY [facility]. SHE STATES SHE UNDERSTANDS THAT THEY WILL HAVE TO AGREE SHE WENT AMA LAST TIME SHE WAS THERE. SHE STATES "I WAS IN A DIFFERNT FRAME OF MIND". DISCUSSED SHE NEEDS TO WORK WITH THERAPY EACH TIME THEY COME IN. SHE STATES SHE WILL AND UNDERSTANDS HER HARD WORK WITH MEAN SHE WILL BE HOME SOONER. DISCUSSED I WILL CONTACT [facility] AND WILL LET HER KNOW.
--- NOTE | 2021-03-20 10:15 | NUR ---
TEXTED ROMI AND FAXED CHART. GURVINDER STATES SHE WILL GIVE TO NURSING. DISCUSSED THAT SHE WOULD BE READY TO GO TODAY OR TOMORROW. SHE STATES THEY WILL HAVE TO GET PERMISSION FROM [facility] DUE TO HER AMA LAST TIME. SHE WILL LET US KNOW.
--- NOTE | 2021-03-20 12:56 | NUR ---
UPDATED DR SAMAYOA ON DISCHARGE STATUS.
--- NOTE | 2021-03-20 13:00 | NUR ---
THIS RN IN PTS ROOM PER PT REQUEST DUE TO PT STATING THAT SHE WAS INCONTINENT OF URINE. PT ABLE TO ROLL AND BE CHANGED. PT STATES PAIN GOT WORSE- PAIN MEDS DUE SOON.
--- NOTE | 2021-03-20 13:15 | NUR ---
this rn in pts room to give pt schedule toradol and prn norco at this time.
--- NOTE | 2021-03-20 13:19 | NUR ---
PT DISCOURAGED, SHARED WITH ME SHE WILL BE GOING TO [place] FOR REHAB. GAVE PT ENCOURAGEMENT, WORKED TO HELP PT SEE THE BENEFIT PT ALERT, ORIENTED AND HAD JUST FINISHED WITH Ngozi QUISPE AND WAS RESTING. PT MENTIONED SHE WAS ABLE TO GET SOME SLEEP LAST NIGHT, BUT I COULD TELL SHE HAD SOMETHING ON HER MIND. PT BEGAN TO INFORM ME THAT SHE IS GOING TO [place] FOR HER REHAB RATHER THAN HOME.SHE SAID SHE WILL TRY TO MAKE THE BEST OFTIME SHE WILL BE THERE. SHE SAID SHE WILL BE IN [place] FOR THE FIRST 14 DAYS. HOPES SHE CAN HAVE A RM WITH AN OUTSIDE WINDOW. GAVE PT ENCOURAGEMENT, ANITA IN TO VISIT. PT REQUESTED PRAYER, WILL FOLLOW
--- NOTE | 2021-03-20 13:29 | NUR ---
GURVINDER FROM [facility] CALLED AND THEY NEED TO VERIFY SECONDARY INSURANCE BUT THEY POSSIBLY CAN TAKE PATIENT TOMORROW. CALLED ADMITTING TO DISCUSSED VERIFICATION, RUDY WILL CHECK ON THIS.
--- NOTE | 2021-03-20 14:25 | NUR ---
SECONDARY INSURANCE VERIFIED, COPY FAXED TO GURVINDER AT [facility]. ALSO PATIENT STATES HER DATES OF [place] WERE IN JULY AND AUGUST THIS YEAR. INFO GIVEN TO T. DISCUSSED WITH HER THAT THEY HAVE ACCEPTED HER AND DISCHARGE WILL LIKELY BE TOMORROW.
--- NOTE | 2021-03-20 17:30 | NUR ---
THIS RN IN PTS ROOM WITH ELO RN TO CHANGE PTS DRESSING AT THIS TIME PER INSTRUCTION FROM DUE TO SLIGHT DRAINAGED NOTED COMING OUT OF DRESSING THIS AM
--- NOTE | 2021-03-20 19:23 | NUR ---
REPORT RECEIVED FROM GARY MENDOZA. pt RESTING IN BED AWAKE RNS ENTER ROOM. WATCHING FOOTBALL GAME. NO REQUESTS AT THIS TIME.
--- NOTE | 2021-03-20 20:10 | NUR ---
pt INCONTINENT OF URINE, ATTENDS CHANGED. 2PA TO REPOSITION IN BED. SCANT SEROUS DRAINAGE ON RIGHT HIP DRESSING. CSM INTACT, CHRONIC TINGLING. pt RATES PAIN 6/10 WITH MOVEMENT "SHOOTS DOWN LEG". PRN PAIN MEDICATION ADMINISTERED. MANUAL BP 198/78, NOTIFIED. SCHEDULED BP MEDS ADMINISTERED AT THIS TIME. NO NEW ORDERS. CALL LIGHT IN REACH.
--- NOTE | 2021-03-20 20:56 | NUR ---
BP REASSESSED, 162/65 (81). pt RESTING IN BED. NO NEEDS AT THIS TIME.
--- NOTE | 2021-03-20 21:01 | NUR ---
RECEIVED IN REPORT FROM RN DAY CHARGE, THAT PT XARELTO WAS BEING HELD X [address] SAMAYOA, AND RECEIVED PHONE CALL FROM DAY RNREJI THAT SHE HAD NOT PASSED THIS ALONG TO PT PRIMARY RN RENAN. THIS RN PUT HOLD ON XARELTO X 2 DAYS.
--- NOTE | 2021-03-20 23:37 | NUR ---
IN pt ROOM FOR SCHEDULED MEDICATION ADMINISTRATION. pt REFUSES TYLENOL ADMINISTRATION. RATES PAIN 5/10 IN RIGHT HIP. PRN NORCO ADMINISTERED REQUESTED FOR PAIN CONTROL. ICE PACK IN PLACE. pt INCONTINENT OF LARGE VOID. ATTENDS CHANGED. REPOSITIONED IN BED. CALL LIGHT IN REACH. BRUCE CHATTERJEE, SCDS ON.
--- NOTE | 2021-03-21 02:34 | NUR ---
Patient was assisted with nora care, 2PA. Patient is assistive by holding onto the bed handles while being rolled for cleaning an incontinent urine output. A warm blanket was given to the patient and the patient helped by unfolding the upper portion.
--- NOTE | 2021-03-21 02:45 | NUR ---
IN pt ROOM FOR SCHEDULED PAIN MEDICATION. pt RATES PAIN 5/10 IN RIGHT HIP WITH MOVEMENT AFTER RN AND EXTERMINATION INSPECTOR CHANGED pt ATTENDS. ASSESSMENT COMPLETE. DRESSING WITH SEROSANGUINOUS DRAINAGE SATURATING 3/4 OF DRESSING. BRUISING UNCHANGED ON RIGHT HIP. pt STATES CSM UNCHANGED. STRONG PEDAL PULSES BILATERALLY. BRUCE HOSE AND SCDS ON. CALL LIGHT IN REACH.
--- NOTE | 2021-03-21 04:52 | NUR ---
CHECKED ON pt. RESTING IN BED WITH EYES CLOSED. NO DISTRESS NOTED. LIGHTS OFF IN ROOM.
--- NOTE | 2021-03-21 06:45 | NUR ---
pt SLEEPING AWAKENS TO VOICE. BP ELEVATED, PRN MEDICATION ADMINISTERED. PRN PAIN MEDICATION ADMINISTERED, pt C/O PAIN WITH MOVEMENT 10/03. INCONTINENT OF URINE, ATTENDS CHANGED. NEW ICE PACK TO RIGHT HIP. SCDS, BRUCE HOSE IN PLACE. WARM BLANKET PROVIDED. LIGHTS OFF IN ROOM.
--- NOTE | 2021-03-21 07:15 | NUR ---
Report received from Juliann VEGA. Pt resting in bed with no needs at this time. Will continue plan of care.
--- NOTE | 2021-03-21 07:59 | NUR ---
Discussed plan of care with patient who is agreeable. Pt sitting up in bed, declines moving to chair at this time but agrees to work with physical therapy later in day. Pt expresses concern regarding trending blood pressures. Will return shortly with scheduled medications
--- NOTE | 2021-03-21 08:40 | NUR ---
Scheduled medications administered, assessment complete. Pt BP WNL, pt states feeling "better" about potentially being discharged to [place], pt agreeable.
--- NOTE | 2021-03-21 08:48 | NUR ---
COVID SWAB OBTAINED , SENT TO IN-HOUSE LAB, NO COMPLICATIONS
--- NOTE | 2021-03-21 08:50 | NUR ---
Spoke with Lissette. She plans on going to a SNF today. She states she does not have clothing as her has not brought in. She denies other needs. Covid swab was completed earlier today. I will contact Dr. Stringer to check if he wants orders faxed to him for [facility].
--- NOTE | 2021-03-21 10:00 | NUR ---
Scheduled tramadol administered. Pt able to roll to change attends, large urine incontinence. Actecote dressing to R hip replaced as it is noted to be leaking serous fluid, tanvir intact, incision well approximated. Large bruise noted to area. Pt tolerates rolling well.
--- NOTE | 2021-03-21 10:00 | NUR ---
Called and scheduled [facility] for transport, their only opening today is at 1 pm and I happily took it. Texted Tessa at [facility] and requested they put a wc out and the transport van will pear picker at 12:45. [id number] Recieved completed SNF orders from Dr. Stringer and faxed orders, covid neg swab, med list, ortho prog notes, PT prog notes, copy of vaccination card.
--- NOTE | 2021-03-21 11:00 | NUR ---
Updated pt about dc, she has questions about isolation and having a room with a window. Texted Tessa, let Lissette I may not have answers before she leaves. Spouse is here and forgot to bring pt any clothing.
--- NOTE | 2021-03-21 12:16 | NUR ---
CHECKING ON PT-P.T. IN WITH HER. GAVE ENCOURAGEMENT. WILL CHECK BACK
--- NOTE | 2021-03-21 12:43 | NUR ---
Pt dressed, all belongings returned, attends changed. Dressing to R hip C/D/I. Dr Stringer gives order for discharge, updated on patient's leaving.
--- NOTE | 2021-03-21 13:27 | NUR ---
Report called to [facility], all questions answered. Pt discharged via wheelchair van. VSS, A+O. Discharge teaching provided and paperwork sent. All belongings returned.
--- NOTE | 2021-03-27 07:15 | DS ---
[facility] [address] [place], [place] [address] Signed ADMISSION DATE: 03/15/2021 DISCHARGE DATE: 03/21/2021 ADMISSION DIAGNOSIS: Right hip fracture. DISCHARGE DIAGNOSIS: Right hip fracture. PROCEDURE PERFORMED DURING THIS HOSPITALIZATION: Open reduction and internal fixation of right hip. BRIEF HISTORY: Lissette is a 75-year-old female, who suffered a ground level fall the day before admission. She eventually was taken to the ER, where radiographs showed a nondisplaced intertrochanteric hip fracture. She was admitted to my service and risks and benefits of operative treatment were discussed with her. Once medical clearance was obtained, she was taken to the operating room and underwent the above-named procedure that afternoon. She tolerated well and was taken to the recovery room and subsequently to orthopedic floor. She was relatively good with pain control throughout on [place] 7.5. DVT prophylaxis of SCDs, TEDs, and Xarelto 10 mg p.o. daily was undertaken. She was mobilized with physical therapy, toe-touch weightbearing on the right lower extremity. Initially, she was demanding to go home; however, her family did not think they could take care of her, and eventually she was excepted the nursing facility on Saturday. She will be continued on her current medications and weight restrictions. She will follow up with me in 7-10 days for staple removal. She will notify me sooner if she has any troubles. Lee Stringer MD BA/MICHELINE /[id number] Copies: Electronically Signed By: LEE STRINGER MD 03/27/21 0715 PATIENT NAME: LISSETTE BRIAN DISCHARGE SUMMARY DATE OF : 47 REPORT #: [id number] PHYSICIAN: LEE STRINGER MD PCP: ANN MARIE RABAGO MD REPORT IS CONFIDENTIAL AND NOT TO BE RELEASED WITHOUT AUTHORIZATION [address] [place], [place] [address] Signed ~ Electronically Signed By: LEE STRINGER MD 03/27/21714 PATIENT NAME: LISSETET BRIAN DISCHARGE SUMMARY DATE OF : 47 REPORT #: [id number] PHYSICIAN: LEE STRINGER MD PCP: ANN MARIE RABAGO MD REPORT IS CONFIDENTIAL AND NOT TO BE RELEASED WITHOUT AUTHORIZATION
== END 2021-03-21 13:10 | disposition home or self-care (01) | DRG 482 ==
LOC: ED 11:23 → MS 17:33
PROVIDERS: ADMIT Specialist; ATTEND Specialist
PROC: 3E0T3BZ Introduction of Anesthetic Agent into Peripheral Nerves and Plexi, Percutaneous Approach (ICD-10-PCS; 2021-03-15)
PROC: 0QS604Z Reposition Right Upper Femur with Internal Fixation Device, Open Approach (ICD-10-PCS; principal; 2021-03-15 18:25)
DX: S72.141A Displaced intertrochanteric fracture of right femur, initial encounter for closed fracture (principal); W18.30XA Fall on same level, unspecified, initial encounter; I10 Essential (primary) hypertension; Z20.822 Contact with and (suspected) exposure to COVID-19; K21.9 Gastro-esophageal reflux disease without esophagitis; F32.A Depression, unspecified; Z98.890 Other specified postprocedural states; Z88.8 Allergy status to other drugs, medicaments and biological substances; Z88.5 Allergy status to narcotic agent; Z88.0 Allergy status to penicillin; Z79.82 Long term (current) use of aspirin; Z79.899 Other long term (current) drug therapy; F41.9 Anxiety disorder, unspecified; F10.20 Alcohol dependence, uncomplicated
CPT/HCPCS: 01210; 64447; 71045; 72192; 73502; 76942; 80048; 80053; 85025; 93005; 93010; 96374; 96375; 96376; 97110; 97162; 97530; 99285-25; A9270; C1713; C9803; J0131; J0690; J0735; J1100; J1885; J2001; J2060; J2250; J2274; J2405; J2704; J2765; J3010; J7040; J7121; Q0177; U0003

== ENCOUNTER 2022-01-09 10:01 | Emergency (ER) | payer MEDICARE ==
[~2022-01-09] VITALS: Ht 160 cm; Wt 73.5 kg
[~2022-01-09 10:01] MED LIST changes: +BAYER CHEWABLE81 MG PO; +LISINOPRIL10 MG PO
== END 2022-01-09 13:47 | disposition home or self-care (01) ==
LOC: ED 10:01
DX: R04.0 Epistaxis (principal); I10 Essential (primary) hypertension; K21.9 Gastro-esophageal reflux disease without esophagitis; Z88.0 Allergy status to penicillin; Z88.5 Allergy status to narcotic agent; Z88.6 Allergy status to analgesic agent; Z88.8 Allergy status to other drugs, medicaments and biological substances; Z79.899 Other long term (current) drug therapy; Z79.82 Long term (current) use of aspirin
CPT/HCPCS: 30903; 99283-25

== ENCOUNTER 2022-05-22 09:01 | Emergency (ER) | payer MEDICARE, OTHER ==
[~2022-05-22] VITALS: Ht 160 cm; Wt 73.5 kg
== END 2022-05-22 11:05 | disposition home or self-care (01) ==
LOC: ED 09:01
DX: H53.9 Unspecified visual disturbance (principal); I10 Essential (primary) hypertension; K21.9 Gastro-esophageal reflux disease without esophagitis; Z88.5 Allergy status to narcotic agent; Z88.0 Allergy status to penicillin; Z79.899 Other long term (current) drug therapy; Z79.82 Long term (current) use of aspirin
CPT/HCPCS: 99283

== ENCOUNTER 2023-05-06 00:10 | Inpatient (IN) | payer MEDICARE, OTHER ==
[2023-05-06] VITALS (7 sets, daily range): BP systolic 125–149; BP diastolic 53–77
[~2023-05-06] VITALS: Ht 160 cm; Wt 86.8 kg
[2023-05-06 02:04] LABS: BASOPHILS 0.2 % (0-2); EOSINOPHILS 0.7 % (0-6); HEMATOCRIT 36.3 % (35.0-50.0); HEMOGLOBIN 11.6 g/dL (12.0-18.0); LYMPHOCYTES 12.6 % (24-44); MCH 26.6 (27-36); MCHC 31.9 g/dl (30-36); MCV 83.4 fl (81-99); MONOCYTES 4.1 % (0-12); NEUTROPHILS 82.4 % (39-80); PLATELET COUNT 224 K/uL (140-440); RBC 4.35 M/ul (4.3-5.7); RDW 15.7 (10.5-15.0)
[2023-05-06 02:29] LABS: ALBUMIN 3.1 g/dL (3.4-5.0); ANION GAP 10.1 (7-21); BILIRUBIN, TOTAL 0.7 ng/dL (0.2-1.0); BUN/CREATININE RATIO 25.53 (6.0-28.6); CALCIUM 8.3 mg/dL (8.5-10.1); CREATININE, SERUM 0.94 mg/dL (0.55-1.02); POTASSIUM 4.1 mmol/L (3.5-5.1); PROTEIN, TOTAL 6.2 g/dL (6.4-8.2)
--- NOTE | 2023-05-06 05:52 | EKG ---
[facility] [address] [facility] [place], [place] [address] Signed Sinus rhythm with 1st degree AV block Otherwise normal ECG When compared with ECG of 15-MAR-2021 16:31, first degree av block now present Confirmed by BEN DIAZ MD ([id number]) on 05/06/2023 5:51:49 AM Electronically Signed By: BEN DIAZ 05/06/23 0552 PATIENT NAME: ROCLIV ELLEN Electrocardiogram DATE OF : 47 PHYSICIAN: BEN DIAZ REPORT #: [id number] REPORT IS CONFIDENTIAL AND NOT TO BE RELEASED WITHOUT AUTHORIZATION
[2023-05-06 05:59] LABS: INR 1.09 (0.80-1.30); PROTIME 13.6 Sec (11.2-14.2)
[2023-05-06 06:17] LABS: BILIRUBIN, URINE NEGATIVE (negative); BLOOD/HGB, URINE NEGATIVE (Negative); KETONE, URINE SMALL (Negative); LEUK ESTERASE, URINE SMALL (negative); NITRITE, URINE POSITIVE (negative); PH, URINE 7.5 (5-7)
[2023-05-06 06:37] LABS: RED BLOOD CELLS, URINE 0-1 /hpf (0-5)
[2023-05-06 06:38] LABS: BACTERIA, URINE 3+ /hpf (negative); CASTS, URINE NONE SEEN \\lpf; COLLECTION TYPE, URINE CLEAN CATCH; CRYSTALS, URINE TRIPLE PHOSPHATE 1+ (0-1+); EPITHELIAL CELLS, URINE OCCASIONAL /lpf (0-1+)
[2023-05-06 06:39] LABS: REFLEX CULTURE, URINE Yes (No)
--- NOTE | 2023-05-06 07:15 | NUR ---
Pt report received from GARY Berger. Pt is awake, supine in bed, family/friend in room. Pt requests mouth swab for dry mouth and this was provided to her. Pt denies pain currently. IV fluids running (LR @ 100ml/hr) per emar. Call light in reach. Denies further needs at this time.
--- NOTE | 2023-05-06 07:49 | NUR ---
PT ADMITTED TO ROOM 123 FROM ED at 0655. A/O, STATES SHE FELL GETTING PEPSI IN GARAGE, HAD TO SCOOT INTO THE HOUSE, AND RETRIVE HER ALERT NECKLACE. NORMALLY RA, BUT ON 2L; WITH ASSIST OF 4 STAFF PT WAS SLID OVER WITH SIDE SHEET. TOLERATED WELL. FULLY DRESSED, ABLE TO REMOVE SOILED WET PANTS, UNDERWEAR AND INCONT PADS WITH SMALL AMOUNT OF PAIN. ODOROUS, PERICARE WAS GIVEN, FRESH PURWICK IN PLACE. IV FLUIDS STARTED, PER MARS. BOTH LEGS SUPPORTED WITH PILLOW; BENT FOR COMFORT. AGAPITO HERNADEZ EDUCATED PT BODY REPAIRER LIGHT, PT FAMILAR WELL, PREVIOUS PT HERE, KNOWN TO STAFF. THIS RN RECEIVED REPORT FROM PAM, ED AT THE ITME PT WAS ADMITTED. PT STATED THAT SHE HAS NO KNOWN SKIN ISSUES AT THIS TIME.
--- NOTE | 2023-05-06 10:10 | NUR ---
Spoke with pt and her daughter, Lissette. Pt fell with nondisplaced fx and will go to surgery shortly. Pt cont to live in her home with multiple pieces of DME. Her spouse, Ruben, in January. Pt does not want placement and daughter states she and her brother will move in and care for her. They deny need for any other DME. There are no financial issues. Pt plans on dc to home when cleared medically by Dr. Stringer.
--- NOTE | 2023-05-06 10:13 | NUR ---
UR NOTE MCG HIP FRACTURE, OPEN REPAIR (ISC) INPATIENT 05/06/23 MET CLINICAL INDICATIONS FOR PROCEDURE
--- NOTE | 2023-05-06 15:01 | NUR ---
05/06/23 1501 Shelby Pagan 1422 PT TO PACU FROM OR PER BED. PT RESPIRATIONS DANII AND UNLABORED.O2 AT 6L PER MASK. PT HAS URINE WICK IN PLACE, ON SUCTION. DRSG TO L HIP CDI. ICE APPLIED PER ORDER 1453 PT AWAKE AND ALERT, CONVERSING APPROPRIATELY. O2 DC'D, SATS REMAIN IN 90S. SPINAL LEVEL S2. CAN WIGGLE TOES BILATERALLY. DENIES PAIN OR NAUSEA. 1457 DR SAMAYOA AT BEDSIDE TO DISCUSS SURGERY.
--- NOTE | 2023-05-06 15:35 | NUR ---
PT ARRIVED TO ROOM AT THIS TIME, POST SURGERY. RNS EMMA VEGA AND PARMJIT TRANSPORTED PT VIA HOSPITAL BED FROM PACU. RECEIVED REPORT FROM RNS. PT IS A&O X4, REPORTS HER PAIN IS CURRENTLY 1 OUT OF 10 IN THE LEFT HIP. DRESSING TO LEFT HIP HAS A SMALL AMOUNT OF SHADOWING (SMALLER THAN THE SIZE OF A PENCIL ERASER) AND IS OTHERWISE C/D/I. PT IS SATTING AT 91% ON ROOM AIR WHILE EATING CRACKERS AND JELLO (SHE REQUESTED THESE) AND WAS PLACED ON 1LPM NC TO MAINTAIN SATS AT OR ABOVE 92%. PUREWICK IS IN PLACE, PLACED IN PACU. VSS. CALL LIGHT IN REACH. SCD'S ON, ANTI EMBOLIC STOCKINGS NOT ON BUT WILL BE PLACED. PT'S QUESTIONS ANSWERED. SIDE RAILS UP X4.
--- NOTE | 2023-05-06 17:50 | NUR ---
PT SWALLOWED ONE TAB OF SCHEDULED TYLENOL AT ABOUT 1730 HOURS (NOT THE TIME DOCUMENTED IN THE MAR) AFTER IT WAS CUT IN HALF. SHE WAS HAVING A DIFFICULT TIME GETTING THE TAB DOWN AND HAD ASKED TO SWALLOW IT WITH PUDDING. SHE HAD TO SPIT ONE OF THE TWO SCHEDULED TABS OUT AND ONLY INGESTED 2 HALVES OF ONE TAB. AT THIS TIME SHE WAS ALSO GIVEN ONE TAB OF NORCO FOR 5 OUT OF 10 PAIN IN HER LEFT HIP. PT REPORTS SHE HAS SENSATION DOWN THE ENTIRETY OF HER LEFT LEG AND FOOT AND THAT SHE FEELS LIKE SOMETHING IS "HOLDING DOWN MY LEFT FOOT". REASSURED THE PT THAT NOTHING IS HOLDING HER FOOT DOWN (SHE HAS BRUCE HOSE ON, SCDS ON, AND HAD REMOVED BLANKETS FROM OVER HER FEET).
--- NOTE | 2023-05-06 18:23 | NUR ---
PT RETURNED TODAY FROM SURGERY AT ABOUT 1535 HOURS TO HER ROOM. SHE HAS BEEN A&O X4. HER ROOM AIR SATS SEEM TO DECREASE WHEN SHE DOZES OFF, WELL WHILE SHE IS AWAKE, SO SHE HAS BEEN VARYING BETWEEN 1 AND 2LPM VIA NC TO MAINTAIN SATS AT OR ABOVE 92%. SHE HAS GOOD CMS BILATERALLY AND IS STARTING TO REPORT INCREASING PAIN. SHE HAS A DIFFICULT TIME SWALLOWING TABLETS UNLESS THEY ARE CUT IN HALF AND SHE REFUSES TO HAVE THEM CRUSHED. SHE HAS RECEIVED ONE 500MG TAB TYLENOL AND 1 NORCO AROUND 1730 HOURS. HER FAMILY HAS BEEN IN TO SEE HER AND SHE SEEMS TO BE IN A PLEASANT MOOD. SHE HAS ADVANCED HER DIET TO REGULAR WITHOUT COMPLAINTS OF NAUSEA, NO VOMITING. PT STILL HAS S/L IV IN LEFT AC BUT OR PLACED A 22G IN HER LEFT HAND THAT IS CURRENTLY S/L WELL.
--- NOTE | 2023-05-06 19:16 | NUR ---
SHIFT REPORT RECEIVED FROM NANDA VEGA.
--- NOTE | 2023-05-06 19:25 | NUR ---
PT IN BED, WITH HOB ELEVATED, TAKING ON PHONE, ALERT, SATS READING 73-80% ON RA, OXYGEN TURNED UP TO 4L/NC, SATS SLOWLY RISING, OXYGEN SLOWLY TUNED DOWN TO 2L/NC, SATS CURRENTLY AT 97%, PLAN TO MONITOR, PT WITHOUT COMPLAINTS AT THIS TIME, CONTINUES TO TALK ON PHONE.
--- NOTE | 2023-05-06 21:25 | NUR ---
RN TO ROOM, VS COMPLETED, PT REMAINS ON 2L PER NC, FINISHED APPROX 50% OF HER SANDWICH WITHOUT N/V. PT CHEERFUL AND TALKATIVE, DENIES NEED FOR PAIN MED PRIOR TO TRANSFER TO CHAIR WHILE LINEN CHANGED, STATES SHE WILL WANT MEDICATION WHEN SHE GOES BACK TO BED.
--- NOTE | 2023-05-06 22:05 | NUR ---
PT AWAKE, ALERT, ASSESSMENT COMPLETED, PT ASSISTED UP TO RECLINER, 2PA WITH FWW,BED LINEN CHANGED DUE TO INCONTINENT AROUND PURE WICK, PT TOLERATED TRANSFER WITH SLIGHT DIZZINESS, BACK TO BED, PERICARE GIVEN, NEW PURE WICK PLACED AND TO SX, BREATH SOUNDS CLEAR, PT REQUESTING PAIN MED, MEDICATED WITH 1 NORCO PER ORDER WITH APPLESAUCE FOR PAIN 12/03, ENCOURAGED PT TO DRINK MORE WATER, FRESH WATER GIVEN, HIP DRESSING INTACT WITH LIGHT SHADOWING OF NARROW STIP OF DARK DRAINAGE, BRUCE HOSE AND SCDS ON BILATERALLY, ICE TO LEFT HIP, AC SL REMOVED INTACT, DRESSING TO SITE. SL PATENT IN LEFT HAND, SIDE RAILS UP X 4, CALL LIGHT IN REACH, HOB ELEVATED APPROX 15 DEGREES.
--- NOTE | 2023-05-06 22:15 | NUR ---
LEFT AC D'DULCE INTACT, DUE TO CLOUDY FLUID IN LINE, SITE WNL.
--- NOTE | 2023-05-07 00:01 | NUR ---
PT ASLEEP, RESP EVEN AND REG, CPOX 96%, HR 79, RESP RATE 20, WITHOUT DISTRESS.
--- NOTE | 2023-05-07 01:30 | NUR ---
PT REMAINS ASLEEP, RESP EVEN AND REGULAR, SATS STABLE.
[2023-05-07 02:25] VITALS: BP 126/49
--- NOTE | 2023-05-07 02:46 | NUR ---
PATIENT RESTING IN BED WITH EYES CLOSED. RESPIRATIONS EVEN AND UNLABORED. PATIENT AWAKENS EASILY. VS OBTAINED AND RECORDED. ASSESSMENT COMPLETE. PATIENT STATES 6/10 PAIN IN LEFT HIP. PRN PAIN MEDICATION GIVEN, SEE MAR. PATIENT L HIP DRESSING C/D/I WITH MINIMAL SHADOWING ON DRESSING. FRESH ICE PACK IN PLACE ON LEFT HIP. TEDHOSE AND SCDs IN PLACE ON BLE. LUNG SOUNDS CLEAR. BOWEL TONES ACTIVE. FRESH ICE WATER PROVIDED. PATIENT REPOSITIONED IN BED. NO FURTHER NEEDS. CALL LIGHT IN REACH.
--- NOTE | 2023-05-07 04:11 | NUR ---
PT ASLEEP, RESP EVEN AND REG, O2 SATS 96-97%, PT WITHOUT SIGNS OF DISTRESS.
[2023-05-07 05:26] VITALS: BP 123/58
[2023-05-07 05:46] LABS: BASOPHILS 0.1 % (0-2); EOSINOPHILS 0.1 % (0-6); HEMATOCRIT 33.9 % (35.0-50.0); HEMOGLOBIN 10.8 g/dL (12.0-18.0); LYMPHOCYTES 5.5 % (24-44); MCH 26.5 (27-36); MCHC 31.7 g/dl (30-36); MCV 83.4 fl (81-99); MONOCYTES 4.4 % (0-12); NEUTROPHILS 89.9 % (39-80); PLATELET COUNT 184 K/uL (140-440); RBC 4.07 M/ul (4.3-5.7); RDW 15.5 (10.5-15.0)
[2023-05-07 05:56] LABS: ANION GAP 8.8 (7-21); BUN/CREATININE RATIO 22.61 (6.0-28.6); CALCIUM 8.4 mg/dL (8.5-10.1); CREATININE, SERUM 0.84 mg/dL (0.55-1.02); POTASSIUM 4.8 mmol/L (3.5-5.1)
--- NOTE | 2023-05-07 05:59 | NUR ---
CALL LIGHT ANSWERED. PATIENT NEEDING HELP WITH TV. VS AND I&Os OBTAINED AND RECORDED. PATIENT BREIF, CHUX, AND SLIDE SHEET CHANGED. PATIENT REPOSITIONED IN BED. PATIENT LEFT HIP DRESSING C/D/I. MINIMAL SHADOWING NOTED ON DRESSING. ICE PACK IN PLACE ON LEFT HIP. SCDs AND TEDHOSE IN PLACE ON BLE. SCHEDULED ABX ADMINISTERED, SEE MAR. PATIENT ANICETO WELL. PATIENT EMOTIONAL ABOUT RECENT LOSS OF . THERAPEUTIC COMMUNICATION UTILIZED WITH PATIENT. FRESH WATER PROVIDED. NEW PUREWICK IN PLACE. PATIENT STATES NO FURTHER NEEDS. CALL LIGHT IN REACH.
--- NOTE | 2023-05-07 06:26 | NUR ---
PATIENT REPORTS 5/10 PAIN IN LEFT HIP. PRN PAIN MEDICATION GIVEN PER PATIENT REQUEST. PATIENT TITRATED DOWN TO 1L NC. SAT 93%. PATIENT HAS NO FURTHER NEEDS. CALL LIGHT IN REACH.
--- NOTE | 2023-05-07 07:32 | NUR ---
REPORT RECIEVED FROM GARY GONZALEZ. PT IN BED, APPEARS TO BE SLEEPING.
[2023-05-07] MEDS ORDERED: HYDROXYZINE HCL25 MG PO (08:00)
[2023-05-07] MEDS ORDERED: TRAZODONE HCL50 MG PO (08:01)
[2023-05-07] MEDS ORDERED: GABAPENTIN300 MG PO (08:02)
[2023-05-07] MEDS ORDERED: BUPROPION XL300 MG PO (08:03)
[2023-05-07] MEDS ORDERED: WELLBUTRIN XL150 MG PO (08:04)
[2023-05-07] MEDS ORDERED: LOSARTAN POTASS50 MG PO (08:04)
--- NOTE | 2023-05-07 08:58 | NUR ---
PT SITTING UP IN BED EATING BREAKFAST. PT DENIES PAIN ATT. DRESSING CDI. PT HAS SENSATIONA AND MOVEMENT BUT CANNOT LIFT LEG OFF OF BED.
[2023-05-07 10:21] VITALS: BP 133/59
--- NOTE | 2023-05-07 11:12 | NUR ---
IN TO CHECK ON PT. DTR ROBERTO IN ROOM. WORKED WITH COOK PIE AND IS SITTING UP IN HER CHAIR.
[2023-05-07] MEDS ORDERED: ALEVE220 MG PO (11:43)
--- NOTE | 2023-05-07 11:43 | NUR ---
MED REC COMPLETE
--- NOTE | 2023-05-07 11:43 | NUR ---
MS REA. 30 MINUTES. FACILITATED STORY TELLING. PROVIDED SUPPORTIVE PRESENCE. PROVIDED PRAYER. PT AND FAMILY EXPRESSED APPRECIATION.
--- NOTE | 2023-05-07 12:30 | NUR ---
PT SITTING UP IN CHAIR EATING LUNCH. STATES THAT THE CHAIR IS UNCOMFORTABL EAND WILL CHANGE IT OUT AFTER SHE GOES BACK TO BED.
--- NOTE | 2023-05-07 13:00 | NUR ---
Spoke with pt and daughter. Pt cont. to have numbness in her knee and there is not a plan for dc today.
[2023-05-07 13:40] VITALS: BP 131/51
--- NOTE | 2023-05-07 14:13 | NUR ---
ADMINISTERED SCHEDULED MED PLUS A NORCO. PT REPORTING 4\10 PAIN. PT BACK TO BED WITH ONE PERSON PIVOT WITH FWW. ABLE TO BEAR WEIGHT BUT LIMITED MOVEMENT
--- NOTE | 2023-05-07 14:53 | NUR ---
PATIENT REPORTS NO CHEWING OR SWALLOWING PROBLEMS. SHE DID STATE SHE HAS AN ALLERGY TO [place] IT MAKES HER TONGUE BLISTER - THIS HAS BEEN ADDED TO [employer]. SHE HAS A HISTORY OF GASTRIC BYPASS SURGERY MANY YEARS AGO. SHE IS ON A REGULAR DIET AND IS DOING WELL. HELPED PLACE HER DINNER ORDER. SHE HAS A REGULAR DIET MENU AND KNOWS HOW AND WHEN TO CALL THE KITCHEN TO MAKE CHANGES TO HER MEALS. NO NUTRITION INTERVENTION NEEDED AT THIS TIME.
--- NOTE | 2023-05-07 16:10 | NUR ---
PT SITTING UP IN BED TALKING TO SISTER ON PHONE. DENIES NEEDS ATT.
--- NOTE | 2023-05-07 17:52 | NUR ---
SHIFTED PT IN BED AFTER DECLINING TO GET UP TO CHAIR. STATES THE LEG IS STILL PRETTY NUMB. ANSWERED QUESTIONS REGARDING BLOCK. PT ABLE TO FEEL ALL THE WAY UP LEG BUT STATES IT "STILL FEELS NUMB". DTR IN ROOM.
[2023-05-07 17:57] VITALS: BP 152/71
--- NOTE | 2023-05-07 19:34 | NUR ---
REPORT RECEIVED FROM DAY SHIFT RN. PT LYING IN BED ALERT AND ORIENTED. DENIES NEEDS. WHITE BOARD UPDATED. CALL LIGHT IN REACH.
[2023-05-07 20:14] VITALS: BP 153/60
--- NOTE | 2023-05-07 20:35 | NUR ---
CALL LIGHT ANSWERED. PT REPORTS LEFT HIP PAIN 01/03. PRN FOR PAIN ADMIN PER EMAR. PT REPOSITIONED IN BED WITH 2PA. CLEAN PUREWICK PLACED AFTER NAHID CARE DONE. LEFT HIP DRESSING WITH SCANT AMOUNT OLD SHADOWING. FRESH ICE PACK IN PLACE. PT REPORTS CONTINUED NUMBNESS IN LEFT THIGH FROM FEMORAL BLOCK. SCD'S/TEDS/HP IN PLACE. EVENING ASSESSMENT COMPLETE. SCHEDULED MEDS ADMIN PER EMAR WITH APPLESAUCE. PT DENIES QUESTIONS OR CONCERNS. PERSONAL BELONGINGS AND CALL LIGHT IN REACH.
--- NOTE | 2023-05-07 22:00 | NUR ---
pt called requested ice water, as well as pain medication. Tyenol offered, she refused saying it "hurts my stomach", will wait until the [place] is available, wants to be woke up even if sleeping. Ice on hip.
--- NOTE | 2023-05-08 00:12 | NUR ---
PT RESTING WITH EYES CLOSED. AWAKENS EASILY. REPORTS "DOZING ON AND OFF" AND PAIN IN LEFT HIP 02/03. PRN FOR PAIN ADMIN PER EMAR WITH BITES OF APPLESAUCE. ASSISTED TO REPOSITION IN BED. NO FURTHER NEEDS.
--- NOTE | 2023-05-08 00:50 | NUR ---
PT CONTINUES TO REPORTS LEFT HIP PAIN 02/03. PRN FOR PAIN TITRATED TO MAX DOSE. FRESH ICE PACK TO LEFT HIP. LEFT HIP ASSESSMENT UNCHANAGED, PT STATES "IT'S STARTING TO WAKE UP MORE." NO FURTHER NEEDS. CALL LIGHT IN REACH.
--- NOTE | 2023-05-08 01:54 | NUR ---
PT RESTING IN BED WITH EYES CLOSED. AWAKENS EASILY. SPOT CHECK SpO2 84%-92% ON RA. 1L/NC PLACED. SpO2 TO LOW 90'S. PT REPORTS SHE IS RESTING COMFORTABLY. DENIES NEEDS. CALL LIGHT IN REACH.
--- NOTE | 2023-05-08 04:08 | NUR ---
PT RESTING IN BED WITH EYES CLOSED. RESPIRATIONS EVEN. SpO2 95% WITH 1L/NC IN PLACE. HR 60'S. CALL LIGHT IN REACH.
[2023-05-08 05:35] VITALS: BP 129/67
[2023-05-08 05:41] LABS: BASOPHILS 0.4 % (0-2); EOSINOPHILS 5.7 % (0-6); HEMATOCRIT 33.5 % (35.0-50.0); HEMOGLOBIN 10.8 g/dL (12.0-18.0); LYMPHOCYTES 17.8 % (24-44); MCHC 32.4 g/dl (30-36); MCV 83.3 fl (81-99); MONOCYTES 8.1 % (0-12); PLATELET COUNT 183 K/uL (140-440); RBC 4.02 M/ul (4.3-5.7); RDW 15.4 (10.5-15.0)
--- NOTE | 2023-05-08 05:42 | NUR ---
VS AND I&O OBTAINED. NEW PUREWICK PLACED AFTER NAHID CARE. 2PA TO REPOSITION IN BED. FRESH ICE TO LEFT HIP. PT REPORTS LESS NUMBNESS IN LEFT THIGH THAN PREVIOUS ASSESSMENT. PRN FOR LEFT HIP PAIN ADMIN BY VISCOSITY TESTER. PT DENIES FURTHER NEEDS. CALL LIGHT IN REACH.
[2023-05-08 05:49] LABS: ANION GAP 11.2 (7-21); BUN/CREATININE RATIO 18.47 (6.0-28.6); CALCIUM 8.2 mg/dL (8.5-10.1); CREATININE, SERUM 0.92 mg/dL (0.55-1.02); POTASSIUM 4.2 mmol/L (3.5-5.1)
[2023-05-08 09:00] VITALS: BP 138/63
--- NOTE | 2023-05-08 09:05 | NUR ---
pT AWAKE, STIING UP IN CHAIR, CRYING, REASSURES. RECENTLY 02/16. AM CARE DONE. DID OWN ORAL CARE. SL LH PATENT. LHIP DRESSING WITH SHADOWING. SCDS, TEDHOSE, HEEL PROTECTORS IN PLACE. SLIGHTLY NUMB STILL FROM SURGERY. HX NEUROPATHY BILAT. COOPERATIVE WITH ASSESSMENTS. EATING BREAKFAST, REASSURED AND EFFORTS PRAISED.
--- NOTE | 2023-05-08 09:26 | NUR ---
c/o L hip pain, medicated with 1 NOrco, arranged with PT to give pt a second [place] in half an houor prior to PT working with pt for pain control. Tamiko GIBSON in room with pt. Pt still very emotional and crying. reassured,
--- NOTE | 2023-05-08 09:54 | NUR ---
MEDICATED WITH SECOND DOSE 1 TABLET OF NORCO, PRIOR TO GETTING UP WITH PT, SNOW
--- NOTE | 2023-05-08 10:27 | NUR ---
Pt awake, watching tv. room air. sitting up in bed. waiting for PT. purewick in place, draining dark yellow urine. no further c/o pain. ice to Lhip, scds, tedhose, heel protectors in place. calmer. will continue to reassure and acknowle her sadness
--- NOTE | 2023-05-08 11:03 | NUR ---
UR NOTE MCG HIP FRACTURE, OPEN REPAIR (ISC) 05/07/23 VARIANCE GL DAY 2
--- NOTE | 2023-05-08 11:20 | NUR ---
Pt worked with PT, Up to chair. currently in chair, legs elevated. no c/o pain. visiting with female friend, her mood is better, laughing.
--- NOTE | 2023-05-08 11:41 | NUR ---
c/O ITCHING, dR Paredes NITIFIED VIA PHONE. NEW ORDERS FOR bENADRYL PO 25MG Q6H PRN ITCHING OBTAINED. PT NOTIFIED
--- NOTE | 2023-05-08 11:46 | NUR ---
MS ROUNDS. SHORT VISIT PT HAD VISITOR IN ROOM. PROVIDED HOSPITALITY. PROVIDED PRAYER. PT EXPRESSED HOPE.
--- NOTE | 2023-05-08 11:58 | NUR ---
PT IN CHAIR, CALM, SMILING, FAMILY FRIEND IN ROOM. C/O ITCHING ALL OVER, BENADRYL 25MG PO GIVEN PER ITCHING. STATED"I WILL TRY IT, IT MAKES ME HYPER SOMETIMES, ILL LET YOU KNOW IF IT DOES THIS TIME'. PT INSTRUCTED TO DO LET THIS RN KNOW OF ADVERSE BENADRYL MED EFFECTS. FAMILY FRIEND STATED UNDERSTANDING TOO. WILL NOTIFY DR SAMAYOA IF PT REPORTS INCREAED HYPERACTIVITY AFTER TAKING BENADRYL
--- NOTE | 2023-05-08 13:43 | NUR ---
Back to chair 1PA,FWW worked with PT again. c/o dizziness. no further c/o itching or c/o adverse reaction to Benadryl
--- NOTE | 2023-05-08 13:48 | NUR ---
Spoke with Jem. She is working with PT. Block is gone and she is able to do leg lifts as we visit. She cont to plan for dc to home and her daughter will move in with her. 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 She states she has felt "off" since her surgery. Discussed with pt this can be normal following surgery. She has been through a lot in the last few days. Encouraged her to not burden home. Pt was not able to walk with PT today, but was able to transfer from the chair to the bed. Will follow up tomorrow.
[2023-05-08 13:52] VITALS: BP 134/58
--- NOTE | 2023-05-08 14:10 | NUR ---
RECIEVED HAND OFF REPORT FROM GARY GOLDBERG.
--- NOTE | 2023-05-08 14:13 | NUR ---
Pt medicated with 2 norco c/o L hip pain. no further c/o feeling dizzy. calm, cooperative. dressing L hip with old shadowing. worked with PT and she is back to bed. tolerated well, scds, heel protectors and gabrielle hose in place.
--- NOTE | 2023-05-08 15:18 | NUR ---
PT RESTING IN BED, EYES CLOSED. BREATHING EVEN AND UNLABORED. CALL LIGHT IN REACH
[2023-05-08 18:48] VITALS: BP 135/58
--- NOTE | 2023-05-08 19:37 | NUR ---
Report provided by shima RN. Patient resting in bed without complaint playing cards on her tablet. call light within reach.
[2023-05-08 19:47] VITALS: BP 144/65
--- NOTE | 2023-05-08 22:12 | NUR ---
Patient medicated prior to bedtiem for discomfort. Pericare provided and purewick and pad changed, VSS, Patient with lights out and attempting to go to sleep, no complaints, call light within reach.
--- NOTE | 2023-05-09 00:16 | NUR ---
Patient awake, leg aching after it was moved to adjusted heel protectors. Too early for pain medication. leg repositioned and will check with patient when medication can be given and patient agreeable with this plan.
--- NOTE | 2023-05-09 01:02 | NUR ---
Patient medicated for pain and is now going to try and get back to sleep. call light within reach.
--- NOTE | 2023-05-09 03:55 | NUR ---
Patient appears a sleep, appears comfortable, no noted distress, RR-18.
[2023-05-09 05:29] LABS: BASOPHILS 0.6 % (0-2); HEMATOCRIT 34.2 % (35.0-50.0); LYMPHOCYTES 25.9 % (24-44); MCH 26.9 (27-36); MCHC 32.1 g/dl (30-36); MCV 83.8 fl (81-99); NEUTROPHILS 54.5 % (39-80); PLATELET COUNT 209 K/uL (140-440); RBC 4.08 M/ul (4.3-5.7); RDW 15.9 (10.5-15.0)
[2023-05-09 05:42] LABS: ANION GAP 10.6 (7-21); BUN/CREATININE RATIO 19.38 (6.0-28.6); CALCIUM 8.4 mg/dL (8.5-10.1); CREATININE, SERUM 0.98 mg/dL (0.55-1.02); POTASSIUM 4.6 mmol/L (3.5-5.1)
[2023-05-09 06:34] VITALS: BP 136/53
--- NOTE | 2023-05-09 06:35 | NUR ---
Patient awake on her phone, stated she slept good this last part of the night. VSS except low grade temp of 99.5. Encouraged and patient did DB & C and gave her a acapella and she is using it now. further assessment without change. No complaints. CAll light within reach.
--- NOTE | 2023-05-09 08:09 | NUR ---
recieved report from nurse at 0705. pt requested ice water and coffee at the time. scd and foot pillows are on. pt just recieved morning meds. no other cares needed at this time. call light within reach
[2023-05-09 09:15] VITALS: BP 127/56
--- NOTE | 2023-05-09 09:36 | NUR ---
IM LETTER SIGNED. DISCUSSED CHANGE TO TRANSITIONAL CARE TOMORROW. QUESTIONS ANSWERED.
--- NOTE | 2023-05-09 10:40 | NUR ---
MS REA. 30 MINUTES. PT INITIALLY OPTIMISTIC ALTHOUGH ADMITTED FEELING NAUSEOUS. INFORMED RN RYLEE. PT INDICATED SADNESS BECASUE OF RECENT OF ANITA. LISTENED EMPATHETICALLY, PROVIDED SUPPORTIVE PRESENCE, ENCOURAGED FOCUS ON HOPE. PROVIDED GRIEF SUPPORT MATERIALS. PROVIDED PRAYER.
--- NOTE | 2023-05-09 10:50 | NUR ---
physical therapist jorgito approached me and said that pt was experiencing diaphoresis and weakness when she was working with pt. pt is currently sitting in her chair watching tv. pt says pain level is at 2 and that she feels fine at the moment. no observations noted that would cause concern but will continue to monitor. no other cares needed at this time. call light within reach
--- NOTE | 2023-05-09 11:33 | NUR ---
APPLIED DESENEX TO PATIENT GROIN AREA. PT ALSO HAD ANOTHER ICEPACK FOR LEFT HIP AND PT REQUESTED FOR COFFEE. PT CURRENTLY SITTING UP IN CHAIR WATCHING TV. NO OTHER CARES NEEDED AT THIS TIME CALL LIGHT WITHIN REACH
--- NOTE | 2023-05-09 12:52 | NUR ---
PT IS IN CHAIR SITTING UP EATING LUNCH AND IS VISITING WITH HER DAUGHTER. WHEN ASKED IF SHE NEEDED ANYTHING PT STATES NO AND IF I DO YOU WILL KNOW IT. NO OTHER CARES NEEDED OR REQUESTED AT THIS TIME CALL LIGHT WITHIN REACH
--- NOTE | 2023-05-09 13:45 | NUR ---
pt called and needed to use restroom but couldnt make it. so attends were changed and pt went from chair to bed. scd's placed back on. no other cares needed at this time. call light within reach
[2023-05-09 13:56] VITALS: BP 110/85
--- NOTE | 2023-05-09 15:24 | NUR ---
PT CMS INTACT. DRESSING CHANGE HAS MINOR DRAINAGE. NO CONCERN TO CHANGE AT THIS MOMENT. PT STATES PAIN LEVEL WAS AT TWO BUT WANTED TO CONTROL PAIN SO NORCO GIVEN. WITHHELD TYLENOL PER PT REQUEST DUE TO HER STATING THAT IT ALONE UPSETS HER STOMACH. NO OTHER CARES NEEDED OR REQUESTED AT THIS TIME. CALL LIGHT WITHIN REACH
[2023-05-09 17:28] VITALS: BP 129/63
--- NOTE | 2023-05-09 17:59 | OR ---
[facility] [address], [place] [address] Signed DATE OF OPERATION: 05/06/2023 SURGEON: Lee Stringer MD PREOPERATIVE DIAGNOSIS: Left femoral neck fracture. POSTOPERATIVE DIAGNOSIS: Left femoral neck fracture. PROCEDURE PERFORMED: Bipolar hemiarthroplasty, left. DUMPCART DRIVER: Gavi Perez PA-C. Gavi was present and critical for all portions of procedure. ANESTHESIA: Spinal. BLOOD LOSS: 200 mL. IMPLANTS: Catie size 11 Echo stem, -3 head and a 49 bipolar. BRIEF HISTORY: Lissette is a 77-year-old female with ground level fall last evening. She was admitted to the hospital through the ER and seen and evaluated this morning. Her initial x-ray showed a nondisplaced mid cervical fracture. Risks and benefits of open reduction and internal fixation were discussed with her and she elected to proceed. DESCRIPTION OF PROCEDURE: Once consent was obtained, she was taken to the operating room. She was placed on the fracture table and her legs were placed in traction boots, but no traction was applied. Image intensifier was brought in and initial radiograph showed about 5 mm of displacement of the femoral neck fracture. At that point, I thought there was a chance that this would not heal well. It would be better to switch to a bipolar hemiarthroplasty. I then went and talked to her daughter and explained the situation and received the new consent for bipolar hemiarthroplasty. We then took her out of Electronically Signed By: LEE STRINGER MD 05/09/23 9671 PATIENT NAME: LISSETTE BRIAN OPERATIVE REPORT DATE OF : 47 REPORT #: [id number] PHYSICIAN: LEE STRINGER MD PCP: ANN MARIE RABAGO MD REPORT IS CONFIDENTIAL AND NOT TO BE RELEASED WITHOUT AUTHORIZATION [facility] [address], [place] [address] Signed traction, switched to a regular hospital bed and positioned her in the right lateral decubitus position with an axillary roll. The hip was then prepped and draped in a standard sterile fashion. Standard anterior lateral approach was taken through the skin and subcutaneous tissue. The IT band was divided longitudinally. The IT band was somewhat scarred down to the trochanter. She did have significant abductor absence. The gluteus was torn from the anterior 3rd completely. The vastus was elevated subperiosteally around to the level of the lesser trochanter and the capsule was split to the level of the acetabular rim and peeled off the front of the . The femoral neck cut was then made one fingerbreadth above the lesser trochanter. The femoral head was removed and measured to 49. The hip was then reamed and broached up to an 11. The 11 stem was found to be quite well fitting. We then placed the 11 Echo stem until it was well-seated with good interference fit. We then trialed with a 0 and -3, the -3 fit the best. -3 head and bipolar were assembled and placed on the femoral neck and impacted after cleaning. The hip was then reduced. She had equal leg lengths and good range of motion. Negative Shuck test. The wound was copiously irrigated with Surgiphor followed by normal saline. The capsule was then closed using #2 FiberWire, the vastus and IT band layers were closed using #2 Stratafix, subcutaneous tissue with 0 Stratafix and the skin with tanvir. Wound was dressed with an Acticoat-7 dressing. She was awakened and taken to the recovery room in satisfactory condition. All sponge, needle, and instrument counts were correct. Lee Stringer MD BA/MODL /[id number] Copies: ~ Electronically Signed By: LEE STRINGER MD 05/09/23 1759 PATIENT NAME: LISSETTE BRIAN OPERATIVE REPORT DATE OF : 47 REPORT #: [id number] PHYSICIAN: LEE STRINGER MD PCP: ANN MARIE RABAGO MD REPORT IS CONFIDENTIAL AND NOT TO BE RELEASED WITHOUT AUTHORIZATION
--- NOTE | 2023-05-09 19:45 | NUR ---
Report given by shima RN. Patient awake comfortable and doing a puzzle on her tablet. no complaints. call light within reach.
--- NOTE | 2023-05-09 20:35 | NUR ---
Patient feeling good tonight, states she had a good day today. VSS, left hip dressing intact with small amt old drainage. CMS intact. Medicated for pain per patient request prior to bedtime. Reddness to lower abdomin resolved but still red to groin and between crack of buttock. pericare provided and medicated powder applied. Noted a small 1/2 inch hairline opening in crack of buttock and applied foam pad. purewick in place for night. Patient without further needs at this time, call light within reach.
[2023-05-09 21:48] VITALS: BP 147/59
--- NOTE | 2023-05-09 22:30 | NUR ---
Patient resting with eyes closed, appears comfortable with no noted distress, lights are out, call light within reach.
--- NOTE | 2023-05-10 00:31 | NUR ---
Patient resting comfortable with eyes closed, no noted distress, RR- 20. call light within reach.
--- NOTE | 2023-05-10 01:50 | NUR ---
THIS RN TAKING OVER pt CARE AT THIS TIME, RECEIVED REPORT FROM GARY QUIÑONEZ. pt AWAKE AND RESTING IN BED, PLAYING ON IPAD. NO NEEDS OR CONCERNS VERBALIZED, CALL LIGHT IN REACH.
--- NOTE | 2023-05-10 03:23 | NUR ---
PT MEDICATED WITH 2 NORCO FOR 6/10 LEFT HIP PAIN. PT ABLE TO SHIFT HER WEIGHT AND TIP TOWARD RIGHT SIDE. PT DENIES FURTHER REQUESTS, CALL LIGHT AND BELONGINGS WITHIN REACH.
--- NOTE | 2023-05-10 03:30 | NUR ---
rounded on pt, steven pena in room provided pt with prn pain medication, see emar. pt awake and a/ox4, repositioned in bed, laying on right side.pt educated about position changes to prevent skin breakdown, pt verbalized understanding. call light in reach. acticoat dressing to left hip remains intact, old scattered shadowing remains, but no new shadowing. heel protectors in place. no further needs or concerns verbalized, call light in reach. board updated and room tidied.
--- NOTE | 2023-05-10 04:29 | NUR ---
rounded on pt, pt resting in bed with eyes closed. on ra, rr even and unlabored with no distress or outward signs of pain noted. will continue to monitor, call light in reach. heel protectors, scd's, and gabrielle hose in place.
[2023-05-10 05:16] LABS: BASOPHILS 0.8 % (0-2); EOSINOPHILS 6.4 % (0-6); HEMATOCRIT 34.1 % (35.0-50.0); LYMPHOCYTES 21.2 % (24-44); MCH 27.1 (27-36); MCHC 32.2 g/dl (30-36); MCV 84.2 fl (81-99); NEUTROPHILS 61.6 % (39-80); PLATELET COUNT 209 K/uL (140-440); RBC 4.05 M/ul (4.3-5.7); RDW 15.7 (10.5-15.0)
[2023-05-10 05:25] LABS: ANION GAP 7.3 (7-21); BUN/CREATININE RATIO 18.39 (6.0-28.6); CALCIUM 8.5 mg/dL (8.5-10.1); CREATININE, SERUM 0.87 mg/dL (0.55-1.02); POTASSIUM 4.3 mmol/L (3.5-5.1)
[2023-05-10 05:29] VITALS: BP 119/57
--- NOTE | 2023-05-10 06:01 | NUR ---
assessment complete, pt up 2pa with fww and gait belt to bs to attempt to have bm. pt unable to have bm, but reports passing gas. allevyn to buttocks c/d/i. per report, pt has 1/2 inch hairline opening in crack of buttocks, unable to visualize d/t dressing. pt reminded to reposition self while in bed, pt verbalized understanding and able to change postions independently in bed. pt denies pain at this time, iv site remains saline locked. vss and i&o's collected. fresh water provided. cms intact, pt denies numbness and tingling. acticoat dressing unchanged from earlier in shift. bilateral scd's, gabrielle hose and heel protectors in place. pt left resting in bed, denies additional needs or concerns. call light in reach.
--- NOTE | 2023-05-10 07:25 | NUR ---
REPORT RECEIVED FROM DIRECTOR CASE MANAGEMENT GARY BLOCK. PATIENT SITTING UPRIGHT IN BED AND ON THEIR PHONE. LEFT HIP DRESSING WITH OLD DRAINAGE ON THE BANDAGE. PATIENT STATING NO FURTHER NEEDS AT THIS TIME. CALL LIGHT AND PERSONAL BELONGINGS ARE WITHIN REACH.
--- NOTE | 2023-05-10 09:14 | NUR ---
PATIENT FULL ASSESSMENT COMPLETE AND DOCUMENTED IN THE CHART. 0800 AND 0900 MEDICATIONS ADMINISTERED PER THE EMAR. PATIENT REFUSED SCHEDULED TYLENOL DOSE DUE TO IT MAKING HER HAVE HEART BURN. PATIENT STATED 0/10 PAIN AT THIS TIME. LUNG SOUNDS ARE CLEAR IN ALL LUNG GARCIA BILATERALLY. NORMAL S1 AND S2 SOUNDS AUSCULTATED. BOWEL SOUNDS ACTIVE IN ALL FOUR QUADRANTS. RADIAL AND PEDAL PULSES ARE STRONG. CAPILLARY REFILL LESS THAN 3 SECONDS IN THE UPPER AND LOWER EXTREMITITES. PATIENT HAS HEEL PROTECTORS, BRUCE HOSE, AND COMPRESSION DEVICES IN PLACE. PATIENT DRESSING ON LEFT HIP WITH DRY DRAINAGE BUT NOTHING NEW. PATIENT STATED NO FURTHER NEEDS AT THIS TIME. CALL LIGHT AND PERSONAL BELONGINGS ARE WITHIN REACH.
[2023-05-10 09:24] VITALS: BP 135/64
== END 2023-05-10 09:25 | disposition swing bed (61) | DRG 522 ==
LOC: ED 00:10 → MS 06:19
PROVIDERS: Internal Medicine; ADMIT Specialist; ATTEND Specialist
PROC: 0SRS01Z Replacement of Left Hip Joint, Femoral Surface with Metal Synthetic Substitute, Open Approach (ICD-10-PCS; principal; 2023-05-06 12:00)
DX: S72.035A Nondisplaced midcervical fracture of left femur, initial encounter for closed fracture (principal); N39.0 Urinary tract infection, site not specified; W18.39XA Other fall on same level, initial encounter; Y92.008 Other place in unspecified non-institutional (private) residence as the place of occurrence of the external cause; I25.10 Atherosclerotic heart disease of native coronary artery without angina pectoris; F41.9 Anxiety disorder, unspecified; B37.9 Candidiasis, unspecified; I10 Essential (primary) hypertension; Z88.0 Allergy status to penicillin; Z88.5 Allergy status to narcotic agent; Z88.8 Allergy status to other drugs, medicaments and biological substances; Z79.82 Long term (current) use of aspirin; Z98.84 Bariatric surgery status
CPT/HCPCS: 36415; 64447; 71045; 72170; 73501; 73502; 76942; 80048; 80053; 81001; 85025; 85610; 87077; 87088; 87186; 94760; 94762; 97110; 97162; 97530; A9270; C1776; J0690; J1100; J2001; J2250; J2405; J2704; J2795; J3010; J7121; U0002

== ENCOUNTER 2023-05-10 09:26 | Inpatient (IN) | payer MEDICARE, OTHER ==
[~2023-05-10] VITALS: Ht 160 cm; Wt 82.3 kg
[~2023-05-10 09:26] MED LIST changes: +BUPROPION XL300 MG PO; +GABAPENTIN300 MG PO; +HYDROXYZINE HCL25 MG PO; +LOSARTAN POTASS50 MG PO; +TRAZODONE HCL50 MG PO; +WELLBUTRIN XL150 MG PO
--- NOTE | 2023-05-10 10:05 | NUR ---
MED REC COMPLETE
--- NOTE | 2023-05-10 10:25 | NUR ---
PATIENT SITTING UPRIGHT IN BED. PATIENT GIVEN CEFTIN AND PRN NORCO ADMINISTERED PER THE EMAR. PATIENT STATED NO FURTHER NEEDS AT THIS TIME. CALL LIGHT AND PERSONAL BELONINGS ARE WITHIN REACH.
--- NOTE | 2023-05-10 11:25 | NUR ---
MS ÁLVARO. 15 MINUTES. PT EXPRESSED GRATITUDE FOR MATERIALS PROVIDED PREVIOUSLY. APPROPRIATELY PROCESSING LOSS OF FROM [employer] THIS YEAR. PROVIDED GRIEF EDUCATION, HOSPITALITY, ACTIVITY BOOK, PRAYER BLANKET. PT EXPRESSED GRATITUDE.
[2023-05-10 12:52] VITALS: BP 153/63
--- NOTE | 2023-05-10 13:51 | NUR ---
PATIENT SWING BED ADMISSION ASSESSMENT COMPLETE. PATIENT STATED NO FURTHER NEEDS AT THIS TIME. CALL LIGHT AND PERSONAL BELONGINGS ARE WITHIN REACH.
[2023-05-10 13:52] VITALS: BP 153/63
--- NOTE | 2023-05-10 14:55 | NUR ---
PHYSICAL THERAPY AND OCCUPATIONAL THERAPY ARE IN TO WORK WITH THE PATIENT IN THE PATIENTS ROOM. PATIENT CALL LIGHT AND PERSONAL BELONGINGS ARE WITHIN REACH.
[2023-05-10 21:28] VITALS: BP 150/67
--- NOTE | 2023-05-10 21:57 | NUR ---
Report provided by shima RN @ 0854. Patient visiting with children this evening. In good spirits. No compliants of pain. CMS to left lower extremety intact. VSS. Call light in reach.
--- NOTE | 2023-05-10 23:34 | NUR ---
Patient slept some. Awake now, requested and given a pain pill. Assessment without change. Wtching TV. Call light within reach.
--- NOTE | 2023-05-11 00:37 | NUR ---
Patient resting with eyes closed, appears comfortable, no noted distress.
--- NOTE | 2023-05-11 02:15 | NUR ---
Patient resting comfortably with eyes closed. appears comfortable, call light within reach.
--- NOTE | 2023-05-11 04:34 | NUR ---
Patient awake, requeated and given pain medication, assessment wihtout change, Encourage patient to increase fluid intake, urine slightly concentrated. Patient states she will. No further needs, TV on and patient playing cards on tablet. States she will try going back to sleep here shortly. call light within reach.
--- NOTE | 2023-05-11 07:20 | NUR ---
REPORT RECEIVED FROM DIRECTOR FOR [employer] RN. PATIENT LAYING ON THEIR BACK IN BED. EYES CLOSED AND RESPIRATIONS ARE EVEN AND UNLABORED. PATIENT CALL LIGHT AND PERSONAL BELONGINGS ARE WITHIN REACH.
--- NOTE | 2023-05-11 09:30 | NUR ---
PATIENT 0800 AND 0900 MEDICATIONS ADMINISTERED PER THE EMAR. PATIENT MOVED BACK TO THE BED AFTER HAVING NAUSEA WHILE SITTING UP IN THE RECLINER. PATIENT STATED THE NAUSEA WENT AWAY AFTER LYING IN THE BED FOR A FEW MINUTES. PATIENT STATED PAIN WAS 8/10. PRN NORCO ADMINISTERED PER THE EMAR. PATIENT STATED NO FURTHER NEEDS AT THIS TIME. CALL LIGHT AND PERSONAL BELONGINGS ARE WITHIN REACH.
[2023-05-11 09:48] VITALS: BP 140/58
--- NOTE | 2023-05-11 14:18 | NUR ---
PATIENT SWING BED ASSESSMENT COMPLETE AND DOCUMENTED IN THE CHART. PAIN STATED 0/10 PAIN AT THIS TIME. PATIENT LUNG SOUNDS ARE CLEAR BILATERALLY IN ALL LUNG GARCIA. NORMAL S1 AND S2 AUSCULTATED. RADIAL AND PEDAL PULSES ARE STRONG BILATERALLY. BOWEL SOUNDS ARE ACTIVE. PATIENT HAS NOT HAD A BOWEL MOVEMENT TODAY. PUREWICK IN PLACE AND PATIENT HAS A BRIEF ON. PATIENT HAS ALEVYN ON THE COCCYX. LEFT HIP SURGICAL DRESSING HAS DRY DRAINAGE. PATIENT HAS ICE ON THE LEFT HIP WITH BARRIER BETWEEN THE ICE PACK AND SKIN. PATIENT CAPILLARY REFILL IN THE UPPER AND LOWER EXTREMITITES IS LESS THAN 3 SECONDS. PATIENT DID NOT EAT A LOT OF THEIR LUNCH SO THE PATIENT STATED THEIR DAUGHTER WAS GOING TO BRING HER SOME PROTEIN SHAKES. PATIENT HAS 3 FAMILY MEMBERS AT THE BEDSIDE. PATIENT IS SITTING UP IN THE RECLINER AT THIS TIME WITH THE LOWER EXTREMITITES ELEVATED. PATIENT STATED NO FURTHER NEEDS AT THIS TIME. CALL LIGHT AND PERSONAL BELONGINGS ARE WITHIN REACH.
--- NOTE | 2023-05-11 16:11 | NUR ---
PATIENT IS LAYING IN BED. PAIN MEDICATIONS ADMINISTERED PER THE EMAR AND A FRESH BA OF ICE PLACED ON THE LEFT HIP. BARRIER BETWEEN THE SKIN AND THE ICE PACK IS IN PLACE. PATIENT STATED NO FURTHER NEEDS AT THIS TIME. CALL LIGHT AND PERSONAL BELONGINGS ARE WITHIN REACH.
--- NOTE | 2023-05-11 17:44 | NUR ---
PATIENT SITTING UPRIGHT IN BED AND EATING DINNER. PATIENT STATED HER PAIN IS NOW AT 3/10 AFTER GETTING THE NORCO AND TAKING A NAP. PATIENT STATED NO FURTHER NEEDS AT THIS TIME. CALL LIGHT AND PERSONAL BELONGINGS ARE WITHIN REACH.
--- NOTE | 2023-05-11 18:34 | NUR ---
PATIENT PUREWICK IN PLACE AND PATIENT NAHID CARE COMPLETE. PATIENT STATED NO FURTHER NEEDS AT THIS TIME. CALL LIGHT AND PERSONAL BELONGINGS ARE WITHIN REACH.
--- NOTE | 2023-05-11 19:30 | NUR ---
REPORT RECEIVED FROM DAY SHIFT RN. PATIENT RESTING IN BED WATCHING TV. PATIENT REPORTS NO FURTHER NEEDS. CALL LIGHT IN REACH.
[2023-05-11 19:53] VITALS: BP 123/48
--- NOTE | 2023-05-11 20:15 | NUR ---
PATIENT RESTING IN BED WATHCING TV. VS AND I&Os OBTAINED AND RECORDED. ASSESSMENT COMPLETE. PATIENT REPORTS PAIN IN LEFT HIP. PRN PAIN MEDICATION ADMINISTERED PER PATIENT REQUEST. SCHEDULED EVENING MEDICATIONS ADMINISTERED, SEE MAR. FRESH WATER PROVIDED. SCDs IN PLACE. TEDHOSE IN PLACE. L HIP DRESSING C/D/I WITH MINIMAL DRY SHADOWING. ICE PACK IN PLACE. PATIENT STATES NO FURTHER NEEDS. CALL LIGHT IN REACH.
--- NOTE | 2023-05-11 23:05 | NUR ---
PATIENT IN BED RESTING ON BACK WITH EYES CLOSED. RESPIRATIONS EVEN AND UNLABORED. CALL LIGHT IN REACH.
--- NOTE | 2023-05-12 00:10 | NUR ---
CALL LIGHT ANSWERED. PATIENT REPORTS 9/10 PAIN IN LEFT HIP. PRN PAIN MEDICATION ADMINISTERED, SEE MAR. PATIENT STATES NO FURTHER NEEDS. CALL LIGHT IN REACH.
--- NOTE | 2023-05-12 07:24 | NUR ---
REPORT RECEIVED FROM BARKER PEELER RN CARLOS. PATIENT IS RESTING WITH EYES CLOSED, RESPIRATIONS ARE EVEN AND UNLABORED. CALL LIGHT AND PERSONAL BELONGINGS ARE WITHIN REACH.
--- NOTE | 2023-05-12 10:20 | NUR ---
PATIENT WORKING WITH PT AT THIS TIME.
--- NOTE | 2023-05-12 12:08 | NUR ---
PATIENT IS SITTING UPRIGHT IN THE RECLINER WITH THE LOWER EXTREMITIES ELEVATED. PATIENT STATES THE PAIN IS A 5/10 AT THIS POINT BUT NOT REQUESTING PAIN MEDICATION UNTIL BEFORE SHE TRANSFERS BACK TO THE BED. PATIENT GIVEN FRESH BAG OF ICE. BARRIER BETWEEN THE SKIN AND ICE PACK IS IN PLACE. PATIENT STATED NO FURTHER NEEDS AT THIS TIME. CALL LIGHT AND PERSONAL BELONGINGS ARE WITHIN REACH.
--- NOTE | 2023-05-12 13:42 | NUR ---
PATIENT SITTING IN RECLINER AND EXPRESSED READINESS TO USE THE RESTROOM. PATIENT ABLE TO VOID AND HAD A SMALL BOWEL MOVEMENT. PATIENT THEN AMBULATED TO THE BED WITH A FRONT WHEELED WALKER AND SBA. PATIENT LUNG SOUNDS ARE CLEAR IN ALL LUNG GARCIA BILATERALLY. PATIENT ON ROOM AIR. PATIENT NORMAL S1 AND S2 AUSCULTATED. RADIAL AND PEDAL PULSES ARE STRONG. CAPILLARY REFILL IN THE UPPER AND LOWER EXTREMITITES ARE LESS THAN 3 SECONDS. PATIENT STATED PAIN AT A 6/10. PRN NORCO ADMINISTERED PER THE EMAR. PATIENT LEFT HIP DRESSING INTACT. DRESSING WITH DRY BROWN/RED DRAINAGE. ALEVYN ON THE COCCYX INTACT WITH NO DRAINAGE. PATIENT HAS ICE PACK ON THE LEFT HIP WITH BARRIER IN BETWEEN THE SKIN AND THE ICE PACK. PATIENT STATED NO FURTHER NEEDS AT THIS TIME. CALL LIGHT AND PERSONAL BELONGINGS ARE WITHIN REACH.
--- NOTE | 2023-05-12 16:49 | NUR ---
PATIENT IS SITTING UPRIGHT IN BED AND ALERT. PATIENT TALKING TO RN. PATIENT STATES THE PAIN IS UNCHGED BUT WHEN SHE IS NOT MOVING SHE IS VERY COMFORTABLE. PATIENT STATED NO FURTHER NEEDS AT THIS TIME. CALL LIGHT AND PERSONAL BELONGINGS ARE WITHIN REACH.
--- NOTE | 2023-05-12 19:40 | NUR ---
REPORT RECEIVED FROM DAY SHIFT RN. PATIENT RESTING IN BED WATCHING TV. PATIENT HAS NO CURRENT NEEDS. CALL LIGHT IN REACH.
[2023-05-12 21:05] VITALS: BP 127/64
--- NOTE | 2023-05-12 21:28 | NUR ---
PATIENT RESING IN BED. VS AND I&Os OBTAINED AND RECORDED. ASSESSMENT COMPLETE. DRESSING C/D/I WITH MINIMAL DRY SHADOWING. PATIENT REPORTS PAIN INLEFT HIP, BUT DENIES TYLENOL. FRESH ICE PACK PROVIDED. SCHEDULED MEDICATIONS ADMINISTERED, SEE MAR. PATIENT HAS NO FURTHER NEEDS. CALL LIGHT IN REACH.
--- NOTE | 2023-05-13 02:36 | NUR ---
PATIENT RESTING IN BED ON BACK WITH EYES CLOSED. RESPIRATIONS EVEN AND UNLABORED. CALL LIGHT IN REACH.
--- NOTE | 2023-05-13 03:18 | NUR ---
CALL LIGHT ANSWERED. PATIENT REPORTS PAIN IN LEFT HIP. PRN PAIN MEDICATION ADMINISTERED PER PATIENT REQUEST. NO FURTHER NEEDS REPORTED. CALL LIGHT IN REACH.
--- NOTE | 2023-05-13 05:23 | NUR ---
PATIENT RESTING IN BED. PATIENT AWAKENS EASILY. LEFT HIP DRESSING CHANGED. NEW BREIF AND PUREWICK IN PLACE. PATIENT ANICETO WELL. PATIENT DENIES ANY PAIN. SCDs IN PLACE. PATIENT HAS NO FURTHER NEEDS. CALL LIGHT IN REACH.
--- NOTE | 2023-05-13 07:59 | NUR ---
REPORT RECIEVED FROM GARY ROCK. PT RESTING ON BACK WITH EYES CLOSED. CALL LIGHT IN REACH.
--- NOTE | 2023-05-13 09:08 | NUR ---
ASSISTED PT TO THE RESTROOM. FINISHED BREAKFAST, ATE 100% PLUS PUDDING WITH PILLS. TALKED ABOUT WO CRYING. AMBULATED WELL.
--- NOTE | 2023-05-13 10:15 | NUR ---
PT ASKED FOR NORCO PAIN IS INCREASING AND FLIGHT READINESS TECHNICIAN WILL BE IN SHORTLY.
[2023-05-13 10:49] VITALS: BP 131/68
--- NOTE | 2023-05-13 11:23 | NUR ---
PT REMAINS SITTING IN CHAIR WORKING ON [employer]. DENIES NEEDS ATT.
--- NOTE | 2023-05-13 12:47 | NUR ---
PT SITTING UP IN CHAIR HAVING JUST FINISHED LUNCH. WORKED WITH BOTH PT AND OT THIS MORNING. DID WELL. TOLERATED WELL, PAIN CULLEN.
--- NOTE | 2023-05-13 13:33 | NUR ---
PT UP WALKING IN BOSS WITH CLOTH STRETCHER.
--- NOTE | 2023-05-13 14:20 | NUR ---
MS ROUNDS. SHORT VISIT PT INDICATED SHE WAS TRYING TO REST. PROVIDED SUPPORTIVE PRESENCE. PROVIDED SILENT PRAYER.
--- NOTE | 2023-05-13 16:52 | NUR ---
pt resting with eyes closed.
--- NOTE | 2023-05-13 17:54 | NUR ---
PATIENT IN BED RESTING. I&O'S CHARTED. PATIENT COMPLAINING OF A HEADACHE, RN NOTIFIED. CALL LIGHT IN REACH. NO FURTHER NEEDS AT THIS TIME.
--- NOTE | 2023-05-13 18:04 | NUR ---
PT CALLED TO REPORT A HEADACHE. TALKED ABOUT SHE COULD HAVE A NORCO WITH TYLENOL OR TYLENOL BY ITSELF. DECIDED THAT SHE WOULD LIKE TO TAKE THE NORCO AROUND 630 AND THEN GET UP TO THE RESTROOM.
--- NOTE | 2023-05-13 18:43 | NUR ---
PATIENT UP TO BATHROOM AND BACK TO BED, 1PA FWW. PATIENT AMBULATED WELL BUT HURTING AND REQUESTING PAIN MEDS AFTER. RN NOTIFIED. PURE WICK NOW IN PLACE FOR NIGHT TIME. CALL LIGHT IN REACH. NO FURTHER NEEDS AT THIS TIME.
--- NOTE | 2023-05-13 19:43 | NUR ---
REPORT RECEIVED FROM DAY SHIFT RN. PATIENT RESTING IN BED WATCHING FOOTBALL. PATIENT REPORTS NO PAIN. PATIENT HAS NO FURTHER NEEDS. CALL LIGHT IN REACH.
[2023-05-13 20:18] VITALS: BP 128/58
--- NOTE | 2023-05-13 20:33 | NUR ---
PATIENT RESTING IN BED. VS AND I&Os OBTAINED AND RECORDED. ASSESSMENT COMPLETE. LEFT HIP DRESSING C/D/I. PATIENT REPORTS NO PAIN AT THIS TIME. FRESH WATER PROVIDED. PATIENT HAS NO FURTHER NEEDS. CALL LIGHT IN REACH.
--- NOTE | 2023-05-13 21:15 | NUR ---
PATIENT CALLED NURSES STATION REQUESTING ASSISTANCE WITH BLANKET. PT. SCDS AND SOCKS READJUSTED. PT. COVERED UP, CALL LIGHT LEFT WITHIN REACH. NO OTHER NEEDS AT THIS TIME.
--- NOTE | 2023-05-14 02:20 | NUR ---
CALL LIGHT ANSWERED. PATIENT REPORTS 7/10 PAIN IN LEFT HIP. PRN PAIN MEDICATION ADMINISTERED PER PATIENT REQUEST. NO FURTHER NEEDS. CALL LIGHT IN REACH.
--- NOTE | 2023-05-14 06:37 | NUR ---
PATIENT RESTING IN BED. PUREWICK REMOVED. COFFEE PROVIDED. PATIENT REPORTS PAIN IN LEFT HIP. PRN PAIN MEDICATION ADMINISTERED PER PATIENT REQUEST. PATIENT HAS NO FURTHER NEEDS. CALL LIGHT IN REACH.
--- NOTE | 2023-05-14 08:02 | NUR ---
recieved report from nurse at 0716. pt is up in chair watching tv. no rquests made at that time. pt currently is still in chair and just took meds. requested pudding and apple juice to take meds. no other cares requested or needed at this time call light within reach
--- NOTE | 2023-05-14 08:29 | NUR ---
PATIENT SITTING UP IN CHAIR FOR BREAKFAST. BOARD UPDATED. CALL LIGHT IN REACH. NO FURTHER NEEDS AT THIS TIME.
--- NOTE | 2023-05-14 08:32 | NUR ---
RECIEVED PT REPORT AT 0745. PT WAS SLEEPING AT THAT TIME. EVEN AND UNLABORED BREATHING NOTED. CURRENTLY PT IS STILL SLEEPING WOKE HIM UP TO SEE IF HE WANTED TO TAKE MIRALAX AND SENNA. PT STATED NO. PT RECIEVED DAPTO AND WENT BACK TO SLEEP. JUST ENTERED ROOM. NO OTHER CARES REQUESTED OR NEEDED AT THIS TIME CALL LIGHT WITHIN REACH
[2023-05-14 09:35] VITALS: BP 121/59
--- NOTE | 2023-05-14 10:45 | NUR ---
pt is currently visiting with the physical therapist.
--- NOTE | 2023-05-14 11:31 | NUR ---
MS ROUNDS. PT TALKING WITH CASE MANAGEMENT. DID NOT DISTURB. PROVIDED SILENT PRAYER.
--- NOTE | 2023-05-14 11:40 | NUR ---
Spoke with Jem. She states she wants to go home tomorrow, she is tearful. She states being here brings up memories of her recently spouse. We discussed, Dr. Stringer had wanted her to stay until Saturday. I can text him. Daughter here and would like pt to stay until at least . She would like to work with PT and have instruction for when they are home. Pt does agree with this. I texted Dr. Stringer and update and he agreed for DC on . Pt was able to walk 100 ft today with PT. I will give the IM letter for swingbed and survey sheet.
--- NOTE | 2023-05-14 13:11 | NUR ---
pt called and requested pain medication. states pain is at a 5. pt also ready to move back into bed from being up in chair since 0700 this morning. pt binta had a great physical therapy session and ready to rest. no other requests needed at this time call light within reach
--- NOTE | 2023-05-14 16:52 | NUR ---
IM letter signed and survery for program printed. Pt tearful when she completed the letter. She misses her spouse. We discussed [facility]. She states she needs to call them, she just hasn't mentally got there. Survey left with pt.
--- NOTE | 2023-05-14 19:44 | NUR ---
RECEIVED REPORT FROM DAY SHIFT RN. PATIENT IS RESTING IN BED WATCHING TV. PATIENT DENIES ANY NEEDS. CALL LIGHT IN REACH.
[2023-05-14 21:06] VITALS: BP 140/56
--- NOTE | 2023-05-14 21:12 | NUR ---
PATIENTS VITALS TAKEN AND RECORDED. INTAKE AND OUTPUT RECORDED. PATIENTS PM MEDS GIVEN PER ORDER. PATIENT RATES PAIN AT A 5/10, PRN PAIN MEDICATION GIVEN PER ORDER. ASSESMENT COMPLETED. PATIENTS DRESSSING ON LEFT HIP IS C/D/I. PUREWICK IN PLACE. PATIENT PROVIDED WITH FRESH ICE WATER. TEDHOSE AND SCDS IN USE ON BILAT LOW EXT. PATIENT IS AAOX4. PATIENT DENIES ANY FURTHER NEEDS. CALL LIGHT IN REACH.
--- NOTE | 2023-05-15 00:23 | NUR ---
PATIENT IS RESTING IN BED WATCHING TV. PATIENT DENIES ANY PAIN. PATIENT DENIES ANY NEEDS. CALL LIGHT IN REACH.,
--- NOTE | 2023-05-15 02:03 | NUR ---
PATIENT IS RESTING IN BED WITH EYES CLOSED, RR 15. CALL LIGHT IN REACH.
--- NOTE | 2023-05-15 04:17 | NUR ---
PATIENT IS RESTING IN BED WITH EYES CLSOED, RR 15. CALL LIGHT IN REACH.
--- NOTE | 2023-05-15 06:40 | NUR ---
pt RATES PAIN 5/10 IN LEFT HIP. PRN PAIN MEDICATION ADMINISTERED. pt OFFERED PO SNACK, STATES "I JUST ATE SOMETHING". NO ADDITIONAL REQUESTS. CALL LIGHT IN REACH.
--- NOTE | 2023-05-15 08:05 | NUR ---
REPORT RECEIVED FROM NIGHT RN, ALL QUESTIONS ANSWERED. PT RESTING IN BED WITH EYES CLSOED, RESPIRATIONS EVEN AND UNLABORED. CALL LIGHT IN REACH.
[2023-05-15 09:20] VITALS: BP 133/54
--- NOTE | 2023-05-15 09:29 | NUR ---
MORNING ASSESSMENT COMPLETE. PT AMBULATED WITH FWW TO RESTROOM AND TO RECLINER FOR BREAKFAST. PT TOLERATED MABULATION WELL. DRESSING TO LEFT HIP CDI. PT RATES PAIN 4/10, DENIES NEED FOR INTERVENTION AT THIS TIME. LINENS CHANGED. PT GIVEN MORNING MEDICATIONS, SEE EMAR. DENIES FURTHER NEEDS AT THIS TIME. CALL LIGHT IN REACH.
--- NOTE | 2023-05-15 11:05 | NUR ---
MS REA. PT RECEIVING NURSING CARE. DID NOT VISIT. PROVIDED SILENT PRAYER.
--- NOTE | 2023-05-15 11:15 | NUR ---
Spoke with Jem. She cont. to plan on dc tomorow. She is very pleased with her care and the PT department. Daughter will be in at 1 pm for instruction from PT today. She denies needs. Plan for dc tomorrow. DC letter and survey completed.
--- NOTE | 2023-05-15 13:09 | NUR ---
PHYSICAL THERAPY IN ROOM WORKING WITH PATIENT. PT DENIES NEEDS AT THIS TIME. CALL LIGHT IN REACH.
--- NOTE | 2023-05-15 14:05 | NUR ---
MS REA. DAUGHTER IN ROOM WITH PT. BOTH EXPRESSED ANTICIPATION OF PENDING DISCHARGE. PT STRUGGLING WITH RECENT LOSS OF . PROVIDED GRIEF COUNSELING; PROVIDED SUPPORTIVE PRESENCE; NORMALIZED EXPERIENCE; PROVIDED SILENT PRAYER. 30 MINUTES.
--- NOTE | 2023-05-15 19:15 | NUR ---
REPORT RECEIVED FROM GARY MCKEE. pt RESTING IN BED AWAKE. DENIES PAIN. DENIES ADDITIONAL REQUESTS. pt EXCITED TO DC HOME TOMORROW. LAUGHS WHEN RN STATES YOU CAN GET THAT PEPSI AND POPCORN FINALLY. CALL LIGHT IN REACH.
[2023-05-15 21:00] VITALS: BP 127/58
--- NOTE | 2023-05-15 21:20 | NUR ---
pt AWAKE RESTING IN BED, COMPLAINS OF 7/10 PAIN IN LEFT HIP AND DOWN LEG. ASSESSMENT COMPLETE. DRESSING CDI L HIP. SCDS PLACE ON pt AT THIS TIME. PRN NORCO ADMINISTERED FOR PAIN CONTROL. ICE PACK PLACED ON HIP. VSS. CALL LIGHT IN REACH.
--- NOTE | 2023-05-15 23:55 | NUR ---
ROUNDED ON pt. pt RESTING IN BED AWAKE, WORKING ON PUZZLE ON TABLET. STATES PAIN IS "REALLY GOOD, 2/10 MAYBE" IN LEFT HIP. TV ON. CALL LIGHT IN REACH. pt DENIES ADDITIONAL NEEDS.
--- NOTE | 2023-05-16 03:11 | NUR ---
CHECKED ON pt. RESTING IN BED WITH EYES CLOSED. BREATHING UNLABORED. SCDS ON. CALL LIGHT WITHIN REACH.
--- NOTE | 2023-05-16 06:26 | NUR ---
CALL LIGHT ANSWERED. pt COMPLAINS OF PAIN IN LEFT HIP. STATES SLEPT WELL. PRN PAIN MEDICATION ADMINISTERED WITH PO SNACK. SCDS ON. NEW PUREWICK PLACED. [address] URINE OUT THIS SHIFT. pt HAS CALL LIGHT AND PERSONAL SUPPLIES IN REACH.
[2023-05-16] MEDS ORDERED: SENNA LAX8.6 MG PO (07:30)
[2023-05-16] MEDS ORDERED: HYDROCODON-ACE1 EA11 PO (07:30)
[2023-05-16] MEDS ORDERED: ASPIRIN EC325 MG PO (07:31)
--- NOTE | 2023-05-16 07:43 | NUR ---
REPORT RECEIVED FROM NIGHT RN - PT RESTING IN BED WITH EYES CLOSED, RR EVEN AND UNLABORED. CALL LIGHT IN REACH.
--- NOTE | 2023-05-16 09:00 | NUR ---
IDT meeting cancelled as pt was discharged at [address] Stringer. Spoke with pt and she prefers to not complete as she plans on dc to home as soon as possible.
[2023-05-16 10:04] VITALS: BP 118/61
--- NOTE | 2023-05-16 10:08 | NUR ---
RN ROUNDING ON PT - RESTING IN BED TALKING WITH CASE MANAGMENT. PROMOTIONS REPRESENTATIVE IN ROOM.
--- NOTE | 2023-05-16 10:10 | NUR ---
Spoke with Lissette. Updated I sent her chart to [facility] as she had requested for HH. Pt expresses how happy she is with the Swing bed program. She denies any needs and is waiting for her daughter to transport her home.
--- NOTE | 2023-05-16 11:08 | NUR ---
WENT IN AND PACKED UP PATIENT AND PUT IT ON THE CART. NOW WE ARE WAITING FOR HER DAUGHTER TO SHOW. PATIENT IS STILL IN BED WAITING FOR HER CLOTHES.
--- NOTE | 2023-05-16 11:20 | NUR ---
DC HOME EDUCATION PROVIDED TO PT - STATES UNDERSTANDING OF ALL INSTRUCTIONS AND FOLLOW UP APPOINTMENT. PT IN GOOD SPIRITS AND EXCITED TO GO HOME.
--- NOTE | 2023-05-16 15:38 | NUR ---
Chart faxed to [facility] Ombudsman's office.
== END 2023-05-16 11:42 | disposition home or self-care (01) | DRG 561 ==
LOC: MS 09:26
PROVIDERS: ADMIT Specialist; ATTEND Specialist
DX: Z47.1 Aftercare following joint replacement surgery (principal); S72.001D Fracture of unspecified part of neck of right femur, subsequent encounter for closed fracture with routine healing; F32.A Depression, unspecified; F41.9 Anxiety disorder, unspecified; R32 Unspecified urinary incontinence; Z88.0 Allergy status to penicillin; Z88.5 Allergy status to narcotic agent; Z88.8 Allergy status to other drugs, medicaments and biological substances; Z91.018 Allergy to other foods; Z79.899 Other long term (current) drug therapy
CPT/HCPCS: 97110; 97116; 97163; 97165; 97530; 97535; A9270; Q0177